=== PATIENT | female | born 1960 | race Caucasian/White ===

== ENCOUNTER 2017-08-05 11:59 | Emergency (ER) | payer MEDICAID, SELFPAY ==
[2017-08-05 13:35] VITALS: BP 132/84; PULSE 100; RESP 20; TEMP 37.2; O2SAT 96; BMI 34.9
[2017-08-05 13:45] LABS: UTC Influenza A Antigen Positive (Negative); UTC Influenza B Antigen Negative (Negative)
--- NOTE | 2017-08-05 14:30 | HMH.EDUTC ---
[facility] [place] Impression: Influenza A Disposition: Home, Self-Care Condition on Discharge: Good Instructions: DI for Influenza -- Adult Additional Instructions: * Too late to start tamiflu. Most effective when started within 48 hours of symptoms onset. * Lots of rest * Increase fluids, water, gatorade, powerade, pedialyte if /toddler/child * Monitor Temp. Tylenol every 4 hours as needed no more then 5 times a day or 4000mg in 24 hours and/or ibuprofen every 6 hours as needed no more then 3200mg in 24 hours (as long as your primary care doctor has told you that it is ok to take both) for fever/aches/pain. ER if fever no less than 101 despite tylenol and Ibuprofen * You (or your child) are contagious until no fever, aches, chills x 24 hours without medication for symptoms. * * Per hospital policy, Your throat swab was sent for culture. Those results are typically sent to your primary care. Be sure to follow up in 2-3 days if no improvement so they can review those results and treat if necessary. If you don't have primary care, I recommend you get one but in the mean time, you will have to return to a walk in clinic. * With your number of medications and allergies, can discuss symptom management with your primary care. I am NOT comfortable giving steroids for your flu symptoms at this time due to risk of complications Follow up IMMEDIATELY for new or worsening symptoms, improvement followed by suddenly feeling worse OR no noticeable improvement over the next 48-72 hours. 911 for difficulty breathing Referrals: Tyron Roth MD [Primary Care Provider] - (IMMEDIATELY for new or worsening symptoms, improvement followed by suddenly feeling worse OR no noticeable improvement over the next 48-72 hours. 911 for difficulty breathing ) Time of Disposition: 14:36 Medical Decision Making Vital Signs: 08/05/17 13:35 Temperature 98.9 F Temperature Source Temporal Artery Scan Pulse Rate [Left] 100 H Respiratory Rate 20 Blood Pressure [Right Arm] 132/84 Blood Pressure Mean [Right Arm] 100 Blood Pressure Source [Right Arm] Automatic Cuff Blood Pressure Position [Right Arm] Sitting 02 Sat by Pulse Oximetry 96 Oxygen Delivery Method Room Air - Lab Data Lab Results 08/05/17 13:44: Influenza Type A Ag Positive A, Influenza Type B Ag Negative, Strep Scn Rapid Clinic Neg[facility] - Roland Inquiry Pt receiving controlled substance: No [facility] [place] - General Stated complaint: possible flu or strep throat Time Seen by Provider: 08/05/17 14:30 Mode of Arrival: Ambulatory Source of Information: Patient Limitations: No Limitations Description of Symptoms (Recalled from Triage Doc. by RN): COUGH, FEVER 3 DAYS HEENT Symptoms (Recalled from RN notes): Yes Resp Symptoms (Recalled from RN notes): No Skin Symptoms (Recalled from RN notes): No MS Symptoms (Recalled from RN notes): No Functional Status (Recalled from RN notes): N - History of Present Illness Provider Complaint: c/o I think I have the flu or strep . Sore throat and cough x 3 days now. Spouse had similiar symptoms and goes to adult daycare where flu has been present. Pt limited to what she can take due to medications and allergies. Has tried dayquil but not helping. - Related Data Home Medications Medication Instructions Recorded Confirmed albuterol sulfate 2 mg/5 mL syrup 2 mg PO Q8H 08/05/17 albuterol sulfate HFA 90 2 puff INHALATION Q6H 08/05/17 mcg/actuation aerosol inhaler atorvastatin 10 mg tablet 10 mg PO QDAY 08/05/17 cholecalciferol (vitamin D3) 3,000 2,000 unit PO QDAY tab 08/05/17 unit tablet clobetasol 0.05 % topical cream 1 applic TOPICAL BID 08/05/17 08/05/17 cyclobenzaprine 10 mg tablet 10 mg PO TID 08/05/17 fluticasone 50 mcg/actuation nasal 50 mcg INTRANASAL Q12H PRN 08/05/17 spray,suspension gabapentin 300 mg capsule 300 mg PO TID 08/05/17 ketotifen 0.025 % (0.035 %) eye 1 drp OPHTHALMIC BID 08/05/17 drops l
--- NOTE | 2017-08-05 14:34 | ED_ITS ---
[facility] [place] Clinical Impression: Influenza A Disposition: Home, Self-Care Condition on Discharge: Good Instructions: DI for Influenza -- Adult Additional Instructions: * Too late to start tamiflu. Most effective when started within 48 hours of symptoms onset. * Lots of rest * Increase fluids, water, gatorade, powerade, pedialyte if infant/toddler/child * Monitor Temp. Tylenol every 4 hours as needed no more then 5 times a day or 4000mg in 24 hours and/or ibuprofen every 6 hours as needed no more then 3200mg in 24 hours (as long as your primary care doctor has told you that it is ok to take both) for fever/aches/pain. ER if fever no less than 101 despite tylenol and Ibuprofen * You (or your child) are contagious until no fever, aches, chills x 24 hours without medication for symptoms. * * Per hospital policy, Your throat swab was sent for culture. Those results are typically sent to your primary care. Be sure to follow up in 2-3 days if no improvement so they can review those results and treat if necessary. If you don' t have primary care, I recommend you get one but in the mean time, you will have to return to a walk in clinic. * With your number of medications and allergies, can discuss symptom management with your primary care. I am NOT comfortable giving steroids for your flu symptoms at this time due to risk of complications Follow up IMMEDIATELY for new or worsening symptoms, improvement followed by suddenly feeling worse OR no noticeable improvement over the next 48-72 hours. 911 for difficulty breathing Referrals: Tyron Roth MD [Primary Care Provider] - (IMMEDIATELY for new or worsening symptoms, improvement followed by suddenly feeling worse OR no noticeable improvement over the next 48-72 hours. 911 for difficulty breathing ) Time of Disposition: 14:36 Medical Decision Making Vital Signs: 08/05/17 13:35 Temperature 98.9 F Temperature Source Temporal Artery Scan Pulse Rate [Left] 100 H Respiratory Rate 20 Blood Pressure [Right Arm] 132/84 Blood Pressure Mean [Right Arm] 100 Blood Pressure Source [Right Arm] Automatic Cuff Blood Pressure Position [Right Arm] Sitting 02 Sat by Pulse Oximetry 96 Oxygen Delivery Method Room Air - Lab Data Lab Results 08/05/17 13:44: Influenza Type A Ag Positive A, Influenza Type B Ag Negative, Strep Scn Rapid Clinic [place] - Roland Inquiry Pt receiving controlled substance: No [facility] [place] HPI - General Stated complaint: possible flu or strep throat Time Seen by Provider: 08/05/17 14:30 Mode of Arrival: Ambulatory Source of Information: Patient Limitations: No Limitations Description of Symptoms (Recalled from Triage Doc. by RN): COUGH, FEVER 3 DAYS HEENT Symptoms (Recalled from RN notes): Yes Resp Symptoms (Recalled from RN notes): No Skin Symptoms (Recalled from RN notes): No MS Symptoms (Recalled from RN notes): No Functional Status (Recalled from RN notes): N - History of Present Illness Provider Complaint: c/o I think I have the flu or strep . Sore throat and cough x 3 days now. Spouse had similiar symptoms and goes to adult daycare where flu has been present. Pt limited to what she can take due to medications and allergies. Has tried dayquil but not helping. - Related Data Home Medications Medication Instructions Recorded Confirmed albuterol sulfate 2 mg/5 mL syrup 2 mg PO Q8H 08/05/17 albuterol sulfate HFA 90 2 puff INHALATION Q6H 08/05/17 mcg/actuation aero
== END 2017-08-05 14:50 | disposition home or self-care (01) ==
PROVIDERS: Emergency Provider Nurse Practitioner Family; Family Provider Physician Assistant; PCP Emergency Medicine
DX: J10.1 Influenza due to other identified influenza virus with other respiratory manifestations (principal); I10 Essential (primary) hypertension; E11.9 Type 2 diabetes mellitus without complications; J44.9 Chronic obstructive pulmonary disease, unspecified; Z88.0 Allergy status to penicillin; Z88.1 Allergy status to other antibiotic agents; Z88.6 Allergy status to analgesic agent; Z88.8 Allergy status to other drugs, medicaments and biological substances
CPT/HCPCS: 87276; 87430; 87804; 87880; 99202

== ENCOUNTER → 2017-08-23 07:28 | Outpatient (CLI) | payer MEDICAID, SELFPAY ==
--- NOTE | 2017-08-23 07:31 | CT_ITS ---
CT cervical spine wo con Ordering Physician: Promise Troncoso Patient Age: 57 years: Female HISTORY: ITS.REASON: NECK SHOULDER PAIN Right neck right shoulder pain TECHNIQUE: Helical CT scanning performed through the cervical spine with sagittal and coronal reconstructions on CT workstation. COMPARISON :None available FINDINGS No fracture nor subluxation at cervical spine. Vertebral bodies are intact . No fracture. Facets intact with with mild degenerative changes throughout the C-spine, most evident at lower C-spine bilateral.. Degenerative disc space narrowing at cervical spondylosis most evident C6/7 following the C5-C6. C6/7 there is mild diffuse posterior marginal osteophytes. The hypertrophic ridging mildly effaces anterior aspect of thecal sac. Mild foraminal encroachment to the right . If symptoms progress consider MRI as it is more sensitive to the esophagus components that may be present here CT best visualizes osseous elements at the cervical canal C5/6 spurring & uncovertebral joint hypertrophy to left yields a mild/moderate left foraminal encroachment. .. Prevertebral soft tissues appear normal. Scattered small nodes throughout the cervical spine. No significant additional findings. Dense calcified likely granulomatous feature at the medial left upper lobe Visualized paranasal sinuses clear as are the mastoid air cells.. IMPRESSION: 1. No fracture nor subluxation 2. Degenerative disc changes & cervical spondylosis C6/7 & C5/6: C6/7 degenerative disc space narrowing with mild diffuse posterior hypertrophic ridging and mild bilateral foraminal encroachment.... most evident to the right C5-C6. Spurring to the left/ Uncovertebral joint hypertrophy to the left yielding mild left foraminal encroachment.
== END ==
PROVIDERS: Family Provider Physician Assistant; PCP Emergency Medicine; Visit Provider Psychiatry & Neurology Neurology
DX: M54.2 Cervicalgia (principal); M25.511 Pain in right shoulder; M25.512 Pain in left shoulder
CPT/HCPCS: 72125

== ENCOUNTER 2017-10-25 13:00 | Emergency (ER) | payer MEDICAID, SELFPAY ==
[2017-10-25 13:02] VITALS: BP 167/100; PULSE 104; RESP 20; TEMP 36.8; O2SAT 97; BMI 34.2
--- NOTE | 2017-10-25 13:38 | HMH.EDHA ---
ED Disposition Clinical Impression: Migraine Qualifiers: Migraine type: other Status migrainosus presence: without status migrainosus Intractability: not intractable Qualified Code(s): G43.809 - Other migraine, not intractable, without status migrainosus Disposition: Home, Self-Care Condition on Discharge: Good Instructions: DI for Migraine Referrals: Bhumika White PA [Primary Care Provider] - Time of Disposition: 13:38 - Critical Care Critical Care Time: No Attestation: On 10/25/17, the high probability of a clinically significant, sudden or life threatening deterioration of the following system(s) required my full and direct attention, intervention and personal management. The time I documented below is in addition to time spent performing reported procedures but includes the following listed in this critical care notation. Medical Decision Making - Medical Records Medical records reviewed: Yes: I reviewed the patient's medical records. - Roland Inquiry Pt receiving controlled substance: No Vital Signs: 10/25/17 13:02 10/25/17 14:15 Temperature 98.2 F 98.6 F Temperature Source Oral Pulse Rate 102 H Pulse Rate [Right Radial] 104 H Respiratory Rate 20 20 Blood Pressure 118/71 Blood Pressure [Right Arm] 167/100 Blood Pressure Mean [Right Arm] 122 Blood Pressure Source [Right Arm] Automatic Cuff Blood Pressure Position [Right Arm] Supine 02 Sat by Pulse Oximetry 97 Oxygen Delivery Method Room Air Room Air Orders (Tests/Meds): ED MEDICATIONS Discontinued Medications Generic Name Dose Route Start Last Admin Trade Name Freq PRN Reason Stop Dose Admin Diphenhydramine HCl 50 mg 10/25/17 13:36 10/25/17 14:10 Benadryl 50mg/1ml Vial IM 10/25/17 13:37 50 mg ONCE ONE Administration Ketorolac Tromethamine 30 mg 10/25/17 13:36 10/25/17 14:09 Toradol 30mg/Ml Vial IM 10/25/17 13:37 30 mg ONCE ONE Administration - Reevaluation(s) Time: 13:35 Reevaluation #1: Patient medically stable, improving, advised to follow-up with pain management. Headache HPI - General Chief Complaint: Headache Stated Complaint: head pain and shoulder pain Time Seen by Provider: 10/25/17 13:15 Mode of Arrival: Ambulatory Limitations: No Limitations Description of Symptoms (Recalled from ER Triage Doc. by RN): migraine started this am , pt has pain on the left side of head . pt also is c/o neck pain which is chronic pt see's pain mangement and gets botox injections for h/a and neck pain - History of Present Illness MD Complaint: migraine Onset (ago): day(s) (1) Onset description: gradual, awoke with symptoms Location: left, temporal Severity: moderate Severity scale (1-10): 8 Quality: throbbing, constant Relieving factors: nothing Exacerbating factors: light, noise, rest Context: occurred at rest Associated symptoms: photophobia, sensitivity to sound Treatments prior to arrival: none - Related Data Home Medications Medication Instructions Recorded Confirmed albuterol sulfate 2 mg/5 mL syrup 2 mg PO Q8H 08/05/17 albuterol sulfate HFA 90 2 puff INHALATION Q6H 08/05/17 mcg/actuation aerosol inhaler atorvastatin 10 mg tablet 10 mg PO QDAY 08/05/17 cholecalciferol (vitamin D3) 3,000 2,000 unit PO QDAY tab 08/05/17 unit tablet clobetasol 0.05 % topical cream 1 applic TOPICAL BID 08/05/17 08/05/17 cyclobenzaprine 10 mg tablet 10 mg PO TID 08/05/17 fluticasone 50 mcg/actuation nasal 50 mcg INTRANASAL Q12H PRN 08/05/17 spray,suspension gabapentin 300 mg capsule 300 mg PO TID 08/05/17 ketotifen 0.025 % (0.035 %) eye 1 drp OPHTHALMIC BID 08/05/17 drops lisinopril 5 mg tablet 5 mg PO QDAY 08/05/17 pantoprazole 40 mg tablet,delayed 40 mg PO QDAY 08/05/[address] 40 mg granules 40 mg PO QDAY 08/05/17 08/05/17 delayed-release for susp in packet Allergies Allergy/AdvReac Type Severity Reaction Status Date / Time SERGIO Inhibitors
[2017-10-25 14:15] VITALS: BP 118/71; PULSE 102; RESP 20; TEMP 37; O2SAT 96
== END 2017-10-25 14:15 | disposition home or self-care (01) ==
PROVIDERS: Emergency Provider Emergency Medicine; Family Provider Physician Assistant; PCP Physician Assistant
DX: G43.909 Migraine, unspecified, not intractable, without status migrainosus (principal); J45.909 Unspecified asthma, uncomplicated; E11.9 Type 2 diabetes mellitus without complications; E78.5 Hyperlipidemia, unspecified; I10 Essential (primary) hypertension; Z88.0 Allergy status to penicillin; Z88.1 Allergy status to other antibiotic agents; Z88.6 Allergy status to analgesic agent; Z88.8 Allergy status to other drugs, medicaments and biological substances
CPT/HCPCS: 96372; 99281

== ENCOUNTER → 2017-10-29 09:18 | Outpatient (CLI) | payer MEDICAID, SELFPAY ==
--- NOTE | 2017-10-29 09:20 | MM_ITS ---
MM Dig screening mamm BI w/CAD CAD Screening COMPARISON: Digital mammograms 10/27/2016 and 10/22/2015 INDICATION: There is no personal or family history of breast cancer TECHNIQUE: Standard CC and MLO images were obtained. R2 CAD reviewed. FINDINGS: The breasts are closed primarily of fat with mild to moderate fiber glandular densities in the subareolar regions bilaterally. The findings are stable and unchanged from previous exams. There is no suspicious lesion in either breast and there are no suspicious microcalcifications. There are few benign-appearing calcifications left breast. IMPRESSION: Stable exam no suspicious lesion seen BI-RADS Category: 2 Benign Finding(s) RECOMMENDED FOLLOW-UP: 1YR - 1 YEAR FOLLOW-UP (A letter has been sent to the patient regarding results of the study.)
== END ==
PROVIDERS: Family Provider Physician Assistant; PCP Physician Assistant; Visit Provider Physician Assistant
DX: Z12.31 Encounter for screening mammogram for malignant neoplasm of breast (principal)
CPT/HCPCS: 77067

== ENCOUNTER → 2017-12-07 10:58 | Outpatient (REF) | payer MEDICAID, SELFPAY ==
[2017-12-07 14:21] LABS: Basophils % 0.4 % (0.1-2.0); Eosinophils # 0.1 K/mm3 (0.0-0.4); Hematocrit 46.3 % (37.0-47.0); Hemoglobin 15.2 g/dL (12.2-16.2); Lymphocytes # 1.8 K/mm3 (0.7-4.5); Lymphocytes % 34.5 K/mm3 (10-50); Mean Corpuscular HGB Conc 32.9 g/dL (31.8-35.4); Mean Corpuscular Hemoglobin 30.4 pg (27.0-31.2); Mean Corpuscular Volume 92.3 fl (81-99); Mean Platelet Volume 7.6 fl (7.4-10.4); Monocytes # 0.4 K/mm3 (0.1-1.0); Monocytes % 7.6 % (1.7-9.3); Neutrophils # 2.8 K/mm3 (1.8-7.8); Neutrophils % 55.5 % (37.0-80.0); Platelet Count 229 K/mm3 (142-424); Red Blood Count 5.01 M/mm3 (4.20-5.40); Red Cell Distribution Width 12.5 % (11.5-17.5); White Blood Count 5.1 K/mm3 (4.8-10.8)
[2017-12-07 14:38] LABS: Alanine Aminotransferase 44 U/L (12-78); Albumin Level 3.5 gm/dL (3.4-5.0); Alkaline Phosphatase 90 U/L (46-116); Anion Gap 13.6 mEq/L (5-15); Aspartate Amino Transferase 28 U/L (15-37); Bilirubin,Total 0.4 mg/dL (0.2-1.0); Blood Urea Nitrogen 17 mg/dL (7-18); Calcium 9.8 mg/dL (8.5-10.1); Carbon Dioxide 28 mmol/L (21.0-32.0); Chloride 106 mmol/L (98-107); Chol/HDL Ratio 3.4 (1-3.5); Cholesterol 162 mg/dL (140-200); Creatinine,Serum 1.12 mg/dL (0.55-1.02); Estimated Glomerular Filt Rate 50 ml/min (>60); GFR (African American) 61 ML/MIN (>60); Globulin 3.4 gm/dl (1.3-3.2); Glucose 84 mg/dL (74-106); HDL Cholesterol 48 mg/dL (29-89); LDL Cholesterol 77 mg/dL (0-130); Potassium 4.6 mmoL/L (3.5-5.1); Sodium 143 mmol/L (136-145); T4 (Thyroxine) 8.7 ug/dl (4.7-13.3); Thyroid Stimulating Hormone 2.17 uIU/ml (0.358-3.740); Total Protein,Serum 6.9 gm/dL (6.4-8.2); Triglycerides 186 mg/dL (30-200); VLDL Cholesterol 37 mg/dL (0-40)
[2017-12-09 06:20] LABS: Vitamin D 25 Hydroxy 61.9 ng/mL (30.0-100.0)
== END ==
LOC: LAB 10:58
PROVIDERS: Visit Provider Physician Assistant
DX: M25.531 Pain in right wrist (principal); I10 Essential (primary) hypertension; E55.9 Vitamin D deficiency, unspecified; R00.0 Tachycardia, unspecified; G62.9 Polyneuropathy, unspecified
CPT/HCPCS: 80053; 80061; 82652; 84436; 84443; 85025

== ENCOUNTER → 2017-12-28 13:29 | Outpatient (CLI) | payer MEDICAID, SELFPAY | PROVIDERS: Family Provider Physician Assistant; PCP Physician Assistant; Visit Provider Internal Medicine | DX: R00.2 Palpitations (principal); I10 Essential (primary) hypertension | CPT/HCPCS: 93306 ==

== ENCOUNTER → 2018-02-10 11:20 | Outpatient (REF) | payer MEDICAID, SELFPAY ==
[2018-02-10 13:42] LABS: Basophils % 0.3 % (0.1-2.0); Eosinophils # 0.2 K/mm3 (0.0-0.4); Eosinophils % 2.8 % (0.1-12.0); Hematocrit 47.4 % (37.0-47.0); Hemoglobin 14.7 g/dL (12.2-16.2); Lymphocytes # 1.8 K/mm3 (0.7-4.5); Lymphocytes % 29.3 K/mm3 (10-50); Mean Corpuscular HGB Conc 31.1 g/dL (31.8-35.4); Mean Corpuscular Hemoglobin 28.9 pg (27.0-31.2); Mean Corpuscular Volume 93.1 fl (81-99); Mean Platelet Volume 8.3 fl (7.4-10.4); Monocytes # 0.2 K/mm3 (0.1-1.0); Monocytes % 4.1 % (1.7-9.3); Neutrophils # 3.8 K/mm3 (1.8-7.8); Neutrophils % 63.4 % (37.0-80.0); Platelet Count 247 K/mm3 (142-424); Red Blood Count 5.09 M/mm3 (4.20-5.40)
[2018-02-10 14:02] LABS: Hemoglobin A1C 5.7 % (0.0-7.0)
[2018-02-10 14:12] LABS: Alanine Aminotransferase 43 U/L (12-78); Albumin Level 3.4 gm/dL (3.4-5.0); Alkaline Phosphatase 96 U/L (46-116); Anion Gap 13.4 mEq/L (5-15); Aspartate Amino Transferase 20 U/L (15-37); Bilirubin,Total 0.5 mg/dL (0.2-1.0); Blood Urea Nitrogen 17 mg/dL (7-18); Calcium 8.8 mg/dL (8.5-10.1); Carbon Dioxide 26 mmol/L (21.0-32.0); Chloride 107 mmol/L (98-107); Creatinine,Serum 1.04 mg/dL (0.55-1.02); Estimated Glomerular Filt Rate 55 ml/min (>60); GFR (African American) 66 ML/MIN (>60); Globulin 3.3 gm/dl (1.3-3.2); Glucose 144 mg/dL (74-106); Potassium 4.4 mmoL/L (3.5-5.1); Sodium 142 mmol/L (136-145); T4 (Thyroxine) 8.1 ug/dl (4.7-13.3); Thyroid Stimulating Hormone 1.63 uIU/ml (0.358-3.740); Total Protein,Serum 6.7 gm/dL (6.4-8.2)
[2018-02-10 15:57] LABS: Erythrocyte Sedimentation Rate 10 mm/hr (0-30)
[2018-02-11 14:29] LABS: Anti-Jo-1 <0.2 AI (0.0-0.9); Anti-Smith Antibody <0.2 AI (0.0-0.9); Antichromatin Antibodies <0.2 AI (0.0-0.9); Antiscleroderma-70 Antibodies <0.2 AI (0.0-0.9); RNP Antibodies <0.2 AI (0.0-0.9); Sjogren's Anti-SS-A <0.2 AI (0.0-0.9); Sjogren's Anti-SS-B <0.2 AI (0.0-0.9)
[2018-02-11 18:00] LABS: Anti-Centromere B Antibodies <0.2 AI (0.0-0.9); Anti-DNA (DS) Ab Qn <1 IU/mL (0-9); Folate 10.9 ng/mL (>3.0); Vitamin B12 505 pg/mL (232-1245); Vitamin D 25 Hydroxy 63.2 ng/mL (30.0-100.0)
== END ==
LOC: LAB 11:20
PROVIDERS: Visit Provider Physician Assistant
DX: E78.5 Hyperlipidemia, unspecified (principal); M54.12 Radiculopathy, cervical region
CPT/HCPCS: 80053; 82607; 82652; 82746; 83036; 84436; 84443; 85025; 85651; 86225; 86235

== ENCOUNTER → 2018-02-18 13:53 | Outpatient (CLI) | payer MEDICAID, SELFPAY ==
[2018-02-18 15:18] VITALS: PULSE 84; PULSE 86
== END ==
PROVIDERS: Family Provider Physician Assistant; PCP Physician Assistant; Visit Provider Physician Assistant
DX: R06.00 Dyspnea, unspecified (principal)
CPT/HCPCS: 94060; 94640

== ENCOUNTER 2018-03-04 07:55 | Outpatient (RCR) | payer MEDICAID, SELFPAY | END 2018-03-04 07:56 | disposition home or self-care (01) | LOC: PT 07:55 | PROVIDERS: Family Provider Physician Assistant; PCP Physician Assistant; Visit Provider Emergency Medicine | DX: R29.6 Repeated falls (principal) ==

== ENCOUNTER → 2018-09-01 16:26 | Outpatient (CLI) | payer MEDICAID, SELFPAY ==
[2018-09-01 16:44] LABS: Basophils % 0.4 % (0.1-2.0); Eosinophils # 0.1 K/mm3 (0.0-0.4); Eosinophils % 1.7 % (0.1-12.0); Hematocrit 47.7 % (37.0-47.0); Hemoglobin 14.7 g/dL (12.2-16.2); Lymphocytes # 1.4 K/mm3 (0.7-4.5); Lymphocytes % 24.3 % (10-50); Mean Corpuscular HGB Conc 30.8 g/dL (31.8-35.4); Mean Corpuscular Hemoglobin 29.9 pg (27.0-31.2); Mean Platelet Volume 9.1 fl (7.4-10.4); Monocytes # 0.4 K/mm3 (0.1-1.0); Monocytes % 7.4 % (1.7-9.3); Neutrophils # 3.9 K/mm3 (1.8-7.8); Neutrophils % 66.2 % (37.0-80.0); Platelet Count 213 K/mm3 (142-424); Red Blood Count 4.92 M/mm3 (4.20-5.40); Red Cell Distribution Width 12.5 % (11.5-17.5); White Blood Count 5.9 K/mm3 (4.8-10.8)
[2018-09-01 17:08] LABS: Alanine Aminotransferase 39 U/L (12-78); Albumin Level 3.4 gm/dL (3.4-5.0); Alkaline Phosphatase 103 U/L (46-116); Anion Gap 13.3 mEq/L (5-15); Aspartate Amino Transferase 19 U/L (15-37); Bilirubin,Total 0.5 mg/dL (0.2-1.0); Blood Urea Nitrogen 17 mg/dL (7-18); Calcium 9.2 mg/dL (8.5-10.1); Carbon Dioxide 29 mmol/L (21.0-32.0); Chloride 104 mmol/L (98-107); Chol/HDL Ratio 3.3 (1-3.5); Cholesterol 172 mg/dL (140-200); Creatinine,Serum 0.97 mg/dL (0.55-1.02); Estimated Glomerular Filt Rate 59 ml/min (>60); GFR (African American) 71 ML/MIN (>60); Globulin 3.4 gm/dl (1.3-3.2); Glucose 84 mg/dL (74-106); HDL Cholesterol 52 mg/dL (29-89); LDL Cholesterol 94 mg/dL (0-130); Potassium 4.3 mmoL/L (3.5-5.1); Sodium 142 mmol/L (136-145); T4 (Thyroxine) 9.4 ug/dl (4.7-13.3); Thyroid Stimulating Hormone 2.02 uIU/ml (0.358-3.740); Total Protein,Serum 6.8 gm/dL (6.4-8.2); Triglycerides 132 mg/dL (30-200); VLDL Cholesterol 26 mg/dL (0-40)
[2018-09-01 17:46] LABS: Hemoglobin A1C 5.6 % (0.0-7.0)
[2018-09-03 12:58] LABS: Vitamin D 25 Hydroxy 63.7 ng/mL (30.0-100.0)
== END ==
PROVIDERS: Visit Provider Physician Assistant
DX: E78.2 Mixed hyperlipidemia (principal); I10 Essential (primary) hypertension; Z86.39 Personal history of other endocrine, nutritional and metabolic disease
CPT/HCPCS: 80053; 80061; 82652; 83036; 84436; 84443; 85025

== ENCOUNTER → 2018-11-24 09:55 | Outpatient (CLI) | payer MEDICAID, SELFPAY ==
--- NOTE | 2018-11-24 09:57 | MM_ITS ---
MM Dig screening mamm BI w/CAD CAD Screening COMPARISON: Digital mammograms with CAD 10/29/2017 and 10/27/2016 INDICATION: There is no personal or family history of breast cancer TECHNIQUE: Standard CC and MLO images were obtained. R2 CAD reviewed. FINDINGS: The breasts are composed primarily of fat with minimal fibroglandular densities in the subareolar regions bilaterally. There is no new or suspicious lesion in either breast and no suspicious microcalcifications. IMPRESSION: Fatty type breast parenchyma with no suspicious lesion seen BI-RADS Category: 1 Negative RECOMMENDED FOLLOW-UP: 1YR - 1 YEAR FOLLOW-UP (A letter has been sent to the patient regarding results of the study.)
== END ==
PROVIDERS: PCP Physician Assistant; Visit Provider Physician Assistant
DX: Z12.31 Encounter for screening mammogram for malignant neoplasm of breast (principal)
CPT/HCPCS: 77067

== ENCOUNTER → 2018-11-29 10:41 | Outpatient (POV) | payer MEDICAID, SELFPAY | PROVIDERS: Visit Provider Internal Medicine | DX: Z00.00 Encounter for general adult medical examination without abnormal findings (principal) ==

== ENCOUNTER → 2018-12-16 12:24 | Outpatient (CLI) | payer MEDICAID, SELFPAY ==
--- NOTE | 2018-12-16 12:25 | MR_ITS ---
MR lumbar spine wo con, MR 3-d myelogram/MRCP HISTORY: Upper, Mid and low back pain. Left leg numbness. ITS.REASON: pain radiating down legs ORDERING PHYSICIAN: SHANNAN Cleaning PATIENT AGE: 58 years Comparison: MRI 06/18/17 TECHNIQUE: Standard multiplanar multiecho sequences are performed without contrast. 3-D MIP and myelographic images are also rendered and reviewed FINDINGS: There is normal alignment. The spinal cord in that the L2 level. There is mild degenerative disc disease at T11-T12 and T12-L1. Mild disc desiccation is noted at L2-L3 with preservation of the disc height. L3-L4: Unremarkable. L4-L5 and L5-S1 shows minimal facet hypertrophic change. There is minimal left sided foraminal narrowing at L5-S1. No disc herniation or canal stenosis. IMPRESSION: 1. Moderate degenerative changes with mild facet and ligamentum flavum hypertrophy with mild left foraminal narrowing at L5-S1. 2. No disc herniation or canal stenosis and no significant change from 06/18/2017
== END ==
PROVIDERS: PCP Physician Assistant; Visit Provider Physician Assistant
DX: M54.5 Low back pain (principal)
CPT/HCPCS: 72148; 76376

== ENCOUNTER → 2018-12-21 11:15 | Outpatient (CLI) | payer MEDICAID, SELFPAY ==
--- NOTE | 2018-12-21 11:21 | XR_ITS ---
XR soft tissue neck CLINICAL INDICATION: 4 body sensation ITS.REASON: Dysphagia, FB sensation ORDERING PHYSICIAN: SHANNAN Cleaning PATIENT AGE: 58 years Comparison: None FINDINGS: No prevertebral soft tissue swelling, air-fluid level, or subglottic stenosis. The epiglottis has an unremarkable appearance. There is a faint calcific density posterior to the larynx as seen on the lateral view measuring 2 mm. This is of questionable clinical significance. A small foreign body is not completely excluded.. This may only be related to laryngeal calcification. CT may confirm if symptoms persist. There is degenerative disc disease at C6-C7 with small anterior and posterior osteophytes IMPRESSION: 1. Small calcific density anterior to the C5-C6 level which may represent some calcification of the posterior larynx versus a foreign body. CT may be of further value if symptoms persist. 2. Otherwise negative
== END ==
PROVIDERS: PCP Physician Assistant; Visit Provider Physician Assistant
DX: R13.10 Dysphagia, unspecified (principal)
CPT/HCPCS: 70360

== ENCOUNTER → 2018-12-21 19:52 | Outpatient (CLI) | payer MEDICAID, SELFPAY | PROVIDERS: PCP Physician Assistant; Visit Provider Nurse Practitioner Family | DX: G47.33 Obstructive sleep apnea (adult) (pediatric) (principal); R40.0 Somnolence; R06.83 Snoring; J44.9 Chronic obstructive pulmonary disease, unspecified | CPT/HCPCS: 95810 ==

== ENCOUNTER → 2018-12-22 13:11 | Outpatient (CLI) | payer MEDICAID, SELFPAY ==
[2018-12-22 13:38] LABS: Basophils % 0.6 % (0.1-2.0); Eosinophils # 0.1 K/mm3 (0.0-0.4); Eosinophils % 2.8 % (0.1-12.0); Hematocrit 42.2 % (37.0-47.0); Hemoglobin 14.2 g/dL (12.2-16.2); Lymphocytes # 1.3 K/mm3 (0.7-4.5); Lymphocytes % 29.5 % (10-50); Mean Corpuscular HGB Conc 33.5 g/dL (31.8-35.4); Mean Corpuscular Hemoglobin 30.4 pg (27.0-31.2); Mean Corpuscular Volume 90.5 fl (81-99); Mean Platelet Volume 6.8 fl (7.4-10.4); Monocytes # 0.3 K/mm3 (0.1-1.0); Monocytes % 6.3 % (1.7-9.3); Neutrophils # 2.7 K/mm3 (1.8-7.8); Neutrophils % 60.9 % (37.0-80.0); Platelet Count 221 K/mm3 (142-424); Red Blood Count 4.67 M/mm3 (4.20-5.40); Red Cell Distribution Width 12.9 % (11.5-17.5); White Blood Count 4.5 K/mm3 (4.8-10.8)
[2018-12-22 16:59] LABS: Alanine Aminotransferase 52 U/L (12-78); Albumin Level 3.3 gm/dL (3.4-5.0); Albumin/Globulin Ratio 1.1 (1.1-1.8); Alkaline Phosphatase 87 U/L (46-116); Anion Gap 12.1 mEq/L (5-15); Aspartate Amino Transferase 29 U/L (15-37); Bilirubin,Total 0.6 mg/dL (0.2-1.0); Blood Urea Nitrogen 9 mg/dL (7-18); Calcium 9.4 mg/dL (8.5-10.1); Carbon Dioxide 30 mmol/L (21.0-32.0); Chloride 104 mmol/L (98-107); Creatinine,Serum 0.98 mg/dL (0.55-1.02); Estimated Glomerular Filt Rate 58 ml/min (>60); GFR (African American) 71 ML/MIN (>60); Globulin 3.1 gm/dl (1.3-3.2); Glucose 94 mg/dL (74-106); Potassium 4.1 mmoL/L (3.5-5.1); Sodium 142 mmol/L (136-145); Total Protein,Serum 6.4 gm/dL (6.4-8.2)
== END ==
PROVIDERS: Visit Provider Otolaryngology
DX: R00.2 Palpitations (principal)
CPT/HCPCS: 36415; 80053; 85025; 93005

== ENCOUNTER → 2018-12-27 09:19 | Outpatient (CLI) | payer MEDICAID, SELFPAY ==
--- NOTE | 2018-12-27 09:22 | FL_ITS ---
EXAM: Barium swallow/esophagram. INDICATION: ITS.REASON: dysphagia ORDERING PHYSICIAN: Bull Monteiro MD PATIENT AGE: 58 years COMPARISON: None TECHNIQUE: In the upright position the patient was observed to swallow barium in both the AP and lateral view. The cervical esophagus was examined under fluoroscopy with images obtained. The patient was then placed prone in the right anterior oblique position and was observed to swallow barium with Valsalva technique . FLUOROSCOPY TIME: 59 seconds FINDINGS: There was no evidence of aspiration. There was normal peristalsis. No filling defects or mucosal abnormalities. No masses or strictures. The esophagus is midline. No external indentation upon the esophagus. No evidence of hiatal hernia IMPRESSION: Negative barium swallow.
== END ==
PROVIDERS: PCP Physician Assistant; Visit Provider Otolaryngology
DX: R13.10 Dysphagia, unspecified (principal); J38.7 Other diseases of larynx
CPT/HCPCS: 74220

== ENCOUNTER 2018-12-29 07:36 | Day surgery (SDC) | payer MEDICAID, SELFPAY ==
[2018-12-27 14:05] VITALS: BMI 33.6
[2018-12-29] VITALS (9 sets, daily range): BP systolic 95–124; BP diastolic 56–81; PULSE 75–97; RESP 18–20; TEMP 36.1–36.8; O2SAT 90–96
[2018-12-29 08:09] LABS: POC Glucose,Bedside 89 (70-110)
--- NOTE | 2018-12-29 08:25 | P.PN_ITS ---
[facility] Anesthesia Checklist - Patient Identification Patient Identification: Arm Band, Verbal (Name & ) - Structural Data Admitted From: Home Planned Operative Procedure/s: laryngoscopy Consent for Planned Operative Procedure(s) Verified: Yes Verified Documents: History and Physical - NPO Status Verified Time NPO: 00:00 - Additional verifications Patient : No Anesthesia Reactions: No Hx Blood Transfusions: No Blood Transfusion Reaction: No Cephalosporin Allergy: No Previous Colonoscopy: Yes - Cardiovascular Assessment Heart Sounds: S1 & S2 Pulse Strength: Baseline Pulse Rhythm: Regular Peripheral Edema: No - Airway Assessment C-Spine Mobility Assessed: Yes TMJ Mobility Assessed: Yes Dentition: Good Dentition - Neurological Assessment Level of Consciousness: Awake, Alert, Appropriate Hx Seizures: No Numbness or tingling in extremities: No - Anesthesia Plan Anesthesia Risk discussed: Yes Anesthesia Plan: Verified ASA Class: III Anesthesia Type: [facility] History I have reviewed the patient's past medical history: Yes Medical History: Reports:: Asthma, Chronic Obstructive Pulmonary Disease (COPD), Diabetes Mellitus Type 2, Hyperlipidemia, Hypertension, Seizures, Ulcer Denies:: Cancer, Diabetes Mellitus Type 1, Internal Pacemaker, MRSA *Have you ever received a pneumonia vaccine?: Yes *Have you received a flu vaccine this season?: Yes Other Medical History: Reports: Arthritis. Denies: Blood Transfusion Reaction Other Surgeries: Yes: Colon Resection, , Hysterectomy-Total. No: Pacemaker Amputation: No Fractures: No - *Social History Educational Level: Completed Grade School Smoking Status: Former smoker Alcohol Intake: never Alcohol Intake Frequency:: other *Occupational Status:: disabled Housing: house Household Members: family *Travel in the last 8 weeks: None - Psychiatric History Expresses thoughts of harming self/others: None Suicide Plan Description: No Plan Family Hx:: No significant family history
--- NOTE | 2018-12-29 09:52 | P.PN_ITS ---
[facility] Anesthesia Record Part I Intake, IV Amount: 550 Estimated blood loss (mL): 0 Urine output (mL): 30 Blood Products used (#): none Blood Pressure: 95/56 SaO2: 90 Pulse Rate: 89 Respiratory Rate: 20 Temperature: 97.0 F Patient is:: Drowsy, Mask O2, Stable Stable to PACU at:: 09:46
--- NOTE | 2018-12-29 09:53 | P.PN_ITS ---
[facility] Anesthesia Record Part II Discharge Time: 10:16 Destination: Surgical Day Care (OP Surgery) PACU nurse assessment reviewed?: Yes Patient Condition:: Good Anesthesia Complications:: None Swallowing reflex intact?: Yes Cyanosis?: No
--- NOTE | 2018-12-29 17:05 | HMH.OPNOTE ---
Date of procedure: 12/29/18 Pre-op Diagnosis:: 1. Polyp larynx 2. Dysphagia Post-op Diagnosis:: same Procedure performed:: 1. Microlaryngoscopy 2. esophagoscopy Surgeon:: Bull Monteiro MD [employer]:: Brandon Garcia Anesthesia: GETSyd Estimated blood loss (mL): 1 Operative findings:: same Operative note:: With the patient under general anesthesia the SlimLine laryngoscope was used to examine the larynx and hypopharynx. There were was a polypoid lesion involving the right arytenoid of the larynx and it was removed with the endoscopic approach and cupped forceps. The cricopharyngeus of the cervical esophagus was then examined and there was a moderate amount of tightness of the cricopharyngeus muscle that was dilated. The patient tolerated the procedure well and was sent to recovery in good general condition. Condition: stable Disposition: PACU Complications:: none
--- NOTE | 2018-12-29 17:08 | P.OP_ITS ---
Date of procedure: 12/29/18 Pre-op Diagnosis:: 1. Polyp larynx 2. Dysphagia Post-op Diagnosis:: same Procedure performed:: 1. Microlaryngoscopy 2. esophagoscopy Surgeon:: Bull Monteiro MD CHURN TENDER:: Brandon Garcia Anesthesia: GETSyd Estimated blood loss (mL): 1 Operative findings:: same Operative note:: With the patient under general anesthesia the SlimLine laryngoscope was used to examine the larynx and hypopharynx. There were was a polypoid lesion involving the right arytenoid of the larynx and it was removed with the endoscopic approach and cupped forceps. The cricopharyngeus of the cervical esophagus was then examined and there was a moderate amount of tightness of the cricopharyngeus muscle that was dilated. The patient tolerated the procedure well and was sent to recovery in good general condition. Condition: stable Disposition: PACU Complications:: none
== END 2018-12-29 10:48 | disposition home or self-care (01) ==
LOC: OR 07:36
PROVIDERS: PCP Physician Assistant; Visit Provider Otolaryngology
PROC: 0CJS8ZZ Inspection of Larynx, Via Natural or Artificial Opening Endoscopic (ICD-10-PCS; CPT 31578; principal; 2018-12-29 08:45)
DX: J38.1 Polyp of vocal cord and larynx (principal)
CPT/HCPCS: 31578; 43220; 82962; 96374; 96375; J0330; J2405

== ENCOUNTER → 2019-01-16 11:39 | Outpatient (CLI) | payer MEDICAID, SELFPAY ==
[2019-01-16 13:30] VITALS: PULSE 87; PULSE 90
--- NOTE | 2019-01-16 14:12 | CT_ITS ---
CT lung screening EXAM: CT LUNG LOW DOSE WO CONTRAST HISTORY: 34 pack-year smoking history, asymptomatic for lung cancer ITS.REASON: H/O NICOTINE DEPENDENCE ORDERING PHYSICIAN: Oren Corrales MD PATIENT AGE: 58 years COMPARISON: None TECHNIQUE: The exam was performed on a GE Light Speed [address] scanner using 2.90 mGy CTDI. A low dose helical CT CHEST was performed on a multi-detector scanner. All CT scans at the facility use one or more dose reduction, viz: automated exposure control, ma/kV adjustment per patient size (including targeted exams where dose is matched to indication, i.e. head), or iterative reconstruction technique. The LDCT was performed in a facility that meets the criteria for the screening program. Data regarding this exam was submitted to ACR which is an approved registry. The order for this exam indicates that it came as a result of a lung cancer screening counseling shard decision-making visit that included all the elements required of such a visit including smoking cessation. The radiologist interpreting this exam meets the CMS criteria for the LDCT lung cancer screening program. The exam is reported using the Lung-RADS classification scale and reported to the ACR registry. NOTE: This study was performed for the specific purposes of lung cancer screening and is not an alternative to diagnostic chest CT. RADIATION DOSE: CTDI vol(CT dose Index-volume) = 2.90mG DLP (Dose Length Product) = 101.34 mGcm FINDINGS: 4 mm noncalcified nodule right upper lobe image #29. Calcified granuloma left upper lobe. Atelectatic or fibrotic changes in the lung bases. IMPRESSION: 1. Lung RADS Category: 2, benign 2. Other findings: Atelectatic or fibrotic changes in the lung bases RECOMMENDATIONS: 12 month LDCT follow-up
== END ==
PROVIDERS: PCP Physician Assistant; Visit Provider Internal Medicine
DX: Z12.2 Encounter for screening for malignant neoplasm of respiratory organs (principal); Z87.891 Personal history of nicotine dependence
CPT/HCPCS: 94060; 94618; 94640; 94727; 94729

== ENCOUNTER → 2019-01-26 06:27 | Outpatient (CLI) | payer MEDICAID, SELFPAY ==
--- NOTE | 2019-01-26 06:29 | CA_ITS ---
PROCEDURE: 2-D M-mode and color Doppler study INDICATIONS FOR THE TEST: Chest painX COPDX Heart Murmur Tobacco SmokingEX Palpitations Fatigue Syncope Edema Hypertension Diabetes Mellitus Rheumatic Fever SOBXDOEXObesityXHyperlipidemia Family History HD Additional History ABN EKG PATIENT INFORMATION HEIGHT: 63 WEIGHT:184 GENDER: Female B/P:127/74 2-D/M-MODE INTERPRETATION: 2-D MEASUREMENTS OBSERVED VALUES IN CMS Right Ventricular Dimension (RVDd) 3.0 Interventricular Septum (Thickness)(IVsd) 1.1 Left Ventricular Internal Dimensions(LVIDd) 4.8 Left Ventricular Posterior Wall (Thickness)(LVPWd) 1.1 Aortic Root 3.8 Aortic Cusp Separation 2.0 Left Atrial Dimensions (LAD) 3.9 2D 1. Left atrium is mildly enlarged, left ventricle is normal size, left ventricle wall thickness is upper limit of normal, there is preserved left ventricular systolic function, visually estimated ejection fraction of 55% with no regional wall motion abnormality. 2. The right atrium and right ventricle are mildly enlarged with normal contractility. 3. The aortic valve is minimally thickened and fibrosed. 4. The mitral and tricuspid valve are grossly normal. 5. The pulmonic valve is poorly visualized. 6. No significant pericardial effusion noted. DOPPLER INTERROGATION: Doppler interrogation of the aortic, mitral and tricuspid valvular presence of mild mitral and tricuspid regurgitation, tricuspid regurgitation jet velocity is inadequate for calculation of the right ventricular systolic pressure, diastolic parameters are inconclusive. CONCLUSION: 1. Mildly enlarged left atrium, normal left ventricular size, visually estimated ejection fraction 55% with no regional wall motion abnormality, diastolic parameters are inconclusive. 2. Mildly enlarged right ventricle with normal contractility. 3. Mild mitral and tricuspid regurgitation 4. No significant pericardial effusion noted.
--- NOTE | 2019-01-26 06:31 | NM_ITS ---
CARDIOLITE SPECT MYOCARDIAL PERFUSION LEXISCAN, REST AND STRESS: History: Hypertension, diabetes, hyperlipidemia, shortness of breath and fatigue Procedure: Patient received a 0.4 intravenous Lexiscan, resting heart rate was 68 bpm resting blood pressure 151/91, with Lexiscan maximum heart rate achieved was 101 bpm which is less than 85% of the maximum] heart rate and a blood pressure was 140/74. With Lexiscan patient complained of nausea requiring intravenous Aminophyllin to reverse symptoms. Electrocardiogram: Resting electrocardiogram showed sinus rhythm, with Lexiscan there is less than 1.[address] segment depression noted from the baseline EKG. The EKG portion of the Lexiscan Myoview is nondiagnostic. Cardiac stress and resting SPECT images: Cardiac stress and resting SPECT images were obtained using technetium 99 Myoview 28.9 mCi stress and 10.2 mCi at rest. Gated SPECT further analysis of segmental wall motion and calculation of the ejection fraction also done. Cardiac stress and resting SPECT images show decreased tracer activity in the anterior wall in the apex which improves on the resting images raising the concern is for presence of reversible ischemia, however possibility of soft tissue attenuation from the breast cannot be excluded, computer derived ejection fraction is over 65% with no regional wall motion abnormality, right ventricle is normal size and contractility. Conclusion: 1. The EKG portion of the Lexiscan Myoview is nondiagnostic. 2. Scintigraphic evidence of mild reversible ischemia involving the anterior and apical wall, however this study is technically limited due to patient's body habitus, possibility of soft tissue attenuation from the breast cannot be excluded. Computer derived ejection fraction is over 65% with no regional wall motion abnormality, right ventricle is normal size and contractility. 3. Equivocal myocardial perfusion imaging.
--- NOTE | 2019-01-26 09:32 | HMH.ITSHM ---
Current Home Medications as stated by this patient Gardenia Morales or investment representative. [] albuterol asa oxybutynin patanol methocarbamel diazepam bisoprolol pantoprazole
== END ==
PROVIDERS: PCP Emergency Medicine; Visit Provider Nurse Practitioner Family
DX: R06.00 Dyspnea, unspecified (principal); I10 Essential (primary) hypertension
CPT/HCPCS: 78452; 93017; 93306; A9502; J2785

== ENCOUNTER → 2019-02-01 11:41 | Outpatient (CLI) | payer MEDICAID, SELFPAY ==
--- NOTE | 2019-02-01 11:44 | XR_ITS ---
XR elbow RT min 3V HISTORY: ITS.REASON: right elbow pain s/p fall ORDERING PHYSICIAN: SHANNAN Cleaning PATIENT AGE: 58 years COMPARISON: None FINDINGS: BONY STRUCTURES: No fracture or dislocation. No lytic or blastic change. Normal mineralization. SOFT TISSUES: Unremarkable. No radio opaque foreign bodies. No displaced fat pad. JOINT SPACE: Well-preserved. No significant arthritic changes evident. IMPRESSION: Negative elbow.
== END ==
PROVIDERS: PCP Physician Assistant; Visit Provider Physician Assistant
DX: M25.521 Pain in right elbow (principal)
CPT/HCPCS: 73080

== ENCOUNTER → 2019-02-08 09:34 | Outpatient (CLI) | payer MEDICAID, SELFPAY ==
[2019-02-08 10:11] LABS: Basophils % 0.4 % (0.1-2.0); Eosinophils # 0.3 K/mm3 (0.0-0.4); Eosinophils % 5.1 % (0.1-12.0); Hematocrit 49.5 % (37.0-47.0); Hemoglobin 15.1 g/dL (12.2-16.2); Lymphocytes # 1.4 K/mm3 (0.7-4.5); Lymphocytes % 21.3 % (10-50); Mean Corpuscular HGB Conc 30.5 g/dL (31.8-35.4); Mean Corpuscular Volume 98.3 fl (81-99); Mean Platelet Volume 7.4 fl (7.4-10.4); Monocytes # 0.3 K/mm3 (0.1-1.0); Neutrophils # 4.6 K/mm3 (1.8-7.8); Neutrophils % 68.3 % (37.0-80.0); Platelet Count 253 K/mm3 (142-424); Red Blood Count 5.03 M/mm3 (4.20-5.40); Red Cell Distribution Width 12.8 % (11.5-17.5); White Blood Count 6.7 K/mm3 (4.8-10.8)
[2019-02-08 11:14] LABS: Anion Gap 14.2 mEq/L (5-15); Blood Urea Nitrogen 13 mg/dL (7-18); Calcium 9.5 mg/dL (8.5-10.1); Carbon Dioxide 27 mmol/L (21.0-32.0); Chloride 103 mmol/L (98-107); Creatinine,Serum 1.26 mg/dL (0.55-1.02); Estimated Glomerular Filt Rate 44 ml/min (>60); GFR (African American) 53 ML/MIN (>60); Glucose 113 mg/dL (74-106); Potassium 4.2 mmoL/L (3.5-5.1); Sodium 140 mmol/L (136-145)
== END ==
PROVIDERS: Visit Provider Physician Assistant
DX: E78.2 Mixed hyperlipidemia (principal); I10 Essential (primary) hypertension; R00.2 Palpitations; R06.02 Shortness of breath
CPT/HCPCS: 36415; 80048; 85025

== ENCOUNTER → 2019-02-27 08:38 | Outpatient (POV) | payer MEDICAID, SELFPAY | PROVIDERS: Visit Provider Specialist | DX: R29.898 Other symptoms and signs involving the musculoskeletal system (principal) | CPT/HCPCS: 95886; 95908 ==

== ENCOUNTER → 2019-02-28 12:23 | Outpatient (POV) | payer MEDICAID, SELFPAY | PROVIDERS: Visit Provider Internal Medicine | DX: Z00.00 Encounter for general adult medical examination without abnormal findings (principal) ==

== ENCOUNTER → 2019-03-14 13:19 | Outpatient (CLI) | payer MEDICAID, SELFPAY ==
[2019-03-14 14:27] LABS: Hemoglobin A1C 5.5 % (0.0-7.0)
== END ==
PROVIDERS: Visit Provider Physician Assistant
DX: E11.9 Type 2 diabetes mellitus without complications (principal)
CPT/HCPCS: 83036

== ENCOUNTER → 2019-03-23 09:03 | Outpatient (CLI) | payer MEDICAID, SELFPAY ==
--- NOTE | 2019-03-23 09:08 | XR_ITS ---
PROCEDURE: XR ACUTE ABDOMEN SERIES CLINICAL INDICATION: Obstipation Abdominal pain, constipation, shortness of air COMPARISON: LUNGSCREEN CT lung screening from 01/16/2019 FINDINGS: Frontal view of the chest shows no acute finding. There is increased density in both lower lobes but is felt to be due to soft tissue attenuation. No definite lobar consolidation or collapse evident. Upright and supine views of the abdomen demonstrates surgical clips in the left upper quadrant and pelvic region. There is a mild amount of retained colonic feces. Sutures are present in the pelvis. No intestinal obstruction or free air. IMPRESSION: No acute finding. Mild amount of retained colonic feces. Dictated by: Juan Rosenberg MD 03/23/2019 10:37 Signed by: <Electronically signed by Juan Rosenberg MD in [place]> 03/23/2019 10:37
== END ==
PROVIDERS: PCP Physician Assistant; Visit Provider Physician Assistant
DX: K59.00 Constipation, unspecified (principal)
CPT/HCPCS: 74021

== ENCOUNTER 2019-05-15 15:00 | Outpatient (RCR) | payer MEDICAID, SELFPAY | END 2019-05-15 15:05 | disposition home or self-care (01) | LOC: PT 15:00 | PROVIDERS: Visit Provider Physical Medicine & Rehabilitation | DX: M54.5 Low back pain (principal); M79.2 Neuralgia and neuritis, unspecified | CPT/HCPCS: 97010; 97014; 97110; 97163; G0283 ==

== ENCOUNTER → 2019-06-13 14:14 | Outpatient (CLI) | payer MEDICAID, SELFPAY ==
--- NOTE | 2019-06-13 14:20 | XR_ITS ---
PROCEDURE: XR FOOT WT BEARING LT 3V CLINICAL INDICATION: foor pain Foot pain COMPARISON: FTL3 FOOT-LT-3 VIEWS from 01/21/2016 FTR3 FOOT-RT-3 VIEWS from 01/21/2016 XR ANKLE WT BEARING LT MIN 3V from 06/13/2019 FINDINGS: No fracture or dislocation. No lytic or blastic change. There is normal mineralization. The joint spaces are well-preserved. No significant degenerative/arthritic changes. No erosive changes evident. Other findings:None. IMPRESSION: Negative left ankle and negative left foot Dictated by: Juan Rosenberg MD 06/13/2019 14:56 Electronically signed by Juan Rosenberg MD in [place] 06/13/2019 14:56
--- NOTE | 2019-06-13 14:20 | XR_ITS ---
PROCEDURE: XR ANKLE WT BEARING RT MIN 3V CLINICAL INDICATION: foor pain Right foot pain and ankle pain COMPARISON: XR FOOT WT BEARING RT 3V from 06/13/2019 FINDINGS: No fracture, dislocation, lytic change, or blastic change evident. No significant degenerative change. There is a bipartite os cuboideum IMPRESSION: Negative right ankle and foot Dictated by: Juan Rosenberg MD 06/13/2019 15:00 Electronically signed by Juan oRsenberg MD in [place] 06/13/2019 15:00
--- NOTE | 2019-06-13 14:20 | XR_ITS ---
PROCEDURE: XR ANKLE WT BEARING RT MIN 3V CLINICAL INDICATION: foor pain Right foot pain and ankle pain COMPARISON: XR FOOT WT BEARING RT 3V from 06/13/2019 FINDINGS: No fracture, dislocation, lytic change, or blastic change evident. No significant degenerative change. There is a bipartite os cuboideum IMPRESSION: Negative right ankle and foot Dictated by: Juan Rosenberg MD 06/13/2019 15:00 Electronically signed by Juan Rosenberg MD in [place] 06/13/2019 15:00
== END ==
PROVIDERS: PCP Physician Assistant; Visit Provider Podiatrist
DX: M79.672 Pain in left foot (principal); M79.671 Pain in right foot; M25.572 Pain in left ankle and joints of left foot; M25.571 Pain in right ankle and joints of right foot
CPT/HCPCS: 73610; 73630

== ENCOUNTER → 2019-06-22 13:25 | Outpatient (CLI) | payer MEDICAID, SELFPAY ==
[2019-06-22 14:02] LABS: Basophils % 0.4 % (0.1-2.0); Eosinophils # 0.1 K/mm3 (0.0-0.4); Eosinophils % 1.7 % (0.1-12.0); Hemoglobin 14.4 g/dL (12.2-16.2); Lymphocytes # 1.4 K/mm3 (0.7-4.5); Lymphocytes % 25.5 % (10-50); Mean Corpuscular HGB Conc 31.4 g/dL (31.8-35.4); Mean Corpuscular Hemoglobin 30.2 pg (27.0-31.2); Mean Platelet Volume 8.3 fl (7.4-10.4); Monocytes # 0.3 K/mm3 (0.1-1.0); Monocytes % 5.9 % (1.7-9.3); Neutrophils # 3.8 K/mm3 (1.8-7.8); Neutrophils % 66.5 % (37.0-80.0); Platelet Count 226 K/mm3 (142-424); Red Blood Count 4.79 M/mm3 (4.20-5.40); Red Cell Distribution Width 13.7 % (11.5-17.5); White Blood Count 5.6 K/mm3 (4.8-10.8)
[2019-06-22 14:36] LABS: Alanine Aminotransferase 19 U/L (12-78); Albumin Level 3.6 gm/dL (3.4-5.0); Albumin/Globulin Ratio 1.2 (1.1-1.8); Alkaline Phosphatase 90 U/L (46-116); Anion Gap 11.1 mEq/L (5-15); Aspartate Amino Transferase 15 U/L (15-37); Bilirubin,Total 0.5 mg/dL (0.2-1.0); Blood Urea Nitrogen 18 mg/dL (7-18); Calcium 8.9 mg/dL (8.5-10.1); Carbon Dioxide 28 mmol/L (21.0-32.0); Chloride 104 mmol/L (98-107); Chol/HDL Ratio 3.1 (1-3.5); Cholesterol 159 mg/dL (140-200); Creatinine,Serum 0.97 mg/dL (0.55-1.02); Estimated Glomerular Filt Rate 59 ml/min (>60); GFR (African American) 71 ML/MIN (>60); Globulin 3.1 gm/dl (1.3-3.2); Glucose 81 mg/dL (74-106); HDL Cholesterol 52 mg/dL (29-89); LDL Cholesterol 79 mg/dL (0-130); Potassium 4.1 mmoL/L (3.5-5.1); Sodium 139 mmol/L (136-145); T4 (Thyroxine) 9.4 ug/dl (4.7-13.3); Thyroid Stimulating Hormone 2.03 uIU/ml (0.358-3.740); Total Protein,Serum 6.7 gm/dL (6.4-8.2); Triglycerides 139 mg/dL (30-200); VLDL Cholesterol 28 mg/dL (0-40)
[2019-06-23 09:18] LABS: Vitamin D 25 Hydroxy 60.1 ng/mL (30.0-100.0)
[2019-06-23 19:02] LABS: Hemoglobin A1C 5.3 % (0.0-7.0)
== END ==
PROVIDERS: Visit Provider Physician Assistant
DX: E11.9 Type 2 diabetes mellitus without complications (principal); E55.9 Vitamin D deficiency, unspecified
CPT/HCPCS: 80053; 80061; 82652; 83036; 84436; 84443; 85025

== ENCOUNTER → 2019-06-23 10:32 | Outpatient (CLI) | payer MEDICAID, SELFPAY ==
--- NOTE | 2019-06-23 10:37 | US_ITS ---
APPROVED REPORT Exam Type: Lower Extremity Segmental Pressures Lockstitch Topstitcher: Giana Oglesby RVT Indications Claudication: Numbness/Tingling History of Smoking Risk Factors Hypertension Hyperlipidemia History of Smoking Pressures/Indices Right Indices Left Indices Brachial 131.00 mmHg Brachial 134.00 mmHg Low Thigh 134.00 mmHg 1.00 Low Thigh 130.00 mmHg 0.97 Calf 137.00 mmHg 1.02 Calf 136.00 mmHg 1.01 Ankle(PT) 138.00 mmHg 1.03 Ankle(PT) 145.00 mmHg 1.08 Ankle(DP) 135.00 mmHg 1.01 Ankle(DP) 139.00 mmHg 1.04 Digit 108.00 mmHg 0.81 Digit 107.00 mmHg 0.80 Findings RT LISA:1.03 LT LISA:1.08 RT TBI:0.81 LT LISA:0.80 NORMAL PULES BILATERALLY. NORMAL WAVEFORMS BILLATERALLY. Conclusion No evidence significant arterial disease throughout the right and left lower extremities as evidenced by normal resting PVR waveforms and normal resting indices. Electronically signed by : Juan Rosenberg MD 06/23/2019 17:31:25
== END ==
PROVIDERS: PCP Physician Assistant; Visit Provider Podiatrist
DX: R68.89 Other general symptoms and signs (principal)
CPT/HCPCS: 93923

== ENCOUNTER → 2019-08-14 12:27 | Outpatient (CLI) | payer MEDICAID, SELFPAY ==
--- NOTE | 2019-08-14 12:28 | CA_ITS ---
APPROVED REPORT Bilateral Lower Extremity Venous Study for DVT. Clinical Training Specialist: HERMINIA Indications Lower Extremity Pain: Right pain swelling RLE Risk Factors History of Smoking Patient states she woke up with a knot behind her knee. She denies trauma. Medications Aspirin 81 mg ASA daily. Vein Imaging CFV (R): compressive, spontaneous, phasic, augmentation FEM (R): compressive, spontaneous, phasic, augmentation POP (R): compressive, spontaneous, phasic, augmentation PTV (R): Compressible GSV (R): compressive, spontaneous, phasic, augmentation Peroneals (R):Compressible GAS (R): Compressible Findings No evidence of DVT or superficial thrombophlebitis in the veins scanned of the right lower extremity. Conclusion No evidence of DVT or superficial thrombophlebitis in the veins scanned of the right lower extremity. Electronically signed by : Juan Rosenberg MD 08/14/2019 16:41:32
== END ==
PROVIDERS: PCP Emergency Medicine; Visit Provider Physician Assistant
DX: M79.604 Pain in right leg (principal); M79.89 Other specified soft tissue disorders
CPT/HCPCS: 93971

== ENCOUNTER 2019-09-26 09:00 | Outpatient (RCR) | payer MEDICAID, SELFPAY | END 2019-09-26 10:00 | disposition home or self-care (01) | LOC: PT 09:00 | PROVIDERS: PCP Emergency Medicine; Visit Provider Orthopaedic Surgery | DX: M47.812 Spondylosis without myelopathy or radiculopathy, cervical region (principal) | CPT/HCPCS: 97010; 97012; 97014; 97035; 97110; 97163; G0283 ==

== ENCOUNTER 2019-11-14 11:27 | Emergency (ER) | payer MEDICAID, SELFPAY ==
--- NOTE | 2019-11-14 | ECG_ITS ---
APPROVED REPORT Exam: Resting ECG HR:72 bpm ECG Measurements Heart Rate 72 AXES TN 178 P 21 QRSd 88 QRS 60 QT 382 T 63 QTc 418 <Conclusion> Normal sinus rhythm Low voltage QRS Borderline ECG Electronically signed by : Brandon Rg, 11/15/2019 06:31:32
[2019-11-14 11:30] VITALS: BP 118/81; PULSE 66; RESP 16; TEMP 36.3; O2SAT 98
--- NOTE | 2019-11-14 11:32 | HMH.EDGENADL ---
ED Disposition Clinical Impression: Vertigo Disposition: Home, Self-Care Condition on Discharge: Good Instructions: DI for Vertigo Additional Instructions: Antivert and Phenergan as prescribed. Follow-up with primary care provider if not improving in 2 to 3 days. Labs performing a culture on your urine, follow-up the results of this with your primary care provider in 2 to 3 days. Return to the emergency room if severe dizziness/unable to walk or vomiting. Prescriptions: Promethazine HCl [Phenergan 25mg tab] 25 mg PO Q6HP PRN #15 tab PRN Reason: Nausea And Vomiting Transmission Status: Sent to [facility] Meclizine HCl [Antivert 25mg tablet] 25 mg PO TIDP PRN #15 tab PRN Reason: Vertigo Transmission Status: [facility] to [facility] Referrals: Provider,Referral, [Primary Care Provider] - - Critical Care Critical Care Time: No Attestation: On , the high probability of a clinically significant, sudden or life threatening deterioration of the following system(s) required my full and direct attention, intervention and personal management. The time I documented below is in addition to time spent performing reported procedures but includes the following listed in this critical care notation. Medical Decision Making - Roland Inquiry Pt receiving controlled substance: No Vital Signs: 11/14/19 11:30 Temperature 97.4 F L Temperature Source Oral Pulse Rate [Right Brachial] 66 Respiratory Rate 16 Blood Pressure [Right Arm] 118/81 Blood Pressure Mean [Right Arm] 93 Blood Pressure Source [Right Arm] Automatic Cuff Blood Pressure Position [Right Arm] Supine 02 Sat by Pulse Oximetry 98 Oxygen Delivery Method Room Air - Lab Data Lab Results 11/14/19 11:30: WBC 5.2, RBC 4.50, Hgb 13.5, Hct 41.9, MCV 93.1, MCH 30.0, MCHC 32.2, RDW 13.4, Plt Count 224, MPV 7.3 L, Neut % (Auto) 68.5, Lymph % (Auto) 23.9, [place] % (Auto) 5.1, Eos % (Auto) 2.2, Baso % (Auto) 0.4, Neut # (Auto) 3.6, Lymph # (Auto) 1.2, [place] # (Auto) 0.3, Eos # (Auto) 0.1, Baso # (Auto) 0.0 11/14/19 11:30: Sodium 140, Potassium 4.0, Chloride 103, Carbon Dioxide 31 H, Anion Gap 10.0, BUN 16, Creatinine 1.00, Estimated Creat Clear 6, Estimated GFR 57 L, Est GFR ( Amer) 69, Glucose 116 H, Calcium 9.4, Total Bilirubin 0.4, AST 22, ALT 20, Alkaline Phosphatase 73, Troponin I < 0.01, Total Protein 6.7, Albumin 4.0, Globulin 2.7, Albumin/Globulin Ratio 1.5 11/14/19 11:30: NT-Pro-B Natriuret Pep 258 H 11/14/19 11:50: Urine Color Yellow, Urine Appearance Clear, Urine pH 7.0, Ur Specific [place] 1.020, Urine Protein Negative, Urine Glucose (UA) Negative, Urine Ketones Negative, Urine Blood Negative, Urine Nitrate Negative, Urine Bilirubin Negative, Urine Urobilinogen 0.2, Ur Leukocyte Esterase 1+ A, Urine RBC Occasional, Urine WBC 3-5, Ur Squamous Epith Cells 3-5, Urine Bacteria 1+ Result diagrams: 11/14/19 11:30 11/14/19 11:30 Orders (Tests/Meds): ED MEDICATIONS Discontinued Medications Generic Name Dose Route Start Last Admin Trade Name Freq PRN Reason Stop Dose Admin Sodium Chloride 1,000 mls @ 999 mls/hr 11/14/19 11:45 11/14/19 11:53 Sod Chlor 0.9% 1000ml Bag IV 11/14/19 12:45 999 mls/hr .Q1H1M RIGO Administration Meclizine HCl 25 mg 11/14/19 12:04 11/14/19 12:38 Antivert 25mg Tablet PO 11/14/19 12:05 25 mg ONCE ONE Administration Ondansetron HCl 4 mg 11/14/19 11:39 11/14/19 11:53 Zofran 4mg/2ml Vial IV 11/14/19 11:40 4 mg ONCE ONE Administration Promethazine HCl 12.5 mg 11/14/19 12:04 11/14/19 12:38 Phenergan 25mg/Ml 1ml Vial IV 11/14/19 12:05 12.5 mg ONCE ONE Administration Sodium Chloride 25 ml 11/14/19 12:04 Sod Chlor 0.9% 25ml Bag IV 11/14/19 12:05 ONCE ONE ORDERS Category Date Time Status Troponin I Q3H Lab 11/14/19 15:00 Ordered Troponin I Q3H Lab 11/14/19 17:45 Ordered Urine Culture Stat Micro 11/14/19 11:50 Received - CT Data CT Scan: He
--- NOTE | 2019-11-14 11:38 | XR_ITS ---
PROCEDURE: XR CHEST 2V CLINICAL HISTORY: chest tightness COMPARISON: No exams were available for comparison FINDINGS: There is borderline cardiomegaly without failure. There is increased density in the left lung base which may in part be due to pericardial fat pad having a somewhat similar appearance compared to the previous exam. Suspect also patchy infiltrate in the lingula. No acute bony abnormalities. IMPRESSION: Borderline cardiomegaly with patchy infiltrate of the lingula Dictated by: Juan Rosenberg MD 11/14/2019 15:36 Electronically signed by Juan Rosenberg MD in [place] 11/14/2019 15:36
[2019-11-14 11:51] LABS: Basophils % 0.4 % (0.1-2.0); Eosinophils # 0.1 K/mm3 (0.0-0.4); Eosinophils % 2.2 % (0.1-12.0); Hematocrit 41.9 % (37.0-47.0); Hemoglobin 13.5 g/dL (12.2-16.2); Lymphocytes # 1.2 K/mm3 (0.7-4.5); Lymphocytes % 23.9 % (10-50); Mean Corpuscular HGB Conc 32.2 g/dL (31.8-35.4); Mean Corpuscular Volume 93.1 fl (81-99); Mean Platelet Volume 7.3 fl (7.4-10.4); Monocytes # 0.3 K/mm3 (0.1-1.0); Monocytes % 5.1 % (1.7-9.3); Neutrophils # 3.6 K/mm3 (1.8-7.8); Neutrophils % 68.5 % (37.0-80.0); Platelet Count 224 K/mm3 (142-424); Red Cell Distribution Width 13.4 % (11.5-17.5); White Blood Count 5.2 K/mm3 (4.8-10.8)
[2019-11-14 11:56] LABS: Chloride 103 mmol/L (98-107); Sodium 140 mmol/L (136-145)
[2019-11-14 11:58] LABS: Blood Urea Nitrogen 16 mg/dl (7-17); Creatinine Clearance Estimated 6 mL/min (50-200); Estimated Glomerular Filt Rate 57 ml/min (>60); GFR (African American) 69 ML/MIN (>60)
[2019-11-14 11:59] LABS: Alanine Aminotransferase 20 U/L (12-78); Albumin/Globulin Ratio 1.5 (1.1-1.8); Alkaline Phosphatase 73 U/L (38-126); Aspartate Amino Transferase 22 U/L (14-36); Bilirubin,Total 0.4 mg/dl (0.2-1.3); Calcium 9.4 mg/dl (8.4-10.2); Carbon Dioxide 31 mmol/L (22.0-30.0); Globulin 2.7 g/dL (1.3-3.2); Glucose 116 mg/dl (74-100); Total Protein,Serum 6.7 g/dl (6.3-8.2)
--- NOTE | 2019-11-14 12:04 | CT_ITS ---
PROCEDURE: CT HEAD/BRAIN WO CON CLINICAL INDICATION: vertigo COMPARISON: HEADWO CT head/brain wo con from 12/21/2017 TECHNIQUE: Axial images obtained. All CT scans at the facility use one or more dose reduction, viz: automated exposure control, ma/kV adjustment per patient size (including targeted exams where dose is matched to indication, i.e. head), or iterative reconstruction technique. FINDINGS: Vague low-density changes are present within the left cerebellar hemisphere. While some of this could be related to beam hardening artifact, underlying infarction is a consideration. No evidence of acute intracranial hemorrhage. No midline shift. No mastoid effusion or sinus air-fluid level. IMPRESSION: Nonspecific low-density changes in the left cerebellar hemisphere. Cannot exclude underlying cerebellar infarction. Consider MRI without and with enhancement for more thorough evaluation. Dr. Clemente was notified of this finding 11/14/2019 at 12:40 p.m. Dictated by: Juan Rosenberg MD 11/14/2019 12:50 Electronically signed by Juan Rosenberg MD in [place] 11/14/2019 12:50
[2019-11-14 12:08] LABS: NT Pro Brain Natriuretic Pep. 258 pg/mL (0-125)
[2019-11-14 12:14] LABS: Troponin I < 0.01 ng/ml (0.00-0.034)
[2019-11-14 12:23] LABS: Microscopic, Urine URINE MICROSCOPIC (MICROSCOPIC)
[2019-11-14 12:28] LABS: Appearance,Urine CLEAR (Clear); Bilirubin,Urine Negative (Negative); Blood, Urine Negative (Negative); Color,Urine YELLOW (Yellow); Glucose,Urine (UA) Negative (Negative); Ketones,Urine Negative (Negative); Leukocyte Esterase,Urine 1+ (Negative); Nitrate,Urine Negative (Negative); Protein,Urine Negative (Negative); Urobilinogen,Urine 0.2 EU/dl (0.2)
--- NOTE | 2019-11-14 12:49 | MR_ITS ---
PROCEDURE: MR HEAD/BRAIN WO CON CLINICAL INDICATION: vertigo, possible cerebellar infarct on CT COMPARISON: No exams were available for comparison TECHNIQUE: Routine multiplanar multi echo sequences are performed without gadolinium enhancement. FINDINGS: No midline shift, mass effect, intracranial hemorrhage, or hydrocephalus is evident. No evidence of acute infarction. Specifically, there is no evidence cerebellar infarction. The low-density changes noted on the CT scan likely related to beam hardening artifact the petrous bone. There are few scattered nonspecific periventricular and subcortical T2 white matter hyperintensities which may be due to ischemic gliotic changes from microvascular disease. The cerebellopontine angles, cerebellum, and brainstem are unremarkable. No mastoid effusion or sinus air-fluid level. Craniocervical junction has an unremarkable appearance. The pituitary, optic chiasm, and corpus callosum are unremarkable. IMPRESSION: No acute intracranial findings. No evidence of cerebellar infarction Dictated by: Juan Rosenberg MD 11/14/2019 16:30 Electronically signed by Juan Rosenberg MD in [place] 11/14/2019 16:30
[2019-11-14 13:30] LABS: Bacteria,Urine 1+ /lpf; RBC,Urine Occasional #/hpf (0-3)
--- NOTE | 2019-11-14 14:08 | PC.NURSE ---
Notified MRI that pt has order fr MRI of the brain, stated they would not be available until 1600, MD notified and notified radiologist
[2019-11-14 17:05] VITALS: BP 124/86; PULSE 76; RESP 18; TEMP 36.6; O2SAT 98
[2019-11-14 17:38] LABS: Troponin I < 0.01 ng/ml (0.00-0.034)
== END 2019-11-14 17:05 | disposition home or self-care (01) ==
PROVIDERS: Emergency Provider Emergency Medicine
DX: R42 Dizziness and giddiness (principal); J44.9 Chronic obstructive pulmonary disease, unspecified; K21.9 Gastro-esophageal reflux disease without esophagitis; E78.5 Hyperlipidemia, unspecified; I10 Essential (primary) hypertension; Z87.891 Personal history of nicotine dependence; Z90.79 Acquired absence of other genital organ(s); Z79.899 Other long term (current) drug therapy; Z88.0 Allergy status to penicillin; Z88.8 Allergy status to other drugs, medicaments and biological substances
CPT/HCPCS: 36415; 70450; 70551; 71046; 80053; 81001; 83880; 84484; 85025; 87086; 93005; 96365; 96375; 99283; J2405

== ENCOUNTER → 2020-01-09 13:09 | Outpatient (CLI) | payer MEDICAID, SELFPAY ==
[2020-01-09 15:39] LABS: Chloride 103 mmol/L (98-107); Potassium 4.6 mmoL/L (3.5-5.1); Sodium 136 mmol/L (136-145)
[2020-01-09 15:41] LABS: Alanine Aminotransferase 18 U/L (12-78); Alkaline Phosphatase 91 U/L (38-126); Aspartate Amino Transferase 20 U/L (14-36); Bilirubin,Total 0.6 mg/dl (0.2-1.3); Blood Urea Nitrogen 23 mg/dl (7-17); Estimated Glomerular Filt Rate 57 ml/min (>60); GFR (African American) 69 ML/MIN (>60)
[2020-01-09 15:42] LABS: Albumin Level 3.9 g/dl (3.5-5.0); Albumin/Globulin Ratio 1.4 (1.1-1.8); Anion Gap 6.6 mEq/L (5-15); Basophils % 0.4 % (0.1-2.0); Calcium 9.1 mg/dl (8.4-10.2); Carbon Dioxide 31 mmol/L (22.0-30.0); Chol/HDL Ratio 2.1 (1-3.5); Cholesterol 145 mg/dl (140-200); Eosinophils # 0.1 K/mm3 (0.0-0.4); Eosinophils % 2.2 % (0.1-12.0); Globulin 2.8 g/dL (1.3-3.2); Glucose 92 mg/dl (74-100); HDL Cholesterol 70 mg/dl (40-60); Hematocrit 43.5 % (37.0-47.0); Hemoglobin 14.4 g/dL (12.2-16.2); Lymphocytes # 1.8 K/mm3 (0.7-4.5); Lymphocytes % 29.8 % (10-50); Mean Corpuscular Hemoglobin 30.2 pg (27.0-31.2); Mean Corpuscular Volume 91.4 fl (81-99); Mean Platelet Volume 9.1 fl (7.4-10.4); Monocytes # 0.4 K/mm3 (0.1-1.0); Monocytes % 5.8 % (1.7-9.3); Neutrophils # 3.7 K/mm3 (1.8-7.8); Neutrophils % 61.8 % (37.0-80.0); Platelet Count 223 K/mm3 (142-424); Red Blood Count 4.77 M/mm3 (4.20-5.40); Red Cell Distribution Width 12.7 % (11.5-17.5); Total Protein,Serum 6.7 g/dl (6.3-8.2); Triglycerides 80 mg/dl (30-150); VLDL Cholesterol 16 mg/dL (0-40); White Blood Count 5.9 K/mm3 (4.8-10.8)
[2020-01-09 15:53] LABS: Direct LDL Cholesterol 75.49 mg/dL (100-129)
[2020-01-09 16:00] LABS: T4 (Thyroxine) 9.6 ug/dl (5.53-11.0)
[2020-01-09 16:13] LABS: Thyroid Stimulating Hormone 0.08 uIU/mL (0.465-4.68)
== END ==
PROVIDERS: Visit Provider Physician Assistant
DX: Z01.89 Encounter for other specified special examinations (principal); E55.9 Vitamin D deficiency, unspecified; E78.5 Hyperlipidemia, unspecified
CPT/HCPCS: 80053; 80061; 82652; 84436; 84443; 85025

== ENCOUNTER → 2020-01-23 08:34 | Outpatient (CLI) | payer MEDICAID, SELFPAY ==
[2020-01-23 10:58] LABS: Anion Gap 8.2 mEq/L (5-15); Blood Urea Nitrogen 23 mg/dl (7-17); Calcium 9.2 mg/dl (8.4-10.2); Carbon Dioxide 27 mmol/L (22.0-30.0); Chloride 105 mmol/L (98-107); Estimated Glomerular Filt Rate 64 ml/min (>60); GFR (African American) 78 ML/MIN (>60); Glucose 96 mg/dl (74-100); Potassium 4.2 mmoL/L (3.5-5.1); Sodium 136 mmol/L (136-145)
[2020-01-23 11:30] LABS: Thyroid Stimulating Hormone 0.12 uIU/mL (0.465-4.68)
== END ==
PROVIDERS: Visit Provider Physician Assistant
DX: Z01.89 Encounter for other specified special examinations (principal); R79.89 Other specified abnormal findings of blood chemistry
CPT/HCPCS: 36415; 80048; 84443

== ENCOUNTER 2020-02-02 10:00 | Outpatient (RCR) | payer MEDICAID, SELFPAY ==
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
== END 2020-02-02 10:05 | disposition home or self-care (01) ==
LOC: PT 10:00
PROVIDERS: PCP Emergency Medicine; Visit Provider Specialist
DX: M47.27 Other spondylosis with radiculopathy, lumbosacral region (principal)
CPT/HCPCS: 97010; 97012; 97014; 97035; 97110; 97163; G0283

== ENCOUNTER → 2020-02-06 09:46 | Outpatient (CLI) | payer MEDICAID, SELFPAY ==
[2020-02-06 11:29] LABS: Thyroid Stimulating Hormone 1.53 uIU/mL (0.465-4.68)
== END ==
PROVIDERS: Visit Provider Physician Assistant
DX: R79.89 Other specified abnormal findings of blood chemistry (principal)
CPT/HCPCS: 36415; 84443

== ENCOUNTER 2020-03-27 14:00 | Outpatient (RCR) | payer MEDICAID, SELFPAY | END 2020-03-27 14:05 | disposition home or self-care (01) | LOC: PT 14:00 | PROVIDERS: PCP Physician Assistant; Visit Provider Physical Medicine & Rehabilitation | DX: M50.30 Other cervical disc degeneration, unspecified cervical region (principal) | CPT/HCPCS: 97110; 97113; 97163 ==

== ENCOUNTER 2020-07-08 11:30 | Emergency (ER) | payer MEDICAID, SELFPAY ==
[2020-07-08 11:30] VITALS: BP 135/79; PULSE 78; RESP 18; TEMP 36.8; O2SAT 94; BMI 32.4
--- NOTE | 2020-07-08 11:53 | XR_ITS ---
PROCEDURE: XR CHEST 2V CLINICAL HISTORY: cough Cough dry cough and shortness of air COMPARISON: CR [id number] XR chest portable from 03/21/2018 CR XR CHEST 2V from 11/14/2019 FINDINGS: The cardiomediastinal silhouette and pulmonary vascularity are within normal limits. Increased density is present in the left lower lobe probably related to pericardial fat pad having a similar appearance on 2 previous studies. The remaining lungs are clear. No acute bony abnormalities. IMPRESSION: No acute findings. Dictated by: Juan Rosenberg MD 07/08/2020 14:17 Juan Rosenberg MD in [place] 07/08/2020 14:17
[2020-07-08 12:27] LABS: Basophils % 0.6 % (0.1-2.0); Eosinophils # 0.1 K/mm3 (0.0-0.4); Eosinophils % 2.6 % (0.1-12.0); Hemoglobin 14.9 g/dL (12.2-16.2); Lymphocytes # 1.5 K/mm3 (0.7-4.5); Lymphocytes % 28.5 % (10-50); Mean Corpuscular HGB Conc 32.4 g/dL (31.8-35.4); Mean Corpuscular Hemoglobin 29.9 pg (27.0-31.2); Mean Corpuscular Volume 92.5 fl (81-99); Monocytes # 0.3 K/mm3 (0.1-1.0); Monocytes % 5.1 % (1.7-9.3); Neutrophils # 3.4 K/mm3 (1.8-7.8); Neutrophils % 63.1 % (37.0-80.0); Platelet Count 218 K/mm3 (142-424); Red Blood Count 4.97 M/mm3 (4.20-5.40); Red Cell Distribution Width 13.4 % (11.5-17.5); White Blood Count 5.4 K/mm3 (4.8-10.8)
[2020-07-08 12:30] LABS: Chloride 103 mmol/L (98-107); Potassium 4.2 mmoL/L (3.5-5.1); Sodium 137 mmol/L (136-145)
[2020-07-08 12:33] LABS: Alanine Aminotransferase 24 U/L (12-78); Albumin/Globulin Ratio 1.4 (1.1-1.8); Alkaline Phosphatase 98 U/L (38-126); Anion Gap 9.2 mEq/L (5-15); Aspartate Amino Transferase 27 U/L (14-36); Bilirubin,Total 0.5 mg/dl (0.2-1.3); Blood Urea Nitrogen 19 mg/dl (7-17); Calcium 9.5 mg/dl (8.4-10.2); Carbon Dioxide 29 mmol/L (22.0-30.0); Creatinine Clearance Estimated 66 mL/min (50-200); Estimated Glomerular Filt Rate 46 ml/min (>60); GFR (African American) 56 ML/MIN (>60); Globulin 2.9 g/dL (1.3-3.2); Glucose 102 mg/dl (74-100); Total Protein,Serum 6.9 g/dl (6.3-8.2)
--- NOTE | 2020-07-08 13:31 | HMH.EDGENADL ---
ED Disposition Clinical Impression: Upper respiratory infection Qualifiers: URI type: unspecified viral URI Qualified Code(s): J06.9 - Acute upper respiratory infection, unspecified Acute bronchitis Qualifiers: Bronchitis organism: other organism Qualified Code(s): J20.8 - Acute bronchitis due to other specified organisms Disposition: Home, Self-Care Condition on Discharge: Good Instructions: DI for Acute Bronchitis Prescriptions: Azithromycin [Z-Moe 250mg Tab*] 250 mg PO UD DOSE PK #6 tab Transmission Status: Pending to [facility] Referrals: Bhumika White PA [Primary Care Provider] - - Critical Care Critical Care Time: No Attestation: On 07/08/20, the high probability of a clinically significant, sudden or life threatening deterioration of the following system(s) required my full and direct attention, intervention and personal management. The time I documented below is in addition to time spent performing reported procedures but includes the following listed in this critical care notation. Medical Decision Making - Medical Records Medical records reviewed: Yes: I reviewed the patient's medical records. - Roland Inquiry Pt receiving controlled substance: No Vital Signs: 07/08/20 11:30 Temperature 98.3 F Temperature Source Oral Pulse Rate [Left Radial] 78 Respiratory Rate 18 Blood Pressure [Right Arm] 135/79 Blood Pressure Mean [Right Arm] 97 Blood Pressure Source [Right Arm] Automatic Cuff Blood Pressure Position [Right Arm] Sitting 02 Sat by Pulse Oximetry 94 L Oxygen Delivery Method Room Air - Lab Data Lab Results 07/08/20 12:10: WBC 5.4, RBC 4.97, Hgb 14.9, Hct 46.0, MCV 92.5, MCH 29.9, MCHC 32.4, RDW 13.4, Plt Count 218, MPV 7.0 L, Neut % (Auto) 63.1, Lymph % (Auto) 28.5, [place] % (Auto) 5.1, Eos % (Auto) 2.6, Baso % (Auto) 0.6, Neut # (Auto) 3.4, Lymph # (Auto) 1.5, [place] # (Auto) 0.3, Eos # (Auto) 0.1, Baso # (Auto) 0.0 07/08/20 12:10: Sodium 137, Potassium 4.2, Chloride 103, Carbon Dioxide 29, Anion Gap 9.2, BUN 19 H, Creatinine 1.20 H, Estimated Creat Clear 66, Estimated GFR 46 L, Est GFR ( Amer) 56 L, Glucose 102 H, Calcium 9.5, Total Bilirubin 0.5, AST 27, ALT 24, Alkaline Phosphatase 98, Total Protein 6.9, Albumin 4.0, Globulin 2.9, Albumin/Globulin Ratio 1.4 Result diagrams: 07/08/20 12:10 07/08/20 12:10 Orders (Tests/Meds): ED MEDICATIONS Discontinued Medications Generic Name Dose Route Start Last Admin Trade Name Freq PRN Reason Stop Dose Admin Acetaminophen 1,000 mg 07/08/20 13:35 07/08/20 13:41 Acetaminophen 500mg Tab PO 07/08/20 13:36 1,000 mg ONCE ONE Administration Sodium Chloride 1,000 mls @ 999 mls/hr 07/08/20 13:15 07/08/20 13:41 Sod Chlor 0.9% 1000ml Bag IV 07/08/20 14:15 Not Given .Q1H1M RIGO Lidocaine HCl 15 ml 07/08/20 13:13 07/08/20 13:33 Lidocaine 2% Viscous Belkys 15ml Udc PO 07/08/20 13:14 15 ml ONCE ONE Administration ORDERS Category Date Time Status XR chest 2V Stat Exams 07/08/20 11:53 Taken Covid-19 Nasal PCR ([facility]) Routine Lab 07/08/20 13:13 Ordered - Radiology Data #1 Image(s): Chest Image Reviewed: Yes I reviewed the patient's radiology results, Yes I reviewed the patient's radiology image Preliminary Findings: Normal/NAD - Reevaluation(s) Time: 14:13 Reevaluation #1: On reevaluation, patient is feeling better. There is no significant desaturations. We did exert the patient for any signs of respiratory distress, and she was doing just fine. We will obtain coronavirus swabs. Patient is isolate until they are symptom-free for 24 hours. Given strict return precautions. Verbalized understanding. Medical Decision Narrative: 59-year-old female presented to the emergency department with URI type symptoms. Patient afebrile. No respiratory distress. Work-up initiated. General Adult HPI - General Chief complaint: Upper Respiratory Infection Stated complaint: Oxge
[2020-07-08 14:23] VITALS: BP 105/87; PULSE 87; RESP 17; TEMP 36.8; O2SAT 98
[2020-07-10 13:59] LABS: Covid-19 Nasal PCR Sendout Lex NOT DETECTED
== END 2020-07-08 14:24 | disposition home or self-care (01) ==
PROVIDERS: Emergency Provider Emergency Medicine; PCP Physician Assistant
DX: Z20.828 Contact with and (suspected) exposure to other viral communicable diseases (principal); J20.8 Acute bronchitis due to other specified organisms; E11.9 Type 2 diabetes mellitus without complications; K21.9 Gastro-esophageal reflux disease without esophagitis; I10 Essential (primary) hypertension; G43.709 Chronic migraine without aura, not intractable, without status migrainosus; F41.8 Other specified anxiety disorders; Z88.0 Allergy status to penicillin; Z88.5 Allergy status to narcotic agent; Z88.8 Allergy status to other drugs, medicaments and biological substances; Z79.899 Other long term (current) drug therapy
CPT/HCPCS: 71046; 80053; 85025; 99283; U0004

== ENCOUNTER → 2020-08-08 15:39 | Outpatient (CLI) | payer MEDICAID, SELFPAY ==
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
== END ==
PROVIDERS: PCP Physician Assistant; Visit Provider Physician Assistant
DX: M54.5 Low back pain (principal); R20.0 Anesthesia of skin; R20.2 Paresthesia of skin
CPT/HCPCS: 72148; 76376

== ENCOUNTER → 2020-08-14 12:32 | Outpatient (CLI) | payer MEDICAID, SELFPAY ==
[2020-08-14 13:40] VITALS: PULSE 66; PULSE 70
== END ==
PROVIDERS: PCP Physician Assistant; Visit Provider Physician Assistant
DX: R09.02 Hypoxemia (principal)
CPT/HCPCS: 94060; 94640; 94727; 94729

== ENCOUNTER → 2020-10-22 11:01 | Outpatient (CLI) | payer MEDICAID, SELFPAY ==
--- NOTE | 2020-10-22 11:05 | XR_ITS ---
PROCEDURE: XR FOOT WT BEARING LT 3V CLINICAL INDICATION: pain Pain in the foot COMPARISON: CR FTR3 FOOT-RT-3 VIEWS from 01/21/2016 CR FTL3 FOOT-LT-3 VIEWS from 01/21/2016 CR XR FOOT WT BEARING RT 3V from 06/13/2019 CR XR FOOT WT BEARING LT 3V from 06/13/2019 FINDINGS: No fracture or dislocation. No lytic or blastic change. There is normal mineralization. The joint spaces are well-preserved. No significant degenerative/arthritic changes. No erosive changes evident. Other findings:None. IMPRESSION: No acute findings. Dictated by: Juan Rosenberg MD 10/22/2020 18:54 Juan Rosenberg MD in [place] 10/22/2020 18:54
== END ==
PROVIDERS: PCP Physician Assistant; Visit Provider Nurse Practitioner
DX: M79.672 Pain in left foot (principal)
CPT/HCPCS: 73630

== ENCOUNTER → 2020-11-06 14:09 | Outpatient (CLI) | payer MEDICAID, SELFPAY ==
[2020-11-06 14:47] LABS: Blood Urea Nitrogen 18 mg/dl (7-17); Estimated Glomerular Filt Rate 73 ml/min (>60); GFR (African American) 89 ML/MIN (>60)
== END ==
PROVIDERS: Visit Provider Nurse Practitioner
DX: M72.2 Plantar fascial fibromatosis (principal)
CPT/HCPCS: 36415; 82565; 84520

== ENCOUNTER → 2020-11-07 12:30 | Outpatient (CLI) | payer MEDICAID, SELFPAY ==
--- NOTE | 2020-11-07 12:30 | MR_ITS ---
PROCEDURE: MR FOOT LT WO/W CON CLINICAL INDICATION: evaluate for plantar fascia tear Plantar pain. Pt is immobile and if she walks too much, it flairs up. 17ml prohance given. COMPARISON: MR LEAJW/OLT MRI-LOW EXT ANY JOINT W/O-LT from 03/17/2016 CR XR ANKLE WT BEARING RT MIN 3V from 06/13/2019 CR XR FOOT WT BEARING LT 3V from 10/22/2020 TECHNIQUE: Routine multiplanar multi echo sequences are performed without gadolinium enhancement. FINDINGS: Bones: Unremarkable Ligaments: Unremarkable Tendons: Unremarkable Joints: Small amount fluid is present along the posterior talocalcaneal region and at the talonavicular area as well as the 1st through 5th metatarsophalangeal junction. Artifact obscures adequate evaluation of the plantar fascia on the sagittal T2 weighted images. Plantar fascia has an unremarkable appearance on the T1 weighted images. No evidence of fascial tear. No obvious edema around the plantar fascia. IMPRESSION: 1. No evidence of plantar fascial tear. 2. Small joint effusions at the metatarsophalangeal junction suggesting synovitis. Small amount of fluid posterior to the talus suggesting bursitis. Dictated by: Juan Rosenberg MD 11/10/2020 13:33 Juan Rosenberg MD in [place] 11/10/2020 13:33
== END ==
PROVIDERS: PCP Physician Assistant; Visit Provider Podiatrist
DX: M72.2 Plantar fascial fibromatosis (principal); M79.672 Pain in left foot
CPT/HCPCS: 73720; A9576

== ENCOUNTER → 2020-12-23 13:58 | Outpatient (CLI) | payer MEDICAID, SELFPAY ==
[2020-12-23 14:15] LABS: Alanine Aminotransferase 22 U/L (12-78); Albumin Level 3.6 g/dl (3.5-5.0); Albumin/Globulin Ratio 1.6 (1.1-1.8); Alkaline Phosphatase 75 U/L (38-126); Anion Gap 6.3 mEq/L (5-15); Aspartate Amino Transferase 22 U/L (14-36); Bilirubin,Total 0.6 mg/dl (0.2-1.3); Blood Urea Nitrogen 20 mg/dl (7-17); Calcium 8.8 mg/dl (8.4-10.2); Carbon Dioxide 31 mmol/L (22.0-30.0); Chloride 106 mmol/L (98-107); Chol/HDL Ratio 2.7 (1-3.5); Cholesterol 135 mg/dl (140-200); Estimated Glomerular Filt Rate 64 ml/min (>60); GFR (African American) 77 ML/MIN (>60); Globulin 2.3 g/dL (1.3-3.2); Glucose 94 mg/dl (74-100); HDL Cholesterol 50 mg/dl (40-60); Potassium 4.3 mmoL/L (3.5-5.1); Sodium 139 mmol/L (136-145); Total Protein,Serum 5.9 g/dl (6.3-8.2); Triglycerides 95 mg/dl (30-150); VLDL Cholesterol 19 mg/dL (0-40)
[2020-12-23 14:26] LABS: Direct LDL Cholesterol 62.97 mg/dL (100-129)
[2020-12-23 14:27] LABS: Basophils % 0.3 % (0.1-2.0); Eosinophils # 0.2 K/mm3 (0.0-0.4); Eosinophils % 2.5 % (0.1-12.0); Lymphocytes # 1.2 K/mm3 (0.7-4.5); Lymphocytes % 17.6 % (10-50); Mean Corpuscular HGB Conc 32.4 g/dL (31.8-35.4); Mean Corpuscular Hemoglobin 29.7 pg (27.0-31.2); Mean Corpuscular Volume 91.7 fl (81-99); Mean Platelet Volume 8.8 fl (7.4-10.4); Monocytes # 0.4 K/mm3 (0.1-1.0); Monocytes % 6.3 % (1.7-9.3); Neutrophils # 5.1 K/mm3 (1.8-7.8); Neutrophils % 73.3 % (37.0-80.0); Platelet Count 194 K/mm3 (142-424); Red Blood Count 4.37 M/mm3 (4.20-5.40); Red Cell Distribution Width 13.3 % (11.5-17.5)
[2020-12-23 14:32] LABS: T4 (Thyroxine) 8.9 ug/dl (5.53-11.0)
[2020-12-23 14:46] LABS: Thyroid Stimulating Hormone 1.07 uIU/mL (0.465-4.68)
[2020-12-23 14:50] LABS: Hemoglobin A1C 5.2 % (4.0-6.0)
== END ==
PROVIDERS: Visit Provider Physician Assistant
DX: E11.9 Type 2 diabetes mellitus without complications (principal); I10 Essential (primary) hypertension; E55.9 Vitamin D deficiency, unspecified; E66.9 Obesity, unspecified
CPT/HCPCS: 80053; 80061; 82306; 83036; 84436; 84443; 85025

== ENCOUNTER → 2020-12-26 15:52 | Outpatient (CLI) | payer MEDICAID, SELFPAY ==
--- NOTE | 2020-12-26 15:52 | MM_ITS ---
PROCEDURE INFORMATION: Exam: MG Screening 3D Mammography Exam date and time: 12/26/2020 3:52 PM Age: 60 years old Clinical indication: Encounter for screening mammogram for malignant neoplasm of breast TECHNIQUE: Imaging protocol: Screening tomosynthesis and 2D mammography including computer-aided detection (CAD) when performed. COMPARISON: 1. MG SCBI MM Dig screening mamm BI w/CAD 11/24/2018 10:31 AM 2. MG SCBI MM Dig screening mamm BI w/CAD 10/29/2017 9:47 AM FINDINGS: MAMMOGRAPHY: Breast composition: The breast tissue is composed of scattered areas of fibroglandular density. Mass: None. Architectural distortion: None. Calcifications: No suspicious calcifications. Asymmetric density: None. Skin thickening: None. Axillary adenopathy: None. IMPRESSION: No mammographic evidence of malignancy. Annual screening is recommended unless otherwise clinically indicated. ASSESSMENT: BI-RADS Category 1: Negative
== END ==
PROVIDERS: PCP Physician Assistant; Visit Provider Physician Assistant
DX: Z12.31 Encounter for screening mammogram for malignant neoplasm of breast (principal)
CPT/HCPCS: 77063; 77067

== ENCOUNTER 2020-12-31 11:00 | Outpatient (RCR) | payer MEDICAID, SELFPAY ==
--- NOTE | 2020-11-19 13:46 | HMH.PTOPEV ---
PT Outpatient Evaluation Rehab PT Outpatient Evaluation Start: 11/19/20 13:36 Freq: Status: Active Protocol: Document 11/19/20 13:36 MARCY (Rec: 11/19/20 13:46 MARCY [id number]) Electronically Signed By Bernardo Ly, PT 11/19/20 13:36 Outpatient Therapy Subjective History Subjective History Pt reports h/o chronic L foot/ heel pain with exacerbation over the last ~30 days. Pt reports severe L foot mid arch area pain, with tightness in 'heel cord that pulls up into the back of my leg'. Pt reports swelling and pain into heel, and achilles area, as well as toe 'cramping'. Pt reports local injection in heel on 11/18/20 has improved s /s. Chief Complaint Pain,Spasms,Stiff,Swelling Symptom Type Ache,Sharp,Dull Symptoms Relieved By Rest/Positioning Symptoms Aggravated By Standing,Walking Prior Functional Limitations Housework,Standing,Walking Current Functional Limitations Housework,Standing,Walking Symptom Description Constant but Variable Level of pain today (0-10) 6 Pain scale - at its best (0-10) 5 Pain scale - at its worst (0-10) 10 Ankle/Foot Eval Gait Observation General Gait Pattern Observation Antalgic Gait Palpation Tenderness left Ankle/Foot Palpation Findings Tenderness Ankle/Foot Palpation Overall Comment plantar fascia 3/4 ROM Ankle/Foot Dorsiflexion w/Knee Extended 0-10 Active Range Motion (degrees) Ankle/Foot Plantar Flexion Active Range 0-50 of Motion (degrees) Ankle/Foot Eversion Active Range of 0-10 Motion (degrees) Ankle/Foot Inversion Active Range of 0-25 Motion (degrees) Ankle/Foot ROM Limitations Pain MMT Ankle Dorsiflexion Strength Grade 5 Normal Ankle Plantarflexion Strength Grade 4 Good Foot Eversion Strength Grade 4 Good Foot Inversion Strength Grade 4 Good Outpatient Therapy Assessment Impairments Problems/Impairmments Palpation Tenderness,Impaired Range of Motion,Impaired Strength,Impaired Gait Pattern ,Impaired Walking,Impaired Standing,Impaired Household Care,Subjective C/O Pain, Impaired Self Care/Self Management Prognosis Rehab Potential Good Clinical Impression Consistent with Diagnosis Yes Short Term Goals Num
--- NOTE | 2020-12-17 11:03 | HMH.RHREAS ---
Rehab Reassessment Rehab OP Re-assessment Start: 12/17/20 10:46 Freq: Status: Active Protocol: Document 12/17/20 10:58 MARCY (Rec: 12/17/20 11:03 MARCY [id number]) Electronically Signed By Bernardo Ly, PT 12/17/20 10:58 Rehab Re-assessment Subjective Subjective PT REPORTS 0-4/10 L FOOT/HEEL PAIN ON VAS, AND FEELS 'A LOT BETTER' SINCE I EVAL Objective Objective Notes AROM: L ANKLE DF 0-10, PF 0-55 , INV 0-30, EVR 0-15 MMT: L ANKLE DF 5/5, PF 4-4+/5 , INV 4/5, EVR 4/5 TTP: L PLANTAR FASICA 1-2/4 Assessment Progress Assessment Progressing as Expected Assessment Notes PT W/IMPROVED ROM, STRENGTH, AND TTP Patient goals met STG'S 02/06 LTG'S 09/10 Goals Not Met STG'S 08/09, LTG'S 02/07 Plan Plan PT TO CONT. W/SKILLED P.T. TO MAKE FURTHER IMPROVEMENTS IN L ANKLE/FOOT AROM, STRENGTH, AND TTP TO ALLOW FOR OPTIMAL FUNCTION Frequency of Therapy 2-3X/WK Duration of therapy 4-6WKS Time and Billing Re-Eval Time 15 Re-Eval Billing Units 1 PHYSICIAN CERTIFICATION: I certify the specified therapy services for Gardenia Morales are required, authorized, and reviewed every 30 days.
== END 2020-12-31 11:05 | disposition home or self-care (01) ==
LOC: PT 11:00
PROVIDERS: PCP Physician Assistant; Visit Provider Nurse Practitioner
DX: M72.2 Plantar fascial fibromatosis (principal); M79.672 Pain in left foot
CPT/HCPCS: 97014; 97033; 97035; 97110; 97140; 97163; 97164; 97760; G0283

== ENCOUNTER → 2021-03-11 15:17 | Outpatient (CLI) | payer MEDICAID, SELFPAY ==
--- NOTE | 2021-03-11 15:17 | CT_ITS ---
PROCEDURE: CT LUNG SCREENING CLINICAL INDICATION: lung cancer screening Thirty pack year smoking history COMPARISON: CT LUNGSCREEN CT lung screening from 01/16/2019 MG MM DIG SCREENING MAMM BI W/CAD from 12/26/2020 TECHNIQUE: The exam was performed on a GE Light Speed [address] scanner using 2.90 mGy CTDI. A low dose helical CT CHEST was performed on a multi-detector scanner. All CT scans at the facility use one or more dose reduction, viz: automated exposure control, ma/kV adjustment per patient size (including targeted exams where dose is matched to indication, i.e. head), or iterative reconstruction technique. The LDCT was performed in a facility that meets the criteria for the screening program. Data regarding this exam was submitted to ACR which is an approved registry. The order for this exam indicates that it came as a result of a lung cancer screening counseling shard decision-making visit that included all the elements required of such a visit including smoking cessation. The radiologist interpreting this exam meets the [facility] criteria for the LDCT lung cancer screening program. The exam is reported using the Lung-RADS classification scale and reported to the ACR registry. NOTE: This study was performed for the specific purposes of lung cancer screening and is not an alternative to diagnostic chest CT. RADIATION DOSE: CTDI vol(CT dose Index-volume) = 2.90mG DLP (Dose Length Product) = 87.77 mGcm FINDINGS: Scarring in the lung bases. No suspicious pulmonary nodules. Old granulomatous disease. OTHER FINDINGS: No other pertinent findings evident. IMPRESSION: Lung-RADS Category 1 Negative Follow-up: Continue annual screening with LDCT in 12 months Dictated by: Juan Rosenberg MD 03/17/2021 06:43 Juan Rosenberg MD in [place] 03/17/2021 06:43
== END ==
PROVIDERS: PCP Physician Assistant; Visit Provider Internal Medicine Pulmonary Disease
DX: Z87.891 Personal history of nicotine dependence (principal); Z12.2 Encounter for screening for malignant neoplasm of respiratory organs
CPT/HCPCS: 71271

== ENCOUNTER → 2021-06-10 18:21 | Outpatient (CLI) | payer MEDICAID, SELFPAY ==
[2021-06-10 19:16] LABS: Basophils % 0.6 % (0.1-2.0); Eosinophils # 0.1 K/mm3 (0.0-0.4); Eosinophils % 1.3 % (0.1-12.0); Hematocrit 47.9 % (37.0-47.0); Lymphocytes # 1.4 K/mm3 (0.7-4.5); Lymphocytes % 23.3 % (10-50); Mean Corpuscular HGB Conc 31.3 g/dL (31.8-35.4); Mean Corpuscular Hemoglobin 30.4 pg (27.0-31.2); Mean Corpuscular Volume 96.8 fl (81-99); Mean Platelet Volume 9.4 fl (7.4-10.4); Monocytes # 0.4 K/mm3 (0.1-1.0); Monocytes % 7.2 % (1.7-9.3); Neutrophils # 3.9 K/mm3 (1.8-7.8); Neutrophils % 67.5 % (37.0-80.0); Platelet Count 266 K/mm3 (142-424); Red Blood Count 4.94 M/mm3 (4.20-5.40); Red Cell Distribution Width 13.5 % (11.5-17.5); White Blood Count 5.8 K/mm3 (4.8-10.8)
[2021-06-10 21:00] LABS: Alanine Aminotransferase 29 U/L (12-78); Albumin/Globulin Ratio 1.5 (1.1-1.8); Alkaline Phosphatase 92 U/L (38-126); Anion Gap 13.3 mEq/L (5-15); Aspartate Amino Transferase 27 U/L (14-36); Bilirubin,Total 0.5 mg/dl (0.2-1.3); Blood Urea Nitrogen 18 mg/dl (7-17); Calcium 9.5 mg/dl (8.4-10.2); Carbon Dioxide 28 mmol/L (22.0-30.0); Chloride 103 mmol/L (98-107); Estimated Glomerular Filt Rate 73 ml/min (>60); GFR (African American) 89 ML/MIN (>60); Globulin 2.7 g/dL (1.3-3.2); Glucose 71 mg/dl (74-100); Potassium 4.3 mmoL/L (3.5-5.1); Sodium 140 mmol/L (136-145); Total Protein,Serum 6.7 g/dl (6.3-8.2)
== END ==
PROVIDERS: Visit Provider Physician Assistant
DX: Z01.818 Encounter for other preprocedural examination (principal)
CPT/HCPCS: 80053; 85025

== ENCOUNTER 2021-06-19 09:21 | Emergency (ER) | payer MEDICAID, SELFPAY ==
[2021-06-19 09:30] VITALS: BP 134/82; PULSE 80; RESP 16; TEMP 36.6; O2SAT 93; BMI 35.9
--- NOTE | 2021-06-19 09:31 | HMH.EDGENADL ---
ED Disposition Clinical Impression: Right hand pain, Skin abnormality Disposition: Home, Self-Care Condition on Discharge: Good Additional Instructions: You have been evaluated for pain and swelling to the dorsum of the right hand. This is likely due to IV access. Please wrap your hand and elevate it when you are at home resting. Skin discoloration is a stain, likely from your clothing. Follow-up with your pain specialist in your primary care doctor. Return to the emergency department for any new or worsening symptoms or other concerns Referrals: Bhumika White PA [Primary Care Provider] - Time of Disposition: 09:39 - Critical Care Critical Care Time: No Attestation: On , the high probability of a clinically significant, sudden or life threatening deterioration of the following system(s) required my full and direct attention, intervention and personal management. The time I documented below is in addition to time spent performing reported procedures but includes the following listed in this critical care notation. Medical Decision Making - Medical Records Medical records reviewed: Yes: I reviewed the patient's medical records. - Roland Inquiry Pt receiving controlled substance: No Medical Decision Narrative: In summary this is a 60-year-old female with recent spinal stimulator procedure presenting to the emergency department with bluish discoloration of her hands, pain to the dorsum of the right hand. She is clinically stable on arrival. Vital signs within normal limits. The discoloration is quite atypical. It is dark blue of the palms and dorsal aspect. Discoloration involves the nails. Alcohol prep was able to easily remove the bluish stain. On further questioning, she was wearing a new dark blue nightgown last night. Believe that the pain in the dorsum of her hand is due to IV access, cannot exclude an extravasation event. I significantly doubt DVT of the right upper extremity, given that IV was in the hand. Patient counseled on compression and elevation. Commended she follow-up with her pain specialist in [place]. Given return precautions. Stable for discharge. General Adult HPI - General Stated complaint: back stent 1116, right hand to elbow swelling Time Seen by Provider: 06/19/21 09:31 Mode of Arrival: Ambulatory Source of Information: Patient Limitations: No Limitations - History of Present Illness HPI narrative: 60-year-old female presenting to the emergency department with pain and discoloration of her hands. When she woke up this morning she noticed that the palms of her hand were both bluish in color. Bluish discoloration on the backs of the hands as well. Her right hand seemed more swollen than the left. Swelling extended to her wrist. Tenderness palpation on the dorsal aspect of the hand. She had a spinal stimulator placed on 06/17/2021 at the [facility]. She had IV in the dorsum of the right hand. She says that it required multiple IV attempts. She is unsure if there was an extravasation event. No IVs or other catheters in the upper arm. No history of DVT or PE. She does not think the discoloration is stain from clothing, sheet, towels. back pain is improving. no numbness or weakness in her arms or legs. No fevers, chills, nausea, vomiting. - Related Data Home Medications Medication Instructions Recorded Confirmed gabapentin 300 mg capsule 300 mg PO QID cap 11/20/19 06/10/21 methocarbamol 750 mg tablet 750 mg PO BID tab 11/20/19 06/10/21 blood sugar diagnostic See Rx Instructions .ROUTE 08/22/20 06/10/21 .MEDSUPPLY #10 each urea 40 % topical cream g TOPICAL 10/14/20 06/10/21 ascorbic acid (vitamin C) 500 mg 500 mg PO BID cap 12/23/20 06/10/21 capsule glucosamine sulfate 2KCl 1,000 mg 1,000 mg PO BID 12/23/20 06/10/21 tablet diazepam 5 mg tablet 5 mg PO PRN tab 02/19/21 06/10/21 Previous Rx's Medication Instructions Recorded lanc
[2021-06-19 10:16] VITALS: BP 134/82; PULSE 80; RESP 16; TEMP 36.6; O2SAT 93
--- NOTE | 2021-06-19 10:34 | PC.NURSE ---
pt is awaiting ride home
== END 2021-06-19 11:05 | disposition home or self-care (01) ==
LOC: ER 09:43
PROVIDERS: Emergency Provider Emergency Medicine; PCP Physician Assistant
DX: L98.9 Disorder of the skin and subcutaneous tissue, unspecified (principal); M79.641 Pain in right hand; E11.9 Type 2 diabetes mellitus without complications; J44.9 Chronic obstructive pulmonary disease, unspecified; K21.9 Gastro-esophageal reflux disease without esophagitis; E78.5 Hyperlipidemia, unspecified; I10 Essential (primary) hypertension; Z87.891 Personal history of nicotine dependence; Z88.0 Allergy status to penicillin; Z88.1 Allergy status to other antibiotic agents; Z88.8 Allergy status to other drugs, medicaments and biological substances
CPT/HCPCS: 99281

== ENCOUNTER → 2021-07-02 12:01 | Outpatient (CLI) | payer MEDICAID, SELFPAY ==
--- NOTE | 2021-07-02 12:02 | CA_ITS ---
APPROVED REPORT Right Upper Extremity Venous Study for DVT. Spout Positioner: Nancy Haque RCS, RVS Indications Upper Extremity Pain: Right Right hand pain s/p 2weeks IV vascular injury with extravasation Vein Imaging IJV (R): Normal phasic flow is seen. Normal flow, augmentation and compression is seen. No evidence of Deep Vein Thrombosis. No abnormalities are demonstrated. SCV (R): Normal phasic flow is seen. Normal flow, augmentation and compression is seen. No evidence of Deep Vein Thrombosis. No abnormalities are demonstrated. Axillary (R): Normal phasic flow is seen. Normal flow, augmentation and compression is seen. No evidence of Deep Vein Thrombosis. No abnormalities are demonstrated. Brachial (R): Normal phasic flow is seen. Normal flow, augmentation and compression is seen. No evidence of Deep Vein Thrombosis. No abnormalities are demonstrated. Basilic (R): Normal phasic flow is seen. Normal flow, augmentation and compression is seen. No evidence of Deep Vein Thrombosis. No abnormalities are demonstrated. Cephalic (R): Normal phasic flow is seen. Normal flow, augmentation and compression is seen. No evidence of Deep Vein Thrombosis. No abnormalities are demonstrated. Radial (R): Normal phasic flow is seen. Normal flow, augmentation and compression is seen. No evidence of Deep Vein Thrombosis. No abnormalities are demonstrated. Ulnar (R): Normal phasic flow is seen. Normal flow, augmentation and compression is seen. No evidence of Deep Vein Thrombosis. No abnormalities are demonstrated. Findings Imaging reveals a widely patent Right Internal Jugular Vein, Deep Venous System and Superficial Venous System. Negative for DVT. Conclusion Imaging reveals a widely patent Right Internal Jugular Vein, Deep Venous System and Superficial Venous System. Negative for DVT. Electronically signed by : Juan Rosenberg MD 07/02/2021 17:50:51
== END ==
PROVIDERS: PCP Physician Assistant; Visit Provider Physician Assistant
DX: M79.601 Pain in right arm (principal); M79.89 Other specified soft tissue disorders
CPT/HCPCS: 93971

== ENCOUNTER → 2021-09-10 10:03 | Outpatient (CLI) | payer MEDICAID, SELFPAY ==
--- NOTE | 2021-09-10 10:06 | XR_ITS ---
FINAL REPORT CLINICAL HISTORY: right knee pain FINDINGS: RIGHT KNEE Four views demonstrate no acute fracture or dislocation. There is mild medial compartment degenerative change. No joint effusion is identified. No soft tissue abnormality is seen. IMPRESSION: Mild degenerative change. Reviewed, Interpreted and Dictated by Chace Camacho III, MD Transcribed by Kira Oh Authenticated by Chace Camacho III, MD on 09/10/2021 11:02:18 AM [facility]
== END ==
PROVIDERS: PCP Physician Assistant; Visit Provider Physician Assistant
DX: M25.561 Pain in right knee (principal)
CPT/HCPCS: 73564

== ENCOUNTER 2021-09-26 15:02 | Outpatient (RCR) | payer MEDICAID, SELFPAY | END 2021-09-26 16:00 | disposition home or self-care (01) | LOC: PT 15:02 | PROVIDERS: Visit Provider Orthopaedic Surgery | DX: M25.561 Pain in right knee (principal) | CPT/HCPCS: 97760 ==

== ENCOUNTER → 2021-10-14 09:12 | Outpatient (CLI) | payer MEDICAID, SELFPAY ==
--- NOTE | 2021-10-14 | CA_ITS ---
APPROVED REPORT EXAM: Comprehensive 2D, Doppler, and color-flow Echocardiogram Escalator Attendant: Giana Oglesby RVT Ht: 5 ft 3 in Wt: 184lbs BSA: 1.87 BP: 111/69 mmHg Indications: SOA,EX SMOKER,DM,HTN,HLD 2D Dimensions LVOT 2.02 cm (M/F) 1.5-2.5 LA Volume 28.20 mL LA Volume Index 15.16 mL/m2 (M/F) 16-34 M-Mode Dimensions RVDd 3.70 cm (0.9-2.6) LA Diam 3.34 cm (1.9-4.0) LVDd 4.55 cm (3.5-5.7) Ao Diam 3.32 cm (2.0-3.7) LVDs 3.27 cm (3.5-5.7) IVSd 1.36 cm (0.6-1.1) PWd 0.98 cm (0.6-1.1) EF (Teich) 54.50% FS 28.10% EDV (Teich) 94.90 mL ESV (Teich) 43.20 mL LV Diastology E Decel Time 190.00 (160-240 msec) E/A Ratio 1.2 MED E' 6.80 (< 7 cm/sec) E'/MED E' Ratio 11.24 (>14) LAT E' 8.20 (<10 cm/sec) E/LAT E' Ratio 9.32 (>14) Mitral Valve MV E Max Jay Jay. 76.00 (40-130 cm/s) MV A Velocity 65.00 (40-130 cm/s) E/A Ratio 1.18 MV Decel. Time 190.00 (160-240 ms) MV PHT 56.00 ms Pulmonary Valve PV Peak Velocity 72.00 (50-150 cm/s) Left Ventricle Left atrium is mildly enlarged, left ventricle is normal size, mild concentric left ventricular hypertrophy, visually estimated ejection fraction 55% with no regional wall motion abnormality, diastolic parameters are inconclusive. Right Ventricle Right atrium and right ventricle mildly enlarged with normal contractility. Aortic Valve Aortic valve is minimally thickened and fibrosed, there is no aortic stenosis or aortic insufficiency. Mitral Valve Mitral valve grossly normal, there is trace mitral regurgitation Tricuspid Valve Tricuspid valve is grossly normal, there is trace tricuspid regurgitation, tricuspid regurgitation jet velocity is inadequate for calculation of the right ventricular systolic pressure. Pulmonic Valve Pulmonic valve is poorly visualized. Great Vessels Aortic root is normal size. Inferior vena cava is poorly visualized. Pericardium No significant pericardial effusion noted. Conclusion 1. Mild biatrial normal, normal left ventricular size, mild concentric left ventricular hypertrophy, estimated ejection fraction 55% with no regional wall motion abnormality, diastolic parameters are inconclusive. 2. Mildly enlarged right ventricle with normal contractility. 3. Trace mitral and tricuspid regurgitation. 4. No significant pericardial effusion. 5. Inferior vena cava is poorly visualized. Electronically signed by : Jarrett Gibbons MD 10/14/2021 19:27:33
== END ==
PROVIDERS: PCP Physician Assistant; Visit Provider Nurse Practitioner Family
DX: R06.09 Other forms of dyspnea (principal)
CPT/HCPCS: 93306

== ENCOUNTER → 2021-10-17 09:25 | Outpatient (CLI) | payer MEDICAID, SELFPAY ==
--- NOTE | 2021-10-17 09:38 | FL_ITS ---
FINAL REPORT CLINICAL HISTORY: consptipation, N/V, h/o bowel surg in 2003 2.15 fluoro time FINDINGS: UPPER GI WITH SBFT UPPER GI EXAM HISTORY: Abdominal pain, nausea. PROCEDURE: The patient ingested barium. Effervescent crystals were also administered. Spot and overhead films were obtained. FINDINGS: The esophagus is normal. There is no hiatal hernia. There is moderate gastroesophageal reflux. Peristalsis is normal. The rugal fold pattern of the stomach is normal. The duodenal bulb is normal. 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 FLUOROSCOPY TIME: 2 minutes 45 seconds IMPRESSION: 1. Esophageal reflux. 2. Duodenal diverticulum. 3. Otherwise, unremarkable upper GI. SBFT: The electrical solderer film is normal. There is no evidence of obstruction. The mucosal fold pattern is normal. The terminal ilium is normal. IMPRESSION: Normal SBFT. Reviewed, Interpreted and Dictated by Chace Camacho III, MD Transcribed by SHANNAN Marie Authenticated by Chace Camacho III, MD on 10/17/2021 11:31:11 AM [facility]
== END ==
PROVIDERS: PCP Physician Assistant; Visit Provider Colon & Rectal Surgery
DX: R13.10 Dysphagia, unspecified (principal); J38.7 Other diseases of larynx; Z68.35 Body mass index [BMI] 35.0-35.9, adult
CPT/HCPCS: 74246; 74248

== ENCOUNTER 2021-12-16 08:00 | Outpatient (RCR) | payer MEDICAID, SELFPAY | END 2021-12-16 08:05 | disposition home or self-care (01) | LOC: PT 08:00 | PROVIDERS: PCP Physician Assistant; Visit Provider Psychiatry & Neurology Neurology | DX: M54.2 Cervicalgia (principal); M62.838 Other muscle spasm | CPT/HCPCS: 97010; 97014; 97035; 97110; 97140; 97163; G0283 ==

== ENCOUNTER 2022-01-29 10:00 | Outpatient (RCR) | payer MEDICAID, SELFPAY | END 2022-01-29 10:05 | disposition home or self-care (01) | LOC: PT 10:00 | PROVIDERS: PCP Physician Assistant; Visit Provider Student in an Organized Health Care Education/Training Program | DX: S06.5X0D Traumatic subdural hemorrhage without loss of consciousness, subsequent encounter (principal); T07.XXXA Unspecified multiple injuries, initial encounter | CPT/HCPCS: 97110; 97112; 97163 ==

== ENCOUNTER → 2022-03-23 15:14 | Outpatient (CLI) | payer MEDICAID, SELFPAY ==
--- NOTE | 2022-03-23 15:14 | CT_ITS ---
FINAL REPORT CLINICAL HISTORY: . former smoker, low dose lung screening. COMPARISON: March 11, 2021 FINDINGS: Low-Dose Chest CT Axial images were obtained from the lung apex to the mid abdomen by computed tomography. Low-dose protocol was utilized. CTDI vol (mGy): 2.90 DLP (mGy-cm): 96.38 There is no axillary adenopathy. There is no hilar or mediastinal adenopathy. The heart is proper size. There is no pericardial or pleural effusion. Limited images of the upper abdomen demonstrate fatty infiltration of the liver and postoperative changes from cholecystectomy. Lung window images demonstrate no suspicious infiltrate or nodule. There is scarring in the lung bases. IMPRESSION: Lung RADS category 1. Recommend 12 month follow-up low-dose chest CT. Reviewed, Interpreted and Dictated by Andi Parikh MD Transcribed by Airam Brandon Authenticated and [facility]
== END ==
PROVIDERS: PCP Physician Assistant; Visit Provider Internal Medicine Pulmonary Disease
DX: Z87.891 Personal history of nicotine dependence (principal); Z12.2 Encounter for screening for malignant neoplasm of respiratory organs
CPT/HCPCS: 71271

== ENCOUNTER 2022-03-24 10:00 | Outpatient (RCR) | payer MEDICAID, SELFPAY | END 2022-03-24 10:05 | disposition home or self-care (01) | LOC: OT 10:00 | PROVIDERS: PCP Physician Assistant; Visit Provider Neuromusculoskeletal Medicine, Sports Medicine | DX: S06.5X0D Traumatic subdural hemorrhage without loss of consciousness, subsequent encounter (principal); T07.XXXA Unspecified multiple injuries, initial encounter | CPT/HCPCS: 97010; 97014; 97035; 97110; 97140; 97164; 97166; G0283 ==

== ENCOUNTER → 2022-04-08 09:08 | Outpatient (CLI) | payer MEDICAID, SELFPAY ==
[2022-04-08 10:20] LABS: Alanine Aminotransferase 23 U/L (12-78); Albumin Level 3.6 g/dl (3.5-5.0); Alkaline Phosphatase 99 U/L (38-126); Aspartate Amino Transferase 22 U/L (14-36); Bilirubin,Unconjugated 0.1 mg/dL (0.0-1.1); Chol/HDL Ratio 3.3 (1-3.5); Cholesterol 126 mg/dl (140-200); HDL Cholesterol 38 mg/dl (40-60); Triglycerides 138 mg/dl (30-150); VLDL Cholesterol 28 mg/dL (0-40)
[2022-04-08 10:24] LABS: Bilirubin,Total < 0.1 mg/dl (0.2-1.3)
[2022-04-09 08:27] LABS: Direct LDL Cholesterol 65 mg/dL (100-129)
[2022-04-09 09:19] LABS: Bilirubin,Indirect 0.1 mg/dL (0.0-0.9)
== END ==
PROVIDERS: PCP Physician Assistant; Visit Provider Nurse Practitioner Family
DX: R00.2 Palpitations (principal); E78.2 Mixed hyperlipidemia; I10 Essential (primary) hypertension
CPT/HCPCS: 36415; 80061; 80076

== ENCOUNTER → 2022-06-04 01:21 | Outpatient (CLI) | payer MEDICAID, SELFPAY | LOC: LAB 06-05 06:34 → LAB.DROPOF 06-05 06:36 | PROVIDERS: PCP Physician Assistant; Visit Provider Physician Assistant | DX: N64.4 Mastodynia (principal); R39.9 Unspecified symptoms and signs involving the genitourinary system; B96.29 Other Escherichia coli [E. coli] as the cause of diseases classified elsewhere | CPT/HCPCS: 87086; 87088; 87186 ==

== ENCOUNTER 2022-06-15 10:00 | Outpatient (RCR) | payer MEDICAID, SELFPAY | END 2022-06-15 10:05 | disposition home or self-care (01) | LOC: PT 10:00 | PROVIDERS: PCP Physician Assistant; Visit Provider Psychiatry & Neurology Neurology | DX: M62.838 Other muscle spasm (principal) | CPT/HCPCS: 97010; 97014; 97110; 97112; 97140; 97163; 97164; 97530; G0283 ==

== ENCOUNTER → 2022-06-23 15:06 | Outpatient (CLI) | payer MEDICAID, SELFPAY ==
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
== END ==
PROVIDERS: PCP Physician Assistant; Visit Provider Physician Assistant
DX: N64.4 Mastodynia (principal)
CPT/HCPCS: 76641; 77062; 77066; G0279

== ENCOUNTER 2022-07-02 10:00 | Outpatient (RCR) | payer MEDICAID, SELFPAY ==
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
== END 2022-07-02 10:05 | disposition home or self-care (01) ==
LOC: ST 10:00
PROVIDERS: PCP Physician Assistant; Visit Provider Student in an Organized Health Care Education/Training Program
DX: S06.5X0D Traumatic subdural hemorrhage without loss of consciousness, subsequent encounter (principal); T07.XXXA Unspecified multiple injuries, initial encounter
CPT/HCPCS: 92507; 92523; 97129; 97130

== ENCOUNTER → 2022-10-26 10:07 | Outpatient (CLI) | payer MEDICAID, SELFPAY ==
--- NOTE | 2022-10-26 10:12 | XR_ITS ---
FINAL REPORT CLINICAL HISTORY: left foot pain FINDINGS: Weight-bearing AP, oblique and lateral views of the left foot were obtained. There is no prior exam for comparison. There is no acute fracture or dislocation. The joint spaces are preserved. Soft tissues are normal. IMPRESSION: No acute osseous abnormality of the left foot. Reviewed, Interpreted and Dictated by Amina Solis MD Transcribed by Airam Brandon Authenticated and [facility]
== END ==
PROVIDERS: PCP Physician Assistant; Visit Provider Nurse Practitioner Family
DX: M79.672 Pain in left foot (principal)
CPT/HCPCS: 73630

== ENCOUNTER → 2022-10-28 13:43 | Outpatient (CLI) | payer MEDICAID, SELFPAY ==
--- NOTE | 2022-10-28 13:43 | US_ITS ---
PROCEDURE INFORMATION: Exam: US Right Breast, Complete, Abscess Evaluation MG Right Diagnostic Breast Tomosynthesis Exam date and time: 10/28/2022 1:44 PM Age: 62 years old Clinical indication: Short-term radiographic followup; Right breast; Benign post traumatic fat necrosis TECHNIQUE: Imaging protocol: Right Ultrasound of the breast with image documentation. All quadrants and retroareolar regions evaluated. Exam focused on the search and evaluation for abscess. Exam is an emergent request and a non-BIRADS study. Right Diagnostic tomosynthesis and 2D mammography including computer-aided detection (CAD) when performed. Unilateral or bilateral exam. COMPARISON: 1. MG MM DIG MAMM BI DX W/CAD 06/23/2022 3:00 PM 2. MG MM DIG SCREENING MAMM BI W/CAD 12/26/2020 3:57 PM FINDINGS: MAMMOGRAPHY: The breast tissue is composed of scattered areas of fibroglandular density. There has been interval development of architectural distortion in the middle to posterior third of the right upper outer quadrant measuring approximately 1.9 cm in greatest dimension. No suspicious microcalcifications to suggest malignancy. No skin thickening or axillary adenopathy. ULTRASOUND: Sonographic images of the right breast demonstrates scattered cysts measuring up to 2.3 cm in the 8 o'clock axis 14 cm from the nipple where the patient reports a palpable abnormality. This correlates with mammographically visible benign fat necrosis. The architectural distortion on mammography is not seen on sonography. IMPRESSION: Benign posttraumatic fat necrosis in the right breast. Interval development of architectural distortion in the right upper outer quadrant may be further sequelae of benign posttraumatic fat necrosis. Biopsy however, under stereotactic guidance, is recommended to ensure a benign etiology. Mammographic images have been annotated ASSESSMENT: BI-RADS Category 4: Suspicious
== END ==
PROVIDERS: PCP Physician Assistant; Visit Provider Physician Assistant
DX: R92.8 Other abnormal and inconclusive findings on diagnostic imaging of breast (principal)
CPT/HCPCS: 76641; 77061; 77065; G0279

== ENCOUNTER → 2022-11-11 09:00 | Outpatient (CLI) | payer MEDICAID, SELFPAY ==
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
== END ==
PROVIDERS: PCP Physician Assistant; Visit Provider Internal Medicine Pulmonary Disease
DX: J98.6 Disorders of diaphragm (principal)
CPT/HCPCS: 76000; 94060

== ENCOUNTER → 2022-12-14 09:09 | Outpatient (CLI) | payer MEDICAID, SELFPAY ==
--- NOTE | 2022-12-14 09:13 | MM_ITS ---
FINAL REPORT CLINICAL HISTORY: post stereo, architectural distortion. Abnormal mammogram FINDINGS: STEREOTACTIC GUIDED RIGHT BREAST BIOPSY, CLIP PLACEMENT, AND POST BIOPSY MAMMOGRAM Indication: Abnormal mammogram/density/distortion Findings: The stereotactic guided breast biopsy procedure was explained in detail to the patient including potential risk and benefits. The patient voiced an understanding of the procedure, was given an opportunity to ask questions, after which informed consent was obtained. The patient was positioned upon the stereotactic unit in the supine position. The breast was prepped in the usual sterile fashion. Subcutaneous soft tissues were anesthetized with lidocaine with epinephrine. A superior to inferior approach on cc projection was utilized. Subsequently, with intermittent stereotactic guidance, the stereotactic biopsy needle was advanced into the breast in the region of the mammographic abnormality corresponding to recent diagnostic mammogram. Multiple vacuum assisted core samples were obtained. Sampling was thought to be adequate and the biopsy clip marker was deployed in the region of biopsy. Additional imaging as detailed below was performed. Post procedure routine CC and MLO view mammogram: Post biopsy changes. Biopsy marker clip noted to be in the appropriate location at approximately 12:00. Patient tolerated the procedure well. No immediate complications. Impression: 1. Technically successful stereotactic guided biopsy of right breast area of distortion 2. Biopsy marker clip deployed 3. Post biopsy mammogram obtained as above MAMMOGRAM RIGHT TECHNIQUE: Standard digital 2-D views COMPARISON: 10-28-22 DENSITY: There are scattered areas of fibroglandular density FINDINGS: Post biopsy marker clip is noted to be in satisfactory position within an asymmetric density at 12:00.. Postbiopsy changes are noted. IMPRESSION: Biopsy marker clip in good position RECOMMENDATION: Pending histopathology evaluation Authenticated and [facility]
== END ==
PROVIDERS: PCP Physician Assistant; Visit Provider Physician Assistant
DX: R92.8 Other abnormal and inconclusive findings on diagnostic imaging of breast (principal)
CPT/HCPCS: 19081; 76098; 77065

== ENCOUNTER → 2023-04-27 15:13 | Outpatient (CLI) | payer MEDICAID, SELFPAY ==
--- NOTE | 2023-04-27 15:16 | XR_ITS ---
FINAL REPORT CLINICAL HISTORY: foot pain FINDINGS: AP, oblique and lateral views of the left foot were obtained. There is no prior exam for comparison. There is no acute fracture or dislocation. The joint spaces are preserved. Soft tissues are normal. IMPRESSION: No acute osseous abnormality of the left foot. Reviewed, Interpreted and Dictated by Amina Solis MD Transcribed by Kira Oh Authenticated and [facility]
== END ==
PROVIDERS: PCP Physician Assistant; Visit Provider Podiatrist
DX: M79.672 Pain in left foot (principal)
CPT/HCPCS: 73630

== ENCOUNTER → 2023-05-21 14:30 | Outpatient (CLI) | payer MEDICAID, SELFPAY ==
--- NOTE | 2023-05-21 14:31 | CT_ITS ---
FINAL REPORT TECHNIQUE: Axial images were obtained from the lung apex to the mid abdomen by computed tomography. This study was performed with techniques to keep radiation doses as low as reasonably achievable (ALARA). Individualized dose reduction techniques using automated exposure control or adjustment of mA and/or kV according to the patient's size were employed. CLINICAL HISTORY: lung cancer screening former smoker, quit 13 years ago. smoked 1 ppx x 10 years COMPARISON: 03/23/2022 FINDINGS: CHEST CT LOW DOSE CTDI vol (mGy): 2.90 DLP (mGy-cm): 102.90 There is no axillary adenopathy. There is no hilar or mediastinal adenopathy. The heart is normal in size. There is no pericardial or pleural effusion. Lung window images demonstrate no suspicious infiltrate or nodule. There is a calcified granuloma in the left upper lobe. There is mild scarring in the lung bases. Limited images of the upper abdomen are unremarkable. IMPRESSION: Lung RADS category 1. Recommend 12 month follow-up low-dose chest CT. Reviewed, Interpreted and Dictated by Chace Camacho III, MD Transcribed by Kira Oh Authenticated and . [facility]
== END ==
PROVIDERS: PCP Physician Assistant; Visit Provider Internal Medicine Pulmonary Disease
DX: F17.210 Nicotine dependence, cigarettes, uncomplicated (principal)
CPT/HCPCS: 71271

== ENCOUNTER → 2023-06-18 10:50 | Outpatient (CLI) | payer MEDICAID, SELFPAY ==
--- NOTE | 2023-06-18 10:50 | MM_ITS ---
PROCEDURE INFORMATION: Exam: MG Bilateral Diagnostic Breast Tomosynthesis Exam date and time: 06/18/2023 10:38 AM Age: 62 years old Clinical indication: Right breast palpable lump. Right breast biopsy demonstrated benign fat necrosis without atypia. TECHNIQUE: Imaging protocol: Bilateral Diagnostic tomosynthesis and 2D mammography including computer-aided detection (CAD) when performed. Unilateral or bilateral exam. COMPARISON: 1. MG MM CLIP PLACEMENT RT 12/14/2022 10:47 AM 2. MG MM STEREOTACTIC LOC RT 12/14/2022 9:50 AM FINDINGS: MAMMOGRAPHY: The breasts are heterogeneously dense, which may obscure small masses. Architectural distortion and calcifications within it previously biopsied area of fat necrosis in the middle third of the right upper outer quadrant are noted. The calcifications however appear new compared to prior study. While these likely reflect ongoing benign fat necrosis, further evaluation with magnification views are recommended. A skin marker was placed over an area of palpable concern in the right upper outer quadrant. This appears to correspond to a 0.8 cm fat containing benign-appearing intramammary lymph node on both routine and spot compression views. No suspicous findings in the left breast.No axillary adenopathy IMPRESSION: Patient to be recalled for spot magnification views of the right breast in the CC and MLO projections for further evaluation of right breast calcifications. Patient to be recalled for right breast ultrasound for further evaluation of a palpable right breast mass. ASSESSMENT: BI-RADS Category 0: Incomplete- Need Additional Imaging Evaluation and/or Prior Mammograms for Comparison
== END ==
PROVIDERS: PCP Family Medicine; Visit Provider Physician Assistant
DX: R92.8 Other abnormal and inconclusive findings on diagnostic imaging of breast (principal)
CPT/HCPCS: 77062; 77066; G0279

== ENCOUNTER → 2023-07-12 13:48 | Outpatient (CLI) | payer MEDICAID, SELFPAY ==
--- NOTE | 2023-07-12 14:15 | MM_ITS ---
PROCEDURE INFORMATION: Exam: US Right Breast, Complete MG Right Diagnostic Breast Tomosynthesis Exam date and time: 07/12/2023 2:24 PM Age: 62 years old Clinical indication: Patient recalled on the basis of a screening mammogram for further evaluation; Right breast; calcifications. Further evaluation of palpable right breast mass TECHNIQUE: Imaging protocol: Complete ultrasound of all four quadrants of the right breast and the retroareolar regions, including ultrasound of the axilla when performed. Right Diagnostic tomosynthesis and 2D mammography including computer-aided detection (CAD) when performed. Unilateral or bilateral exam. COMPARISON: US BREAST RT COMPLETE 10/28/2022 2:44 PM FINDINGS: MAMMOGRAPHY: digital diagnostic magnification views of the right upper outer quadrant within the region of previously biopsied benign fat necrosis are innumerable variable microcalcifications. There are no lucent centered calcifications to confirm these as benign fat necrosis. The calcifications are considered radiographically indeterminate. The calcifications span approximately 6.0 cm of breast tissue. ULTRASOUND: Sonographic images of the right breast including the retroareolar region, all 4 quadrants and the axilla do not demonstrate any solid masses. Palpable abnormality in the upper inner quadrants 10 cm from the nipple corresponds to a benign 0.7 cm cyst on sonography. Additional scattered cysts are noted throughout much of the right breast including a superficial 8 o'clock axis cyst 14 cm from the nipple measuring 2.2 cm in greatest dimension. No retroareolar masses. No axillary adenopathy. IMPRESSION: 1. Indeterminate calcifications in the right upper outer quadrant. Stereotactic core biopsy is recommended for further evaluation. 2. Palpable abnormality in the right upper inner quadrant corresponds to a benign cyst. ASSESSMENT: BI-RADS Category 4: Suspicious
== END ==
PROVIDERS: PCP Family Medicine; Visit Provider Physician Assistant
DX: R92.8 Other abnormal and inconclusive findings on diagnostic imaging of breast (principal)
CPT/HCPCS: 76641; 77061; 77065; G0279

== ENCOUNTER 2024-02-09 13:01 | Emergency (ER) | payer MEDICAID, SELFPAY ==
[2024-02-09 13:02] VITALS: BP 109/73; PULSE 90; RESP 16; TEMP 36.4; O2SAT 94; BMI 35.4
[2024-02-09 14:00] VITALS: BP 107/70; PULSE 89; O2SAT 92
--- NOTE | 2024-02-09 14:04 | HMH.EDGENADL ---
Discharge Plan Disposition Patient Disposition: Home, Self-Care Condition: Good Prescriptions Prescriptions: New sulfamethoxazole-trimethoprim [Bactrim DS] 800-160 mg tablet 1 tab PO Q12H 5 Days Qty: 10 0RF No Action gabapentin 300 mg capsule 300 mg PO QID montelukast 10 mg tablet 10 mg PO DAILY 90 Days Qty: 90 1RF Trintellix 20 mg tablet 20 mg PO DAILY Qty: 90 1RF (DME) OneTouch Verio test strips Strip See Rx Instructions .ROUTE .COMPLEX Qty: 100 12RF Dose Instruction: USE TO TEST BLOOD GLUCOSE LEVEL THREE TIMES DAILY Rx Instructions: USE TO TEST BLOOD GLUCOSE LEVEL THREE TIMES DAILY (DME) lancets [OneTouch Delica Plus Lancet] 33 gauge misc See Rx Instructions .ROUTE .COMPLEX Qty: 100 11RF Dose Instruction: USE TO test blood sugar TWICE DAILY OR DIRECTED Rx Instructions: USE TO test blood sugar TWICE DAILY OR DIRECTED aspirin 81 mg tablet,delayed release (DR/EC) See Rx Instructions .ROUTE .COMPLEX Qty: 90 3RF Dose Instruction: TAKE ONE TABLET BY MOUTH EVERY DAY Rx Instructions: TAKE ONE TABLET BY MOUTH EVERY DAY atorvastatin 10 mg tablet See Rx Instructions .ROUTE .COMPLEX Qty: 90 3RF Dose Instruction: TAKE ONE TABLET BY MOUTH EVERY DAY AT BEDTIME Rx Instructions: TAKE ONE TABLET BY MOUTH EVERY DAY AT BEDTIME cholecalciferol (vitamin D3) 50 mcg (2,000 unit) capsule 50 mcg PO DAILY Qty: 90 3RF Ultra CoQ10 75 mg capsule 75 mg PO DAILY Qty: 90 3RF hydrochlorothiazide 25 mg tablet See Rx Instructions .ROUTE .COMPLEX Qty: 90 3RF Dose Instruction: TAKE ONE TABLET BY MOUTH EVERY DAY IN THE MORNING Rx Instructions: TAKE ONE TABLET BY MOUTH EVERY DAY IN THE MORNING loratadine 10 mg tablet See Rx Instructions .ROUTE .COMPLEX Qty: 90 3RF Dose Instruction: TAKE ONE TABLET BY MOUTH EVERY DAY IN THE MORNING Rx Instructions: TAKE ONE TABLET BY MOUTH EVERY DAY IN THE MORNING losartan 25 mg tablet See Rx Instructions .ROUTE .COMPLEX Qty: 90 3RF Dose Instruction: TAKE ONE TABLET BY MOUTH EVERY DAY FOR HIGH BLOOD PRESSURE Rx Instructions: TAKE ONE TABLET BY MOUTH EVERY DAY FOR HIGH BLOOD PRESSURE Myrbetriq 25 mg tablet extended release 24 hr See Rx Instructions .ROUTE .COMPLEX Qty: 90 3RF Dose Instruction: TAKE ONE TABLET BY MOUTH EVERY DAY Rx Instructions: TAKE ONE TABLET BY MOUTH EVERY DAY pantoprazole 40 mg tablet,delayed release (DR/EC) See Rx Instructions .ROUTE .COMPLEX Qty: 90 3RF Dose Instruction: TAKE ONE TABLET BY MOUTH EVERY DAY IN THE MORNING Rx Instructions: TAKE ONE TABLET BY MOUTH EVERY DAY IN THE MORNING potassium chloride 10 mEq tablet,ER particles/crystals See Rx Instructions .ROUTE .COMPLEX Qty: 180 3RF Dose Instruction: TAKE ONE TABLET BY MOUTH TWICE DAILY Rx Instructions: TAKE ONE TABLET BY MOUTH TWICE DAILY Referrals Follow up/Referrals: Bhumika White PA [Primary Care Provider] - See instructions Activity Restrictions/Add. Instructions Additional Instructions/Restrictions: Follow-up with your PCP in 1 week Clinical Impressions Clinical Impression: Bilateral leg cramps Urinary tract infectious disease Qualifiers: Urinary tract infection type: site unspecified Hematuria presence: with hematuria Qualified Code(s): N39.0 - Urinary tract infection, site not specified Instructions Patient Instructions: DI for Urinary Tract Infection (UTI), DI for Nocturnal Leg Cramps Discharge ED Provider: Enrike Velasquez General Adult HPI <SHANNAN James - Last Filed: 02/09/24 15:50> General Chief complaint: Extremity Injury, Lower Stated complaint: bilateral leg pain, no accident Time Seen by Provider: 02/09/24 14:03 Mode of Arrival: Wheelchair Source of Information: Patient Limitations: No Limitations Description of Symptoms (Recalled from ER Triage Doc. by RN): pt states she is here today for bilateral calf cramps however she states the right leg is worse, pt has been overusing them lately History of Present Illness HPI narrative: Patient presents for evaluation of bilateral leg cramps. Patient states that she began having leg cramps yesterday was worse through the night. She denies any trauma however she has been doing a lot of lifting and moving as they recently relocated to the [place]. She denies chest pain fever chills hemoptysis hematochezia melena nausea vomit diarrhea. She does take a potassium pill daily. Related Data Home Medications Medication Instructions Recorded Confirmed gabapentin 300 mg capsule 300 mg PO QID Pain 11/20/19 01/25/24 Previous Rx's Medication Instructions Recorded blood sugar diagnostic (Pano LogicTouch #100 strips 11/27/21 Verio test strips) lancets 33 gauge (OneTouch Delica ##100 03/05/22 Plus Lancet) montelukast 10 mg tablet 10 mg PO DAILY 90 days #90 tabs 05/25/23 vortioxetine 20 mg tablet 20 mg PO DAILY #90 tabs 01/18/24 (Trintellix) aspirin 81 mg tablet,delayed See Rx Instructions .Route 02/08/24 release .COMPLEX #90 tabs atorvastatin 10 mg tablet See Rx Instructions .Route 02/08/24 .COMPLEX #90 tabs cholecalciferol (vitamin D3) 50 50 mcg PO DAILY #90 caps 02/08/24 mcg (2,000 unit) capsule coenzyme Q10 75 mg capsule (Ultra 75 mg PO DAILY #90 caps 02/08/24 CoQ10) hydrochlorothiazide 25 mg tablet See Rx Instructions .Route 02/08/24 .COMPLEX #90 tabs loratadine 10 mg tablet See Rx Instructions .Route 02/08/24 .COMPLEX #90 tabs losartan 25 mg tablet See Rx Instructions .Route 02/08/24 .COMPLEX #90 tabs mirabegron 25 mg tablet,extended See Rx Instructions .Route 02/08/24 release 24 hr (Myrbetriq) .COMPLEX #90 tabs pantoprazole 40 mg tablet,delayed See Rx Instructions .Route 02/08/24 release .COMPLEX #90 tabs potassium chloride 10 mEq See Rx Instructions .Route 02/08/24 tablet,extended release(part/cryst) .COMPLEX #180 tabs sulfamethoxazole 800 1 tab PO Q12H 5 days #10 tabs 02/09/24 mg-trimethoprim 160 mg tablet (Bactrim DS) Allergies Allergy/AdvReac Type Severity Reaction Status Date / Time hydrocodone Allergy Intermediate Nausea Verified 01/25/24 10:13 SERGIO Inhibitors Allergy Unknown ANGIOEDEMA Verified 01/25/24 10:13 [SERGIO INHIBITORS] cephalexin [CEPHALEXIN] Allergy Unknown NA-NAUSEA/V Verified 01/25/24 10:13 OMITING clarithromycin [From BIAXIN] Allergy Unknown I-RASH Verified 01/25/24 10:13 codeine [CODEINE] Allergy Unknown NA-NAUSEA/V Verified 01/25/24 10:13 OMITING/ELIGIO H colesevelam [From WELCHOL] Allergy Unknown I-RASH Verified 01/25/24 10:13 doxycycline [DOXYCYCLINE] Allergy Unknown I-HIVES Verified 01/25/24 10:13 Iodinated Contrast Media Allergy Unknown S-ANAPHYLAX Verified 01/25/24 10:13 [IODINATED CONTRAST MEDIA - IS IV DYE] metoclopramide Allergy Unknown I-RASH Verified 01/25/24 10:13 [METOCLOPRAMIDE] oxycodone [From ROXICET] Allergy Unknown NA-NAUSEA Verified 01/25/24 10:13 Penicillins [PENICILLINS] Allergy Unknown I-HIVES Verified 01/25/24 10:13 pentazocine [PENTAZOCINE] Allergy Unknown NA-NAUSEA/V Verified 01/25/24 10:13 OMITING prednisone [PREDNISONE] Allergy Unknown I-HIVES/N/V Verified 01/25/24 10:13 pregabalin [PREGABALIN] Allergy Unknown I-RASH Verified 01/25/24 10:13 senna [SENNA] Allergy Unknown ITCHING Verified 01/25/24 10:13 topiramate [From TOPAMAX] Allergy Unknown CONFUSION Verified 01/25/24 10:13 tramadol [TRAMADOL] Allergy Unknown ITCHING Verified 01/25/24 10:13 zolmitriptan [From ZOMIG] Allergy Unknown I-HIVES Verified 01/25/24 10:13 rizatriptan [From Maxalt] Allergy Verified 01/25/24 10:13 Opioids - Morphine Analogues AdvReac Verified 01/25/24 10:13 penicillin Allergy Intermediate hives Uncoded 01/19/24 13:13 JOSEPH PEPPER Allergy Unknown I-RASH Uncoded 01/19/24 13:13 TAPE Allergy Unknown I-RASH Uncoded 01/19/24 13:13 PFS <SHANNAN James - Last Filed: 02/09/24 15:50> [facility] Disclaimer: The information contained in this section may have been updated after the patient was seen, as this information can be updated by other users. Medical History Foot pain, left Asthma Dyspnea on exertion Generalized anxiety disorder Allergic rhinitis Encounter for screening for malignant neoplasm of lung in current smoker with 30 pack year history or greater Smoking greater than 30 pack years Seasonal allergies Mild asthma Neuropathy of left lower extremity Chronic abdominal pain Ex-smoker Abnormal stress test Atypical angina COPD (chronic obstructive pulmonary disease) Generalized muscle ache Decreased circulation Cervical radiculopathy Dyspnea Urinary incontinence Decreased mobility Frequent falls SOB (shortness of breath) Palpitations HLD (hyperlipidemia) Migraines Urinary, incontinence, stress female Vitamin D deficiency Hypertension Surgical History History of hemorrhoidectomy History of bladder suspension procedure History of laryngoscopy History of splenectomy History of vocal cord polypectomy Family History Other No significant family history Social History Smoking Status: Never smoker alcohol intake: never substance use type: denies use current occupational status: disabled Travel in the last 8 weeks: None household members: family housing: house number of children: 2 caffeine: No <SHANNAN James - Last Filed: 02/09/24 15:50> ROS Obtained: Yes Systems reviewed as appropriate & no additional complaints except as documented Physical Exam <SHANNAN James - Last Filed: 02/09/24 15:50> General General appearance: alert and in no apparent distress Respiratory Respiratory exam: Present normal lung sounds bilaterally Cardiovascular Cardiovascular exam: Present regular rate and normal rhythm Extremities Exam Extremities exam: Present normal inspection, full ROM and tenderness (Bilateral tenderness in the distal lower extremities both anterior and posterior) Neurological Exam Neurological exam: Present alert and oriented X3 Skin Skin exam: Present warm, dry and normal color Medical Decision Making <SHANNAN James - Last Filed: 02/09/24 15:50> Medical Records Medical records reviewed: Yes I reviewed the patient's medical records. Roland Inquiry Pt receiving controlled substance: No Vital Signs: 02/09/24 13:02 02/09/24 14:00 02/09/24 14:30 Temperature 97.6 F Temperature Source Oral Pulse Rate 89 87 Pulse Rate [Right Radial] 90 Respiratory Rate 16 Blood Pressure 107/70 L 129/76 Blood Pressure [Right Arm] 109/73 L Blood Pressure Mean 83 90 Blood Pressure Mean [Right Arm] 85 02 Sat by Pulse Oximetry 94 L 92 L 93 L Oxygen Delivery Method Room Air 02/09/24 15:00 02/09/24 15:30 02/09/24 15:53 Temperature 97.6 F Temperature Source Oral Pulse Rate 87 86 85 Pulse Rate [Right Radial] Respiratory Rate 18 Blood Pressure 114/69 121/70 121/70 Blood Pressure [Right Arm] Blood Pressure Mean 80 82 Blood Pressure Mean [Right Arm] 02 Sat by Pulse Oximetry 93 L 94 L Oxygen Delivery Method Room Air Lab Data Lab results reviewed: Yes I reviewed the patient's lab results. Lab Results 02/09/24 14:15: Urine Color Yellow, Urine Appearance Slightly cloudy, Urine pH 6.0, Ur Specific [place] 1.025, Urine Protein Negative, Urine Glucose (UA) Negative, Urine Ketones Negative, Urine Blood Negative, Urine Nitrate Negative, Urine Bilirubin Negative, Urine Urobilinogen 0.2, Ur Leukocyte Esterase 2+ A, Urine RBC Occasional, Urine WBC 10-20, Ur Squamous Epith Cells 5-10, Urine Bacteria 4+ 02/09/24 14:20: WBC 7.3, RBC 4.88, Hgb 15.4, Hct 48.0 H, MCV 98.4, MCH 31.7 H, MCHC 32.2, RDW 13.8, Plt Count 276, MPV 7.5, Neut % (Auto) 76.8, Lymph % (Auto) 15.3, [place] % (Auto) 5.3, Eos % (Auto) 1.7, Baso % (Auto) 0.8, Neut # (Auto) 5.6, Lymph # (Auto) 1.1, [place] # (Auto) 0.4, Eos # (Auto) 0.1, Baso # (Auto) 0.1, D-Dimer 0.33, Sodium 139, Potassium 3.6, Chloride 103, Carbon Dioxide 33 H, Anion Gap 6.6, BUN 20 H, Creatinine 0.90, Estimated Creat Clear 82, Estimated GFR 63, Est GFR ( Amer) 77, Glucose 103 H, Calcium 9.4, Magnesium 1.9, Total Bilirubin 0.5, AST 43 H, ALT 46, Alkaline Phosphatase 74, Total Creatine Kinase 81, Total Protein 7.3, Albumin 4.2, Globulin 3.1, Albumin/Globulin Ratio 1.4 02/09/24 14:20 02/09/24 14:20 Orders (Tests/Meds): ED MEDICATIONS Discontinued Medications Generic Name Dose Route Start Last Admin Trade Name Freq PRN Reason Stop Dose Admin Acetaminophen 1,000 mg 02/09/24 14:07 02/09/24 14:22 Acetaminophen 1,000mg/100ml Vial IV 02/09/24 14:08 1,000 mg ONCE ONE Administration Ketorolac Tromethamine 15 mg 02/09/24 14:07 02/09/24 14:23 Ketorolac 30mg/Ml Vial IV 02/09/24 14:08 15 mg ONCE ONE Administration Methocarbamol 500 mg 02/09/24 14:07 02/09/24 14:23 Methocarbamol 500mg Tablet PO 02/09/24 14:08 500 mg ONCE ONE Administration Trimethoprim/Sulfamethoxazole 1 each 02/09/24 15:49 02/09/24 16:02 Sulfa/Trimethoprim 1 Tablet PO 02/09/24 15:50 1 each ONCE ONE Administration ORDERS Category Date Time Status CBC w/Auto Diff [Complete Blood Count Auto Diff] Stat Lab 02/09/24 14:20 Completed CK [Creatine Kinase] Stat Lab 02/09/24 14:20 Completed CMP [Comprehensive Metabolic Panel] Stat Lab 02/09/24 14:20 Completed D-Dimer Stat Lab 02/09/24 14:20 Completed Magnesium Stat Lab 02/09/24 14:20 Completed UA [Urinalysis and Microscopic] Stat Lab 02/09/24 14:15 Completed Urine Culture Stat Micro 02/09/24 14:15 Received Medical Decision Narrative: In summary patient is a 63-year-old female who presents to the emergency department for evaluation of bilateral lower extremity cramps. Patient is hemodynamically stable upon arrival, afebrile. Physical exam is remarkable for tenderness to palpation of the bilateral lower extremities from the knees down but no evidence of edema erythema induration palpable cords negative Homans' sign she is neurovascular intact distally.. Differential diagnosis includes muscle cramps versus electrolyte abnormality versus DVT although less likely, etc. Initial workup will be conducted with hematologic labs urinalysis. Initial interventions include crystalloid bolus Toradol Tylenol Robaxin. Initial workup reviewed by me shows her hematologic labs are nonactionable however patient did have evidence of a urinary tract infection. Upon repeat evaluation patient reports only slight improvement in her leg cramps but her workup has revealed no serious or life-threatening problems. Given this and interactive discussion with the patient and via patient directed decision making she is elected for discharge home with continuing taking [id number] Tylenol Motrin as needed for her pain. Will give her prescription for Bactrim with first dose given here for her urinary tract infection <Enrike Velasquez MD - Last Filed: 02/09/24 16:17> Vital Signs: 02/09/24 13:02 02/09/24 14:00 02/09/24 14:30 Temperature 97.6 F Temperature Source Oral Pulse Rate 89 87 Pulse Rate [Right Radial] 90 Respiratory Rate 16 Blood Pressure 107/70 L 129/76 Blood Pressure [Right Arm] 109/73 L Blood Pressure Mean 83 90 Blood Pressure Mean [Right Arm] 85 02 Sat by Pulse Oximetry 94 L 92 L 93 L Oxygen Delivery Method Room Air 02/09/24 15:00 02/09/24 15:30 02/09/24 15:53 Temperature 97.6 F Temperature Source Oral Pulse Rate 87 86 85 Pulse Rate [Right Radial] Respiratory Rate 18 Blood Pressure 114/69 121/70 121/70 Blood Pressure [Right Arm] Blood Pressure Mean 80 82 Blood Pressure Mean [Right Arm] 02 Sat by Pulse Oximetry 93 L 94 L Oxygen Delivery Method Room Air Lab Data Lab Results 02/09/24 14:15: Urine Color Yellow, Urine Appearance Slightly cloudy, Urine pH 6.0, Ur Specific [place] 1.025, Urine Protein Negative, Urine Glucose (UA) Negative, Urine Ketones Negative, Urine Blood Negative, Urine Nitrate Negative, Urine Bilirubin Negative, Urine Urobilinogen 0.2, Ur Leukocyte Esterase 2+ A, Urine RBC Occasional, Urine WBC 10-20, Ur Squamous Epith Cells 5-10, Urine Bacteria 4+ 02/09/24 14:20: WBC 7.3, RBC 4.88, Hgb 15.4, Hct 48.0 H, MCV 98.4, MCH 31.7 H, MCHC 32.2, RDW 13.8, Plt Count 276, MPV 7.5, Neut % (Auto) 76.8, Lymph % (Auto) 15.3, [place] % (Auto) 5.3, Eos % (Auto) 1.7, Baso % (Auto) 0.8, Neut # (Auto) 5.6, Lymph # (Auto) 1.1, [place] # (Auto) 0.4, Eos # (Auto) 0.1, Baso # (Auto) 0.1, D-Dimer 0.33, Sodium 139, Potassium 3.6, Chloride 103, Carbon Dioxide 33 H, Anion Gap 6.6, BUN 20 H, Creatinine 0.90, Estimated Creat Clear 82, Estimated GFR 63, Est GFR ( Amer) 77, Glucose 103 H, Calcium 9.4, Magnesium 1.9, Total Bilirubin 0.5, AST 43 H, ALT 46, Alkaline Phosphatase 74, Total Creatine Kinase 81, Total Protein 7.3, Albumin 4.2, Globulin 3.1, Albumin/Globulin Ratio 1.4 Orders (Tests/Meds): ED MEDICATIONS Discontinued Medications Generic Name Dose Route Start Last Admin Trade Name Freq PRN Reason Stop Dose Admin Acetaminophen 1,000 mg 02/09/24 14:07 02/09/24 14:22 Acetaminophen 1,000mg/100ml Vial IV 02/09/24 14:08 1,000 mg ONCE ONE Administration Ketorolac Tromethamine 15 mg 02/09/24 14:07 02/09/24 14:23 Ketorolac 30mg/Ml Vial IV 02/09/24 14:08 15 mg ONCE ONE Administration Methocarbamol 500 mg 02/09/24 14:07 02/09/24 14:23 Methocarbamol 500mg Tablet PO 02/09/24 14:08 500 mg ONCE ONE Administration Trimethoprim/Sulfamethoxazole 1 each 02/09/24 15:49 02/09/24 16:02 Sulfa/Trimethoprim 1 Tablet PO 02/09/24 15:50 1 each ONCE ONE Administration ORDERS Category Date Time Status CBC w/Auto Diff [Complete Blood Count Auto Diff] Stat Lab 02/09/24 14:20 Completed CK [Creatine Kinase] Stat Lab 02/09/24 14:20 Completed CMP [Comprehensive Metabolic Panel] Stat Lab 02/09/24 14:20 Completed D-Dimer Stat Lab 02/09/24 14:20 Completed Magnesium Stat Lab 02/09/24 14:20 Completed UA [Urinalysis and Microscopic] Stat Lab 02/09/24 14:15 Completed Urine Culture Stat Micro 02/09/24 14:15 Received Medical Decision Narrative: In summary patient is a 63-year-old female who presents to the emergency department for evaluation of bilateral lower extremity cramps. Patient is hemodynamically stable upon arrival, afebrile. Physical exam is remarkable for tenderness to palpation of the bilateral lower extremities from the knees down but no evidence of edema erythema induration palpable cords negative Homans' sign she is neurovascular intact distally.. Differential diagnosis includes muscle cramps versus electrolyte abnormality versus DVT although less likely, etc. Initial workup will be conducted with hematologic labs urinalysis. Initial interventions include crystalloid bolus Toradol Tylenol Robaxin. Initial workup reviewed by me shows her hematologic labs are nonactionable however patient did have evidence of a urinary tract infection. Upon repeat evaluation patient reports only slight improvement in her leg cramps but her workup has revealed no serious or life-threatening problems. Given this and interactive discussion with the patient and via patient directed decision making she is elected for discharge home with continuing taking [id number] Tylenol Motrin as needed for her pain. Will give her prescription for Bactrim with first dose given here for her urinary tract infection I was consulted by the [facility], and we discussed the complexity of the problems being addressed. I approved the treatment and management plan for this patient?s care in the Emergency Department, thus performing a substantive portion of the medical decision making. Enrike Velasquez MD Critical Care <SHANNAN James - Last Filed: 02/09/24 15:50> Critical Care Time Critical Care Time: No
[2024-02-09 14:16] LABS: Microscopic, Urine URINE MICROSCOPIC (MICROSCOPIC)
[2024-02-09] MEDS: ACETAMINOPHEN 1,000MG/100ML VIAL 1000 MG IV (14:22)
[2024-02-09] MEDS: METHOCARBAMOL 500MG TABLET 500 MG PO (14:23)
[2024-02-09] MEDS: KETOROLAC 30MG/ML VIAL 15 MG IV (14:23)
[2024-02-09 14:24] LABS: Bilirubin,Urine Negative (Negative); Blood, Urine Negative (Negative); Color,Urine YELLOW (Yellow); Glucose,Urine (UA) Negative (Negative); Ketones,Urine Negative (Negative); Leukocyte Esterase,Urine 2+ (Negative); Nitrate,Urine Negative (Negative); Protein,Urine Negative (Negative); Specific Gravity, Urine 1.025 (1.005-1.030); Urobilinogen,Urine 0.2 EU/dl (0.2)
[2024-02-09 14:30] VITALS: BP 129/76; PULSE 87; O2SAT 93
[2024-02-09 14:37] LABS: Appearance,Urine Slightly Cloudy (Clear)
[2024-02-09 14:42] LABS: Basophils # 0.1 K/mm3 (0-0.2); Basophils % 0.8 % (0.1-2.0); Eosinophils # 0.1 K/mm3 (0.0-0.4); Eosinophils % 1.7 % (0.1-12.0); Hemoglobin 15.4 g/dL (12.2-16.2); Lymphocytes # 1.1 K/mm3 (0.7-4.5); Lymphocytes % 15.3 % (10-50); Mean Corpuscular HGB Conc 32.2 g/dL (31.8-35.4); Mean Corpuscular Hemoglobin 31.7 pg (27.0-31.2); Mean Corpuscular Volume 98.4 fl (81-99); Mean Platelet Volume 7.5 fl (7.4-10.4); Monocytes # 0.4 K/mm3 (0.1-1.0); Monocytes % 5.3 % (1.7-9.3); Neutrophils # 5.6 K/mm3 (1.8-7.8); Neutrophils % 76.8 % (37.0-80.0); Platelet Count 276 K/mm3 (142-424); Red Blood Count 4.88 M/mm3 (4.20-5.40); Red Cell Distribution Width 13.8 % (11.5-17.5); White Blood Count 7.3 K/mm3 (4.8-10.8)
[2024-02-09 14:54] LABS: Bacteria,Urine 4+ /lpf; RBC,Urine Occasional #/hpf (0-3)
[2024-02-09 14:55] LABS: Alanine Aminotransferase 46 U/L (12-78); Albumin Level 4.2 g/dl (3.5-5.0); Albumin/Globulin Ratio 1.4 (1.1-1.8); Alkaline Phosphatase 74 U/L (38-126); Anion Gap 6.6 mEq/L (5-15); Aspartate Amino Transferase 43 U/L (14-36); Bilirubin,Total 0.5 mg/dl (0.2-1.3); Blood Urea Nitrogen 20 mg/dl (7-17); Calcium 9.4 mg/dl (8.4-10.2); Carbon Dioxide 33 mmol/L (22.0-30.0); Chloride 103 mmol/L (98-107); Creatine Kinase 81 U/L (30-135); Creatinine Clearance Estimated 82 mL/min (50-200); Estimated Glomerular Filt Rate 63 ml/min (>60); GFR (African American) 77 ML/MIN (>60); Globulin 3.1 g/dL (1.3-3.2); Glucose 103 mg/dl (74-100); Magnesium 1.9 mg/dl (1.6-2.3); Potassium 3.6 mmoL/L (3.5-5.1); Sodium 139 mmol/L (136-145); Total Protein,Serum 7.3 g/dl (6.3-8.2)
[2024-02-09 14:59] LABS: D-Dimer 0.33 ug/mL (0.0-0.5)
[2024-02-09 15:00] VITALS: BP 114/69; PULSE 87; O2SAT 93
[2024-02-09 15:30] VITALS: BP 121/70; PULSE 86; O2SAT 94
[2024-02-09 15:53] VITALS: BP 121/70; PULSE 85; RESP 18; TEMP 36.4; O2SAT 93
[2024-02-09] MEDS: SULFA/TRIMETHOPRIM 1 TABLET 1 EACH PO (16:02)
--- NOTE | 2024-02-10 09:41 | PC.NURSE ---
Discussed with urine culture, pt dc with bactrim, NTD
== END 2024-02-09 16:06 | disposition home or self-care (01) ==
PROVIDERS: Physician Assistant; Emergency Provider Emergency Medicine; PCP Physician Assistant
DX: N39.0 Urinary tract infection, site not specified (principal); B96.1 Klebsiella pneumoniae [K. pneumoniae] as the cause of diseases classified elsewhere; M62.831 Muscle spasm of calf; M79.604 Pain in right leg; M79.605 Pain in left leg; Z87.891 Personal history of nicotine dependence; J44.9 Chronic obstructive pulmonary disease, unspecified; I10 Essential (primary) hypertension; E78.5 Hyperlipidemia, unspecified
CPT/HCPCS: 80053; 81001; 82550; 83735; 85025; 85378; 87086; 87088; 87186; 96374; 96375; 99284; J0131; J1885

== ENCOUNTER 2024-03-28 14:55 | Outpatient (CLI) | payer MEDICAID, SELFPAY ==
[2024-03-28 15:15] LABS: Basophils # 0.1 K/mm3 (0-0.2); Basophils % 1.1 % (0.1-2.0); Eosinophils # 0.1 K/mm3 (0.0-0.4); Eosinophils % 2.1 % (0.1-12.0); Hematocrit 44.3 % (37.0-47.0); Hemoglobin 13.8 g/dL (12.2-16.2); Lymphocytes # 1.6 K/mm3 (0.7-4.5); Lymphocytes % 25.2 % (10-50); Mean Corpuscular HGB Conc 31.2 g/dL (31.8-35.4); Mean Corpuscular Hemoglobin 31.3 pg (27.0-31.2); Mean Corpuscular Volume 100.2 fl (81-99); Mean Platelet Volume 7.7 fl (7.4-10.4); Monocytes # 0.4 K/mm3 (0.1-1.0); Monocytes % 6.2 % (1.7-9.3); Neutrophils # 4.2 K/mm3 (1.8-7.8); Neutrophils % 65.3 % (37.0-80.0); Platelet Count 282 K/mm3 (142-424); Red Blood Count 4.43 M/mm3 (4.20-5.40); Red Cell Distribution Width 13.4 % (11.5-17.5); White Blood Count 6.4 K/mm3 (4.8-10.8)
[2024-03-28 15:47] LABS: Alanine Aminotransferase 40 U/L (12-78); Albumin Level 3.5 g/dl (3.5-5.0); Alkaline Phosphatase 67 U/L (38-126); Anion Gap 5.1 mEq/L (5-15); Aspartate Amino Transferase 33 U/L (14-36); Bilirubin,Indirect 0.6 mg/dL (0.0-0.9); Bilirubin,Total 0.6 mg/dl (0.2-1.3); Bilirubin,Unconjugated 0.5 mg/dL (0.0-1.1); Blood Urea Nitrogen 19 mg/dl (7-17); Carbon Dioxide 33 mmol/L (22.0-30.0); Chloride 106 mmol/L (98-107); Chol/HDL Ratio 3.1 (1-3.5); Cholesterol 146 mg/dl (140-200); Estimated Glomerular Filt Rate 63 ml/min (>60); GFR (African American) 77 ML/MIN (>60); Glucose 88 mg/dl (74-100); HDL Cholesterol 47 mg/dl (40-60); Magnesium 1.9 mg/dl (1.6-2.3); Potassium 4.1 mmoL/L (3.5-5.1); Sodium 140 mmol/L (136-145); Total Protein,Serum 6.2 g/dl (6.3-8.2); Triglycerides 209 mg/dl (30-150); VLDL Cholesterol 42 mg/dL (0-40)
[2024-03-28 15:58] LABS: Direct LDL Cholesterol 71.75 mg/dL (100-129)
[2024-03-28 16:06] LABS: Free T4 (Free Thyroxine) 1.05 ng/dl (0.78-2.19)
[2024-03-28 16:19] LABS: Thyroid Stimulating Hormone 1.22 uIU/mL (0.465-4.68)
== END 2024-03-28 23:59 | disposition home or self-care (01) ==
LOC: LAB 15:28
PROVIDERS: PCP Physician Assistant; Visit Provider Physician Assistant
DX: I10 Essential (primary) hypertension (principal); E78.2 Mixed hyperlipidemia; R06.02 Shortness of breath; R06.00 Dyspnea, unspecified; R94.31 Abnormal electrocardiogram [ECG] [EKG]; R60.0 Localized edema
CPT/HCPCS: 36415; 80048; 80061; 80076; 83735; 84439; 84443; 85025

== ENCOUNTER 2024-04-11 13:04 | Outpatient (CLI) | payer MEDICAID, SELFPAY ==
--- NOTE | 2024-04-11 14:08 | CA_ITS ---
APPROVED REPORT EXAM: Comprehensive 2D, Doppler, and color-flow Echocardiogram Controller [place]: Veronica Rebollar CRT Ht: 5 ft 2 in Wt: 190lbs BSA: 1.87 BP: 108/61 mmHg Indications: Shortness of Breath Abnormal ECG, Peripheral Edema, Hyperlipidemia 2D Dimensions LA Volume 35.20 mL LA Volume Index 18.30 mL/m2 (M/F) 16-34 M-Mode Dimensions RVDd 2.93 cm (0.9-2.6) LA Diam 3.21 cm (1.9-4.0) LVDd 4.91 cm (3.5-5.7) LVDs 3.42 cm (3.5-5.7) IVSd 1.26 cm (0.6-1.1) PWd 0.91 cm (0.6-1.1) EF (Teich) 57.60% FS 30.30% EDV (Teich) 113.40 mL TAPSE 2.13 (<1.7) ESV (Teich) 48.10 mL LV Diastology E Decel Time 200 (160-240 msec) E/A Ratio 0.95 MED A' 6.70 cm/s LAT A' 8.80 cm/s Aortic Valve AO Peak GR. 5.50 mmHg Mitral Valve MV A Velocity 66.0 (40-130 cm/s) E/A Ratio 0.95 Pulmonary Valve PV Peak Velocity 93.0 (50-150 cm/s) Tricuspid Valve TR P. Velocity 190.00 cm/s RAP Estimate 10.00 mmHg RVSP 24.40 mmHg Left Ventricle The left ventricle is normal size. The left ventricular systolic function is normal. The left ventricular ejection fraction is within the normal range. There is increased LV wall thickness. There is normal LV segmental wall motion. Transmitral Doppler flow pattern suggests impaired LV relaxation. LVEF is 55%. Right Ventricle Right ventricle is mildly dilated. The right ventricular systolic function is normal. Atria The left atrium is mildly dilated. The right atrium is mildly dilated. The interatrial septum is not well-visualized. Aortic Valve Aortic valve is mildly thickened. Trace aortic regurgitation. There is no aortic valvular stenosis. Mitral Valve The mitral valve leaflets are mildly thickened. No evidence of mitral valve stenosis. Trace mitral regurgitation. Tricuspid Valve The tricuspid valve leaflets are thin and pliable. Mild tricuspid regurgitation. RVSP is normal. Pulmonic Valve The pulmonary valve is not well-visualized. Great Vessels The aortic root is normal in size. The ascending aorta is not well-visualized. IVC is normal in size and collapses >50% with inspiration. Pericardium There is no pericardial effusion. Other Information Study Quality: Technically Difficult Conclusion Technically difficult study due to poor acoustic windows. Normal biventricular systolic function. Mild RV dilation. Mild biatrial dilation. Mild TR. Electronically signed by : Allison Castrejon MD 04/17/2024 20:20:50
== END 2024-04-11 23:59 | disposition home or self-care (01) ==
LOC: RT 13:05
PROVIDERS: PCP Nurse Practitioner Family; Visit Provider Physician Assistant
DX: I10 Essential (primary) hypertension (principal); R06.02 Shortness of breath; R94.31 Abnormal electrocardiogram [ECG] [EKG]; R60.0 Localized edema
CPT/HCPCS: 93306

== ENCOUNTER 2024-05-10 11:19 | Outpatient (CLI) | payer MEDICAID, SELFPAY ==
--- NOTE | 2024-05-10 11:27 | XR_ITS ---
FINAL REPORT TECHNIQUE: 3 views CLINICAL HISTORY: PAIN IN THORACIC SPINE COMPARISON: None FINDINGS: THORACIC SPINE: AP, lateral, and swimmer's views of the thoracic spine were obtained. There is no prior exam for comparison. There is no acute fracture or malalignment. Moderate degenerative changes are present with multilevel osteophytes. Moderate thoracic kyphosis is present, along with mild right curvature. Spinal stimulators are present in the mid thoracic and cervical spine regions. Vertebral body height is preserved. Paraspinal soft tissues are within normal limits. IMPRESSION: Moderate degenerative changes with multilevel osteophytes, and moderate thoracic kyphosis. No acute bony abnormality identified. Reviewed, Interpreted and Dictated by Chace Camacho III, MD Transcribed by Judie David Authenticated and . [facility]
== END 2024-05-10 23:59 | disposition home or self-care (01) ==
LOC: RAD 11:22
PROVIDERS: PCP Internal Medicine; Visit Provider Physical Medicine & Rehabilitation
DX: M54.6 Pain in thoracic spine (principal)
CPT/HCPCS: 72072

== ENCOUNTER 2024-05-30 15:49 | Outpatient (CLI) | payer MEDICAID, SELFPAY ==
[2024-05-30 16:28] LABS: Basophils # 0.1 K/mm3 (0-0.2); Basophils % 0.9 % (0.1-2.0); Eosinophils # 0.1 K/mm3 (0.0-0.4); Eosinophils % 2.1 % (0.1-12.0); Hematocrit 46.7 % (37.0-47.0); Hemoglobin 15.5 g/dL (12.2-16.2); Lymphocytes # 1.4 K/mm3 (0.7-4.5); Lymphocytes % 20.1 % (10-50); Mean Corpuscular HGB Conc 33.2 g/dL (31.8-35.4); Mean Corpuscular Hemoglobin 31.5 pg (27.0-31.2); Mean Corpuscular Volume 94.7 fl (81-99); Monocytes # 0.4 K/mm3 (0.1-1.0); Monocytes % 5.1 % (1.7-9.3); Neutrophils # 4.8 K/mm3 (1.8-7.8); Neutrophils % 71.8 % (37.0-80.0); Platelet Count 229 K/mm3 (142-424); Red Blood Count 4.93 M/mm3 (4.20-5.40); White Blood Count 6.7 K/mm3 (4.8-10.8)
[2024-05-30 17:00] LABS: Alanine Aminotransferase 46 U/L (12-78); Albumin/Globulin Ratio 1.6 (1.1-1.8); Alkaline Phosphatase 77 U/L (38-126); Amylase 53 U/L (30-110); Anion Gap 13.1 mEq/L (5-15); Aspartate Amino Transferase 37 U/L (14-36); Bilirubin,Total 0.8 mg/dl (0.2-1.3); Blood Urea Nitrogen 16 mg/dl (7-17); Calcium 9.1 mg/dl (8.4-10.2); Carbon Dioxide 33 mmol/L (22.0-30.0); Chloride 98 mmol/L (98-107); Estimated Glomerular Filt Rate 72 ml/min (>60); GFR (African American) 88 ML/MIN (>60); Globulin 2.5 g/dL (1.3-3.2); Glucose 78 mg/dl (74-100); Lipase 98 U/L (23-300); Potassium 4.1 mmoL/L (3.5-5.1); Sodium 140 mmol/L (136-145); Total Protein,Serum 6.5 g/dl (6.3-8.2)
[2024-05-30 17:15] LABS: 25-OH Vitamin D, Total 46.3 ng/mL (30-100)
[2024-05-30 17:48] LABS: Vitamin B12 436 pg/mL (239-931)
[2024-05-30 17:57] LABS: Hemoglobin A1C 5.4 % (4.0-6.0)
[2024-06-09 02:12] LABS: Vitamin C 1.4 mg/dL (0.4-2.0)
== END 2024-05-30 23:59 | disposition home or self-care (01) ==
LOC: LAB 15:50
PROVIDERS: PCP Nurse Practitioner Family; Visit Provider Nurse Practitioner Family
DX: R11.0 Nausea (principal); R14.0 Abdominal distension (gaseous); E16.2 Hypoglycemia, unspecified; E54 Ascorbic acid deficiency; E55.9 Vitamin D deficiency, unspecified; E53.8 Deficiency of other specified B group vitamins
CPT/HCPCS: 36415; 80053; 82150; 82180; 82306; 82607; 83036; 83690; 85025

== ENCOUNTER 2024-06-06 08:05 | Outpatient (CLI) | payer MEDICAID, SELFPAY ==
--- NOTE | 2024-06-06 08:05 | US_ITS ---
FINAL REPORT CLINICAL HISTORY: ABD BLOATING AN ABD PAIN COMPARISON: None FINDINGS: Sonographic images of the right upper quadrant were obtained. The pancreas is partially obscured. There is fatty infiltration of the liver. The gallbladder wall measuring 4 mm in thickness. There is no evidence of biliary ductal dilatation.The common duct measures 3 mm. Limited images of the right kidney are unremarkable. IMPRESSION: Gallbladder wall thickening without gallstones visualized. No biliary ductal dilatation is visualized. Fatty infiltration of the liver. Authenticated and ERN
== END 2024-06-06 23:59 | disposition home or self-care (01) ==
LOC: RAD 08:05
PROVIDERS: PCP Nurse Practitioner Family; Visit Provider Nurse Practitioner Family
DX: R14.0 Abdominal distension (gaseous) (principal); R11.0 Nausea
CPT/HCPCS: 76705

== ENCOUNTER 2024-06-14 16:00 | Outpatient (CLI) | payer MEDICAID, SELFPAY ==
[2024-06-14 16:47] LABS: Microscopic, Urine URINE MICROSCOPIC (MICROSCOPIC)
[2024-06-14 17:26] LABS: Creatinine,Urine Random 113 mg/dL (Not Estab.)
[2024-06-14 17:27] LABS: Appearance,Urine CLEAR (Clear); Bilirubin,Urine Negative (Negative); Blood, Urine Negative (Negative); Color,Urine YELLOW (Yellow); Glucose,Urine (UA) Negative (Negative); Ketones,Urine Negative (Negative); Leukocyte Esterase,Urine Negative (Negative); Nitrate,Urine Negative (Negative); Protein,Urine Negative (Negative); Specific Gravity, Urine 1.025 (1.005-1.030); Urobilinogen,Urine 0.2 EU/dl (0.2)
[2024-06-14 17:30] LABS: Microalbumin < 6.000 mg/L (0-16.7)
[2024-06-14 20:35] LABS: Bacteria,Urine 4+ /lpf; Mucus,Urine 1+ /lpf; WBC,Urine 20-50 #/hpf (0-3)
== END 2024-06-14 23:59 | disposition home or self-care (01) ==
LOC: LAB.DROPOF 06-15 11:47
PROVIDERS: PCP Nurse Practitioner Family; Visit Provider Nurse Practitioner Family
DX: E11.69 Type 2 diabetes mellitus with other specified complication (principal)
CPT/HCPCS: 81001; 82043; 82570; 87086; 87088; 87186

== ENCOUNTER 2024-07-04 16:26 | Outpatient (CLI) | payer MEDICAID, SELFPAY ==
[2024-07-04 13:21] LABS: Microscopic, Urine URINE MICROSCOPIC (MICROSCOPIC)
[2024-07-04 13:36] LABS: Appearance,Urine CLEAR (Clear); Bilirubin,Urine Negative (Negative); Blood, Urine Negative (Negative); Color,Urine YELLOW (Yellow); Glucose,Urine (UA) Negative (Negative); Ketones,Urine Negative (Negative); Leukocyte Esterase,Urine Negative (Negative); Nitrate,Urine Negative (Negative); Protein,Urine Negative (Negative); Specific Gravity, Urine 1.025 (1.005-1.030); Urobilinogen,Urine 0.2 EU/dl (0.2)
== END 2024-07-04 23:59 | disposition home or self-care (01) ==
LOC: LAB.DROPOF 16:26
PROVIDERS: PCP Nurse Practitioner Family; Visit Provider Nurse Practitioner Family
DX: N39.0 Urinary tract infection, site not specified (principal); R31.9 Hematuria, unspecified
CPT/HCPCS: 81001; 87086

== ENCOUNTER 2024-07-11 13:47 | Outpatient (CLI) | payer MEDICAID, SELFPAY ==
[2024-07-11 14:12] LABS: Alanine Aminotransferase 36 U/L (12-78); Albumin Level 3.8 g/dl (3.5-5.0); Albumin/Globulin Ratio 1.7 (1.1-1.8); Alkaline Phosphatase 73 U/L (38-126); Anion Gap 10.1 mEq/L (5-15); Aspartate Amino Transferase 34 U/L (14-36); Bilirubin,Total 0.6 mg/dl (0.2-1.3); Blood Urea Nitrogen 22 mg/dl (7-17); Calcium 9.2 mg/dl (8.4-10.2); Carbon Dioxide 30 mmol/L (22.0-30.0); Chloride 104 mmol/L (98-107); Estimated Glomerular Filt Rate 56 ml/min (>60); GFR (African American) 68 ML/MIN (>60); Globulin 2.2 g/dL (1.3-3.2); Glucose 96 mg/dl (74-100); Potassium 4.1 mmoL/L (3.5-5.1); Sodium 140 mmol/L (136-145)
== END 2024-07-11 23:59 | disposition home or self-care (01) ==
LOC: LAB.DROPOF 13:47
PROVIDERS: PCP Nurse Practitioner Family; Visit Provider Nurse Practitioner Family
DX: E87.6 Hypokalemia (principal); E11.69 Type 2 diabetes mellitus with other specified complication
CPT/HCPCS: 80053

== ENCOUNTER 2024-07-30 13:31 | Emergency (ER) | payer MEDICAID, SELFPAY ==
[2024-07-30 13:31] VITALS: BP 129/76; BP 140/82; PULSE 81; PULSE 89; RESP 18; TEMP 36.8; O2SAT 96; O2SAT 98; BMI 35.9
--- NOTE | 2024-07-30 13:35 | XR_ITS ---
PROCEDURE INFORMATION: Exam: XR Right Knee Exam date and time: 07/30/2024 1:32 PM Age: 64 years old Clinical indication: Injury or trauma; Fall; Blunt trauma; Knee; Right; Additional info: Fall, injury TECHNIQUE: Imaging protocol: Radiologic exam of the right knee. Views: 3 views. COMPARISON: CR XR KNEE RT 4V 09/10/2021 10:08 AM FINDINGS: Bones/joints: There are mild degenerative changes involving the medial knee compartment with mild joint space narrowing and subchondral sclerosis. There is a degenerative spur arising the superior pole of the patella. Remaining joint surfaces are preserved. There is no fracture or malalignment. Soft tissues: Normal. There is no joint effusion. IMPRESSION: Mild degenerative changes medial knee compartment. No acute bony abnormalities.
--- NOTE | 2024-07-30 13:36 | PC.NURSE ---
Dr. Sotomayor at bedside
--- NOTE | 2024-07-30 13:40 | PC.NURSE ---
XR AT BEDSIDE
[2024-07-30] MEDS: ACETAMINOPHEN 500MG TAB 1000 MG PO (13:56)
--- NOTE | 2024-07-30 14:22 | HMH.EDGENADL ---
Discharge Plan Disposition Patient Disposition: Home, Self-Care Prescriptions Prescriptions: No Action atorvastatin 10 mg tablet 10 mg PO HS neomycin-polymyxin B-dexameth 3.5mg/mL-10,000 unit/mL-0.1 % drops,suspension 1 drp Eye-Left QID Patient Comments: INSTILL ONE DROP IN THE LEFT EYE FOUR TIMES DAILY FOR FOUR DAYS fluticasone propionate 50 mcg/actuation spray,suspension 1 spray intranasal DAILY Rx Instructions: administer into each nostril polyethylene glycol 3350 [Miralax] 17 gram/dose powder 17 g PO DAILY Qty: 510 11RF Rx Instructions: Mix in 8 ounces of fluid before administration. Metamucil 3.4 gram/5.4 gram powder 1 tbsp PO DAILY Qty: 660 11RF Rx Instructions: mix into at least 8 oz of water or juice before administering ciprofloxacin HCl [Cipro] 500 mg tablet 500 mg PO BID 7 Days Qty: 14 0RF furosemide 20 mg tablet 20 mg PO BID PRN (Reason: edema) Qty: 90 1RF montelukast 10 mg tablet 10 mg PO DAILY 90 Days Qty: 90 1RF Trintellix 20 mg tablet 20 mg PO DAILY Qty: 90 1RF aspirin 81 mg tablet,delayed release (DR/EC) 81 mg PO DAILY hydrochlorothiazide 25 mg tablet 25 mg PO .COMPLEX Rx Instructions: 25 mg orally daily in the morning; loratadine 10 mg tablet 10 mg PO DAILY losartan 25 mg tablet 25 mg PO DAILY meloxicam 7.5 mg tablet 7.5 mg PO .COMPLEX Rx Instructions: 7.5 mg orally for pain; take with food; Myrbetriq 25 mg tablet extended release 24 hr 25 mg PO DAILY pantoprazole 40 mg tablet,delayed release (DR/EC) 40 mg PO DAILY pyridostigmine bromide 60 mg tablet 60 mg PO BID ascorbic acid (vitamin C) 1,000 mg capsule 1 g PO BID 90 Days Qty: 180 3RF simethicone [Gas Relief (simethicone)] 125 mg capsule 125 mg PO BID PRN (Reason: abdominal distention) Qty: 180 1RF diphenhydramine HCl [Benadryl Allergy] 25 mg tablet 25 mg PO BID PRN (Reason: allergic reaction) 90 Days Qty: 180 1RF potassium chloride 10 mEq tablet,ER particles/crystals 30 meq PO DAILY Qty: 90 2RF (DME) OneTouch Verio test strips Strip See Rx Instructions .ROUTE .COMPLEX Qty: 100 12RF Dose Instruction: USE TO TEST BLOOD GLUCOSE LEVEL THREE TIMES DAILY Rx Instructions: USE TO TEST BLOOD GLUCOSE LEVEL THREE TIMES DAILY (DME) lancets [OneTouch Delica Plus Lancet] 33 gauge misc See Rx Instructions .ROUTE .COMPLEX Qty: 100 11RF Dose Instruction: USE TO test blood sugar TWICE DAILY OR DIRECTED Rx Instructions: USE TO test blood sugar TWICE DAILY OR DIRECTED cholecalciferol (vitamin D3) 50 mcg (2,000 unit) capsule 50 mcg PO DAILY Qty: 90 3RF Ultra CoQ10 75 mg capsule 75 mg PO DAILY Qty: 90 3RF gabapentin 300 mg capsule See Rx Instructions .ROUTE .COMPLEX Qty: 120 1RF Dose Instruction: TAKE ONE CAPSULE BY MOUTH FOUR TIMES DAILY NEEDED MAY CAUSE DROWSINESS Rx Instructions: TAKE ONE CAPSULE BY MOUTH FOUR TIMES DAILY NEEDED MAY CAUSE DROWSINESS Referrals Follow up/Referrals: Damir León DO [Staff Physician] - See instructions Activity Restrictions/Add. Instructions Additional Instructions/Restrictions: No evidence of fracture or dislocation on your x-ray today. Please follow-up with our orthopedic surgeon Dr. León if you continue to have symptoms beyond 1 to 2 weeks for evaluation of ligamental injury. Clinical Impressions Clinical Impression: Abrasion, right knee, initial encounter, Fall Print Language Print Language: Kosovan Discharge ED Provider: Chanda Sotomayor General Adult HPI General Chief complaint: Fall Stated complaint: fall, neck pain &knee pain, no loc Time Seen by Provider: 07/30/24 13:32 Mode of Arrival: EMS Source of Information: Patient, EMS and Medical Record Limitations: No Limitations Description of Symptoms (Recalled from ER Triage Doc. by RN): Pt brought by EMS with concerns of pain after falling on a flat metal grate from standing. Denies any LOC. Pt c/o pain to R knee and R elbow. States she doesn't think she hitting her head, but once in the ambulance truck began to c/o pain to back of head and neck. EMS placed her in a c-collar. She is not on blood thinners. History of Present Illness HPI narrative: Patient is a 64-year-old who presents today after falling mechanically and landing directly onto her right knee and elbow. Initially had some right elbow pain but denies any elbow pain at this point. Denies any head or neck pain but was placed in a c-collar. Not on any anticoagulants or antiplatelets only complains of right knee pain and abrasion at this point Related Data Home Medications ?Medication ?Instructions ?Recorded ?Confirmed atorvastatin 10 mg tablet 10 mg PO HS 03/28/24 07/18/24 fluticasone propionate 50 1 spray intranasal DAILY 05/30/24 07/18/24 mcg/actuation nasal spray,suspension [id number] 3.5 1 drp Eye-Left QID 05/30/24 07/18/24 mg/mL-10,000 unit/mL-0.1% eye drops aspirin 81 mg tablet,delayed 81 mg PO DAILY 06/14/24 07/18/24 release hydrochlorothiazide 25 mg tablet 25 mg PO .COMPLEX 06/14/24 07/18/24 loratadine 10 mg tablet 10 mg PO DAILY 06/14/24 07/18/24 losartan 25 mg tablet 25 mg PO DAILY 06/14/24 07/18/24 meloxicam 7.5 mg tablet 7.5 mg PO .COMPLEX 06/14/24 07/18/24 mirabegron 25 mg tablet,extended 25 mg PO DAILY 06/14/24 07/18/24 release 24 hr (Myrbetriq) pantoprazole 40 mg tablet,delayed 40 mg PO DAILY 06/14/24 07/18/24 release pyridostigmine bromide 60 mg tablet 60 mg PO BID 06/14/24 07/18/24 Previous Rx's ?Medication ?Instructions ?Recorded blood sugar diagnostic ([employer] #100 strips 11/27/21 Verio test strips) lancets 33 gauge (OneTouch Delica ##100 03/05/22 Plus Lancet) montelukast 10 mg tablet 10 mg PO DAILY 90 days #90 tabs 05/25/23 vortioxetine 20 mg tablet 20 mg PO DAILY #90 tabs 01/18/24 (Trintellix) cholecalciferol (vitamin D3) 50 50 mcg PO DAILY #90 caps 02/08/24 mcg (2,000 unit) capsule coenzyme Q10 75 mg capsule (Ultra 75 mg PO DAILY #90 caps 02/08/24 CoQ10) ascorbic acid (vitamin C) 1,000 mg 1 g PO BID 90 days #180 caps 06/14/24 capsule diphenhydramine HCl 25 mg tablet 25 mg PO BID PRN allergic reaction 06/14/24 (Benadryl Allergy) 90 days #180 tabs polyethylene glycol 3350 17 17 g PO DAILY #510 grams 06/14/24 gram/dose oral powder (Miralax) potassium chloride 10 mEq 30 meq (3 x 10 mEq) PO DAILY #90 06/14/24 tablet,extended release(part/cryst) tabs psyllium husk 3.4 gram/5.4 gram 1 tbsp PO DAILY #660 grams 06/14/24 oral powder (Metamucil) simethicone 125 mg capsule (Gas 125 mg PO BID PRN abdominal 06/14/24 Relief (simethicone)) distention #180 caps gabapentin 300 mg capsule See Rx Instructions .Route 07/05/24 .COMPLEX #120 caps ciprofloxacin HCl 500 mg tablet 500 mg PO BID 7 days #14 tabs 07/11/24 (Cipro) furosemide 20 mg tablet 20 mg PO BID PRN edema #90 tabs 07/11/24 Allergies Allergy/AdvReac Type Severity Reaction Status Date / Time hydrocodone Allergy Intermediate Nausea Verified 07/18/24 14:39 SERGIO Inhibitors (SERGIO Allergy Unknown ANGIOEDEMA Verified 07/18/24 14:39 INHIBITORS) cephalexin (CEPHALEXIN) Allergy Unknown NA-NAUSEA/V Verified 07/18/24 14:39 OMITING clarithromycin (From BIAXIN) Allergy Unknown I-RASH Verified 07/18/24 14:39 codeine (CODEINE) Allergy Unknown NA-NAUSEA/V Verified 07/18/24 14:39 OMITING/ELIGIO H colesevelam (From WELCHOL) Allergy Unknown I-RASH Verified 07/18/24 14:39 doxycycline (DOXYCYCLINE) Allergy Unknown I-HIVES Verified 07/18/24 14:39 Iodinated Contrast Media Allergy Unknown S-ANAPHYLAX Verified 07/18/24 14:39 (IODINATED CONTRAST MEDIA - IS IV DYE) metoclopramide Allergy Unknown I-RASH Verified 07/18/24 14:39 (METOCLOPRAMIDE) oxycodone (From ROXICET) Allergy Unknown NA-NAUSEA Verified 07/18/24 14:39 Penicillins (PENICILLINS) Allergy Unknown I-HIVES Verified 07/18/24 14:39 pentazocine (PENTAZOCINE) Allergy Unknown NA-NAUSEA/V Verified 07/18/24 14:39 OMITING prednisone (PREDNISONE) Allergy Unknown I-HIVES/N/V Verified 07/18/24 14:39 pregabalin (PREGABALIN) Allergy Unknown I-RASH Verified 07/18/24 14:39 senna (SENNA) Allergy Unknown ITCHING Verified 07/18/24 14:39 topiramate (From TOPAMAX) Allergy Unknown CONFUSION Verified 07/18/24 14:39 tramadol (TRAMADOL) Allergy Unknown ITCHING Verified 07/18/24 14:39 zolmitriptan (From ZOMIG) Allergy Unknown I-HIVES Verified 07/18/24 14:39 rizatriptan (From Maxalt) Allergy Verified 07/18/24 14:39 Opioids - Morphine Analogues AdvReac Verified 07/18/24 14:39 penicillin Allergy Intermediate hives Uncoded 07/11/24 11:22 JOSEPH PEPPER Allergy Unknown I-RASH Uncoded 07/11/24 11:22 TAPE Allergy Unknown I-RASH Uncoded 07/11/24 11:22 PFSH PFS Disclaimer: The information contained in this section may have been updated after the patient was seen, as this information can be updated by other users. Medical History Edema of both lower extremities Foot pain, left Asthma Dyspnea on exertion Generalized anxiety disorder Allergic rhinitis Encounter for screening for malignant neoplasm of lung in current smoker with 30 pack year history or greater Smoking greater than 30 pack years Seasonal allergies Mild asthma Neuropathy of left lower extremity Chronic abdominal pain Ex-smoker Abnormal stress test Atypical angina COPD (chronic obstructive pulmonary disease) Generalized muscle ache Decreased circulation Cervical radiculopathy Dyspnea Urinary incontinence Decreased mobility Frequent falls SOB (shortness of breath) Palpitations HLD (hyperlipidemia) Migraines Urinary, incontinence, stress female Vitamin D deficiency Hypertension Surgical History History of hemorrhoidectomy History of bladder suspension procedure History of laryngoscopy History of splenectomy History of vocal cord polypectomy Family History Other No significant family history Social History Smoking Status: Former smoker tobacco type: cigarettes alcohol intake: never substance use type: denies use current occupational status: disabled Travel in the last 8 weeks: None household members: family housing: house number of children: 2 caffeine: No Have you lived/traveled outside [place] in past 30 days?: No Contact w/someone who lives/traveled outside US past 30 days?: No Exposure to someone with infectious disease in past 14 days?: No Do you have a fever (greater than 100.4 F or 38 C)?: No Have you tested positive for COVID-19: No Exposed to someone with COVID-19 in past 14 days?: No Do you have a sore throat?: No Do you have a cough?: No Do you have any weakness?: No Do you have any diarrhea?: No Are you experiencing any unusual bleeding?: No Do you have any muscle aches/pain?: No Do you have any abdominal pain?: No Are you experiencing loss of taste or smell?: No Other Medical History Have you received the Flu Vaccine for this season: Yes Have you received the Pneumonia Vaccine: No ROS Obtained: Yes All systems reviewed & no additional complaints except as documented Physical Exam General General appearance: alert and in no apparent distress Head Head exam: atraumatic and normocephalic Respiratory Respiratory exam: Present normal lung sounds bilaterally; Absent respiratory distress Cardiovascular Cardiovascular exam: Present regular rate; Absent normal rhythm Abdominal Exam Abdominal exam: Present soft; Absent distention or tenderness Extremities Exam Extremities exam: Present other (Right elbow full range of motion no evidence of external trauma or soft tissue abnormalities there is some abrasions over the right anterior patellar region but normal range of motion no significant effusion clinically neurovascular intact) Neurological Exam Neurological exam: Present alert and oriented X3 Medical Decision Making Medical Records Screening: Per USPSTF and CDC recommendations, given the prevalence of disease in our region, it is our hospital?s policy to screen for HIV and viral Hepatitis for all patients aged 18 and over and those with ongoing risk factors. Roland Inquiry Pt receiving controlled substance: No Vital Signs: 07/30/24 13:31 07/30/24 13:31 Temperature 98.2 F Temperature Source Oral Pulse Rate 81 Pulse Rate [Right] 89 Respiratory Rate 18 Blood Pressure 129/76 Blood Pressure [Right Arm] 140/82 Blood Pressure Mean [Right Arm] 101 Blood Pressure Source [Right Arm] Automatic Cuff 02 Sat by Pulse Oximetry 98 96 Oxygen Delivery Method Room Air Orders (Tests/Meds): ED MEDICATIONS Discontinued Medications Generic Name Dose Route Start Last Admin Trade Name Jacob PRN Reason Stop Dose Admin Acetaminophen 1,000 mg 07/30/24 13:35 07/30/24 13:56 Acetaminophen 500mg Tab PO 07/30/24 13:36 1,000 mg ONCE ONE Administration ORDERS Category Date Time Status Knee XR right 3 views [XR knee RT 3V] Stat Exams 07/30/24 13:35 Taken Medical Decision Narrative: 64-year-old with above history and physical she is Guyanese CT head negative and Nexus negative C collar was cleared. No indication for CT imaging of her head or cervical spine. She has a normal exam on her right elbow. Right knee there is some abrasions and tenderness and x-ray was performed to rule out fracture dislocation which I personally interpreted I do not see any fractures or dislocations she was able to ambulate without difficulty she will follow-up with Dr. León if she continues to have symptoms to rule out ligamental injury. Supportive care discussed return precautions emphasized she was discharged in stable condition Critical Care Critical Care Time Critical Care Time: No
[2024-07-30 14:46] VITALS: BP 129/76; PULSE 80; RESP 20; TEMP 36.8; O2SAT 93
== END 2024-07-30 14:47 | disposition home or self-care (01) ==
PROVIDERS: Emergency Provider Student in an Organized Health Care Education/Training Program; PCP Internal Medicine
DX: S80.211A Abrasion, right knee, initial encounter (principal); M25.561 Pain in right knee; M25.521 Pain in right elbow; W18.30XA Fall on same level, unspecified, initial encounter; Y93.89 Activity, other specified; Y92.9 Unspecified place or not applicable
CPT/HCPCS: 73562; 99283

== ENCOUNTER 2024-08-23 15:31 | Outpatient (CLI) | payer MEDICAID, SELFPAY ==
[2024-08-23 16:31] LABS: Basophils % 0.3 % (0.1-2.0); Eosinophils # 0.1 K/mm3 (0.0-0.4); Eosinophils % 1.9 % (0.1-12.0); Hematocrit 45.3 % (37.0-47.0); Hemoglobin 14.7 g/dL (12.2-16.2); Lymphocytes # 1.5 K/mm3 (0.7-4.5); Lymphocytes % 22.9 % (10-50); Mean Corpuscular HGB Conc 32.5 g/dL (31.8-35.4); Mean Corpuscular Hemoglobin 30.6 pg (27.0-31.2); Mean Corpuscular Volume 94.4 fl (81-99); Monocytes # 0.6 K/mm3 (0.1-1.0); Monocytes % 9.7 % (1.7-9.3); Neutrophils # 4.2 K/mm3 (1.8-7.8); Platelet Count 242 K/mm3 (142-424); Red Cell Distribution Width 12.5 % (11.5-17.5); White Blood Count 6.4 K/mm3 (4.8-10.8)
[2024-08-23 17:12] LABS: Albumin Level 3.9 g/dl (3.5-5.0); Chloride 97 mmol/L (98-107); Potassium 3.2 mmoL/L (3.5-5.1); Sodium 140 mmol/L (136-145)
[2024-08-23 17:14] LABS: Bilirubin,Unconjugated 0.4 mg/dL (0.0-1.1); Blood Urea Nitrogen 17 mg/dl (7-17); Estimated Glomerular Filt Rate 56 ml/min (>60); GFR (African American) 68 ML/MIN (>60)
[2024-08-23 17:15] LABS: Alanine Aminotransferase 46 U/L (12-78); Alkaline Phosphatase 88 U/L (38-126); Anion Gap 10.2 mEq/L (5-15); Aspartate Amino Transferase 36 U/L (14-36); Bilirubin,Direct 0.2 mg/dl (0.0-0.4); Bilirubin,Indirect 0.4 mg/dL (0.0-0.9); Bilirubin,Total 0.6 mg/dl (0.2-1.3); Calcium 9.1 mg/dl (8.4-10.2); Carbon Dioxide 36 mmol/L (22.0-30.0); Cholesterol 163 mg/dl (140-200); Glucose 79 mg/dl (74-100); Total Protein,Serum 6.4 g/dl (6.3-8.2); Triglycerides 231 mg/dl (30-150); VLDL Cholesterol 46 mg/dL (0-40)
[2024-08-23 17:16] LABS: Chol/HDL Ratio 3.6 (1-3.5); HDL Cholesterol 45 mg/dl (40-60)
[2024-08-23 17:26] LABS: Direct LDL Cholesterol 83.63 mg/dL (100-129)
[2024-08-23 17:30] LABS: Free T4 (Free Thyroxine) 1.18 ng/dl (0.78-2.19)
[2024-08-23 17:46] LABS: Thyroid Stimulating Hormone 2.14 uIU/mL (0.465-4.68)
== END 2024-08-23 23:59 | disposition home or self-care (01) ==
LOC: LAB 15:34
PROVIDERS: Visit Provider Nurse Practitioner Family
DX: E87.6 Hypokalemia (principal); E53.8 Deficiency of other specified B group vitamins; E54 Ascorbic acid deficiency; E16.2 Hypoglycemia, unspecified; R53.83 Other fatigue; E66.9 Obesity, unspecified; E78.2 Mixed hyperlipidemia; I10 Essential (primary) hypertension; Z68.30 Body mass index [BMI] 30.0-30.9, adult
CPT/HCPCS: 36415; 80048; 80061; 80076; 84439; 84443; 85025

== ENCOUNTER 2024-09-01 15:26 | Outpatient (CLI) | payer MEDICAID, SELFPAY ==
--- NOTE | 2024-09-01 15:30 | XR_ITS ---
FINAL REPORT CLINICAL HISTORY: Right hip pain post fall on 07/30/24 COMPARISON: None FINDINGS: RIGHT HIP Two views of the right hip with an AP view of the pelvis demonstrate no acute fracture or dislocation. The joint spaces are preserved. The femoral heads have normal smooth contours. The visualized bony structures are well aligned. There is a stimulator device in the superior left gluteal region. IMPRESSION: No acute bony abnormality. Reviewed, Interpreted and Dictated by Andi Parikh MD Transcribed by Farrah Salinas Authenticated and [facility]
== END 2024-09-01 23:59 | disposition home or self-care (01) ==
LOC: RAD 15:28
PROVIDERS: PCP Nurse Practitioner Family; Visit Provider Nurse Practitioner Family
DX: M25.551 Pain in right hip (principal)
CPT/HCPCS: 73502

== ENCOUNTER 2025-01-15 10:34 | Outpatient (RCR) | payer MEDICAID, SELFPAY ==
--- NOTE | 2025-01-15 14:40 | HMH.PTOPEV ---
PT Outpatient Evaluation Rehab PT Outpatient Evaluation Start: 01/15/25 10:46 Freq: Status: Active Protocol: Document 01/15/25 10:47 RICARDO (Rec: 01/15/25 14:39 RICARDO [id number]) E-signed By Dayron Guzmán, PT Outpatient Therapy Subjective History Subjective History Pt presents for wheelchair evaluation. Pt has had a power wheelchair for at least 5 years. Reports that she is able to walk very short distances in the house but is unable to walk at all outside of the home. Reports a recent fall on her R knee approximately 6 months ago. Pt reports that she uses a cane or a walker when she is walking in the home. Pt reports that she lives with her . She reports she can only stand for ~ 10 minutes at at time. New diagnosis of No cancer in past 12 months? Miscellaneous Dx PT Eval Objective Objective 5xSTS: 18s Min-Mod A for all transfers. Automatic Cigar Wrapper Tender Strength: R 24 kg, L 21 kg Outpatient Therapy Assessment Impairments Problems/ Impaired Strength,Impaired Walking,Impaired Standing, Impairmments Impaired Household Care Prognosis Rehab Potential Innapropriate for Skilled Therapy Comment Pt would benefit from the use of a power wheel chair. Clinical Impression Consistent with Yes Diagnosis Consistent with Impaired Mobility Outpatient Therapy Plan of Care Treatment Plan May Include ADL/Self Care Yes Education Frequency Times per week 1 Duration Number of Weeks 1 Addendums This patient is a No candidate for social or vocational rehab ? Patient/Guardian Yes verbally acknowledges understanding of treatment program and consents to further treatment? Patient/Guardian Yes verbally acknowledges understanding of diagnosis, prognosis and goals for treatment? Eval Complexity PT Charges 67872 - High Complexity Shoulder/Elbow Eval Shoulder Objective Measurements Elbow Objective Measurements PHYSICIAN CERTIFICATION: I certify the specified therapy services for Gardenia Morales are required, authorized, and reviewed every 30 days.
== END 2025-01-15 23:59 | disposition home or self-care (01) ==
LOC: PT 10:34
PROVIDERS: PCP Nurse Practitioner Family; Visit Provider Nurse Practitioner Family
DX: R26.89 Other abnormalities of gait and mobility (principal); G62.9 Polyneuropathy, unspecified; M54.50 Low back pain, unspecified
CPT/HCPCS: 97163

== ENCOUNTER 2025-03-09 10:22 | Outpatient (CLI) | payer MEDICAID, SELFPAY ==
--- OUTSIDE RECORDS SUMMARY | 2025-03-09 10:28 | XMS_ITS | Clinical Summary ---
Author Organization [employer] [facility] are Address [address] [place] [id number] Phone Care Team Providers Care Railroad Detective Name Role Phone Unavailable Unavailable Conditions or Problems No information available. Medications No information available. Medications Administered No information available. Allergies, Adverse Reactions, Alerts No information available. Results No information available. Plan of Care No information available. Procedures No information available. Vital Signs No information available. Immunizations No information available. Advance Directives No information available.
--- NOTE | 2025-03-09 10:30 | XR_ITS ---
FINAL REPORT CLINICAL HISTORY: SPINAL STENOSIS COMPARISON: Thoracic spine x-ray dated 05/10/2024 FINDINGS: CERVICAL SPINE 4 views of the cervical spine were obtained. There is no acute fracture. There is no malalignment. The vertebrae are normal in height. The disc spaces are preserved. There is mild anterior osteophyte at the C6-7 level. Spinal stimulator leads are noted within the cervical spinal canal. IMPRESSION: Degenerative changes without acute process. THORACIC SPINE 3 views of the thoracic spine were obtained. There is no acute fracture. There is no malalignment. The vertebrae are normal in height. The disc spaces are preserved. There is mild anterior osteophyte formation in the mid and lower thoracic spine vertebrae. Spinal stimulator leads are noted in the lower thoracic spinal canal. IMPRESSION: Degenerative changes without acute process. LUMBAR SPINE 3 views of the lumbar spine were obtained. There is no acute fracture. There is no malalignment. The vertebrae are normal in height. The disc spaces are preserved. Mild anterior osteophyte formation is noted at T11-12 and T12-L1. There is moderate facet sclerosis of the lower lumbar spine. IMPRESSION: Degenerative changes without acute process. Reviewed, Interpreted and Dictated by Andi Parikh MD Transcribed by Hanh Song Authenticated and [facility]
== END 2025-03-09 23:59 | disposition home or self-care (01) ==
LOC: RAD 10:24
PROVIDERS: PCP Nurse Practitioner Family; Visit Provider Physical Medicine & Rehabilitation
DX: M47.814 Spondylosis without myelopathy or radiculopathy, thoracic region (principal); M47.816 Spondylosis without myelopathy or radiculopathy, lumbar region; M99.53 Intervertebral disc stenosis of neural canal of lumbar region; M48.061 Spinal stenosis, lumbar region without neurogenic claudication
CPT/HCPCS: 72084

== ENCOUNTER 2025-04-12 10:18 | Emergency (ER) | payer MEDICAID, SELFPAY ==
[2025-04-12] VITALS (7 sets, daily range): BP systolic 88–139; BP diastolic 50–87; PULSE 80–98; RESP 18–20; TEMP 36.6–36.7; O2SAT 93–99; BMI 29.0
--- OUTSIDE RECORDS SUMMARY | 2025-04-12 10:54 | XMS_ITS | Clinical Summary ---
Author Organization [employer] [facility] are Address [address] [place] [id number] Phone Care Team Providers Care Talent Acquisition Assistant Name Role Phone Unavailable Unavailable Conditions or Problems No information available. Medications No information available. Medications Administered No information available. Allergies, Adverse Reactions, Alerts No information available. Results No information available. Plan of Care No information available. Procedures No information available. Vital Signs No information available. Immunizations No information available. Advance Directives No information available.
--- NOTE | 2025-04-12 12:52 | CT_ITS ---
FINAL REPORT TECHNIQUE: Thin section axial images were obtained from skull base to vertex without contrast. Coronal reconstruction images were obtained from the axial data. Exam was performed using dose reduction techniques such as automated exposure control, adjustment of the mA and kV according to patient size, and use of iterative reconstruction technique. CLINICAL HISTORY: Headache COMPARISON: 11/14/2019 FINDINGS: There is no mass effect or midline shift. There is no hydrocephalus. There is no intracranial hemorrhage. The posterior fossa is without acute abnormality. The basilar cisterns are preserved. The soft tissues are without acute abnormality. No acute osseous abnormality is identified. IMPRESSION: No acute intracranial abnormality. Reviewed, Interpreted and Dictated by Amina Solis MD Transcribed by Hanh Song Authenticated and [facility]
--- NOTE | 2025-04-12 12:57 | [facility].EDGENADL ---
Discharge Plan Disposition Chief Complaint: Headache Prescriptions Prescriptions: No Action neomycin-polymyxin B-dexameth 3.5mg/mL-10,000 unit/mL-0.1 % drops,suspension 1 drp Eye-Left QID Patient Comments: INSTILL ONE DROP IN THE LEFT EYE FOUR TIMES DAILY FOR FOUR DAYS fluticasone propionate 50 mcg/actuation spray,suspension 1 spray intranasal DAILY Rx Instructions: administer into each nostril polyethylene glycol 3350 [Miralax] 17 gram/dose powder 17 g PO DAILY Qty: 510 11RF Rx Instructions: Mix in 8 ounces of fluid before administration. Metamucil 3.4 gram/5.4 gram powder 1 tbsp PO DAILY Qty: 660 11RF Rx Instructions: mix into at least 8 oz of water or juice before administering duloxetine 30 mg capsule,delayed release(DR/EC) 30 mg PO DAILY 30 Days Qty: 30 2RF Rx Instructions: take at bedtime duloxetine 60 mg capsule,delayed release(DR/EC) 60 mg PO DAILY 30 Days Qty: 30 1RF pyridostigmine bromide 60 mg tablet 60 mg PO BID diphenhydramine HCl [Benadryl Allergy] 25 mg tablet 25 mg PO BID PRN (Reason: allergic reaction) 90 Days Qty: 180 1RF ascorbic acid (vitamin C) 1,000 mg tablet 1,000 mg PO DAILY Patient Comments: TAKE ONE TABLET BY MOUTH TWICE DAILY (DME) OneTouch Verio test strips Strip See Rx Instructions .ROUTE .COMPLEX Qty: 100 12RF Dose Instruction: USE TO TEST BLOOD GLUCOSE LEVEL THREE TIMES DAILY Rx Instructions: USE TO TEST BLOOD GLUCOSE LEVEL THREE TIMES DAILY (DME) lancets [OneTouch Delica Plus Lancet] 33 gauge misc See Rx Instructions .ROUTE .COMPLEX Qty: 100 11RF Dose Instruction: USE TO test blood sugar TWICE DAILY OR DIRECTED Rx Instructions: USE TO test blood sugar TWICE DAILY OR DIRECTED cholecalciferol (vitamin D3) 50 mcg (2,000 unit) capsule 50 mcg PO DAILY Qty: 90 3RF Ultra CoQ10 75 mg capsule 75 mg PO DAILY Qty: 90 3RF simethicone 125 mg tablet,chewable See Rx Instructions .ROUTE .COMPLEX Qty: 180 1RF Dose Instruction: CHEW ONE TABLET BY MOUTH TWICE DAILY NEEDED FOR ABDOMINAL DISTENTION Rx Instructions: CHEW ONE TABLET BY MOUTH TWICE DAILY NEEDED FOR ABDOMINAL DISTENTION urea 40 % cream See Rx Instructions .ROUTE .COMPLEX Qty: 28.35 3RF Dose Instruction: APPLY TOPICALLY TO THE AFFECTED AREA(S) TWICE DAILY Rx Instructions: APPLY TOPICALLY TO THE AFFECTED AREA(S) TWICE DAILY furosemide 20 mg tablet 20 mg PO BID PRN (Reason: edema) Qty: 90 1RF meloxicam 7.5 mg tablet See Rx Instructions .ROUTE .COMPLEX Qty: 30 0RF Dose Instruction: TAKE ONE TABLET BY MOUTH EVERY DAY FOR PAIN --TAKE WITH FOOD-- Rx Instructions: TAKE ONE TABLET BY MOUTH EVERY DAY FOR PAIN --TAKE WITH FOOD-- pantoprazole 40 mg tablet,delayed release (DR/EC) See Rx Instructions .ROUTE .COMPLEX Qty: 30 0RF Dose Instruction: TAKE ONE TABLET BY MOUTH EVERY MORNING Rx Instructions: TAKE ONE TABLET BY MOUTH EVERY MORNING losartan 25 mg tablet See Rx Instructions .ROUTE .COMPLEX Qty: 30 0RF Dose Instruction: TAKE ONE TABLET BY MOUTH EVERY DAY FOR BLOOD PRESSURE Rx Instructions: TAKE ONE TABLET BY MOUTH EVERY DAY FOR BLOOD PRESSURE loratadine 10 mg tablet See Rx Instructions .ROUTE .COMPLEX Qty: 30 0RF Dose Instruction: TAKE ONE TABLET BY MOUTH EVERY DAY IN THE MORNING Rx Instructions: TAKE ONE TABLET BY MOUTH EVERY DAY IN THE MORNING aspirin 81 mg tablet,delayed release (DR/EC) See Rx Instructions .ROUTE .COMPLEX Qty: 30 0RF Dose Instruction: TAKE ONE TABLET BY MOUTH EVERY DAY Rx Instructions: TAKE ONE TABLET BY MOUTH EVERY DAY Myrbetriq 25 mg tablet extended release 24 hr See Rx Instructions .ROUTE .COMPLEX Qty: 30 0RF Dose Instruction: TAKE ONE TABLET BY MOUTH EVERY DAY Rx Instructions: TAKE ONE TABLET BY MOUTH EVERY DAY potassium chloride 10 mEq tablet extended release See Rx Instructions .ROUTE .COMPLEX Qty: 180 0RF Dose Instruction: TAKE THREE TABLETS BY MOUTH EVERY DAY Rx Instructions: TAKE THREE TABLETS BY MOUTH EVERY DAY montelukast 10 mg tablet See Rx Instructions .ROUTE .COMPLEX Qty: 60 0RF Dose Instruction: TAKE ONE TABLET BY MOUTH EVERY DAY Rx Instructions: TAKE ONE TABLET BY MOUTH EVERY DAY atorvastatin 10 mg tablet See Rx Instructions .ROUTE .COMPLEX Qty: 90 0RF Dose Instruction: TAKE ONE TABLET BY MOUTH EVERY DAY AT BEDTIME Rx Instructions: TAKE ONE TABLET BY MOUTH EVERY DAY AT BEDTIME gabapentin 300 mg capsule See Rx Instructions .ROUTE .COMPLEX Qty: 120 0RF Dose Instruction: TAKE ONE CAPSULE BY MOUTH FOUR TIMES DAILY NEEDED MAY CAUSE DROWSINESS Rx Instructions: TAKE ONE CAPSULE BY MOUTH FOUR TIMES DAILY NEEDED MAY CAUSE DROWSINESS Referrals Follow up/Referrals: Provider,Referral, [Primary Care Provider, Medical] - See instructions Print Language Print Language: Thai Discharge ED Provider: Dory Saenz General Adult HPI General Chief complaint: Headache Stated complaint: headache, passed out Time Seen by Provider: 04/12/25 12:22 Mode of Arrival: Wheelchair Source of Information: Patient Description of Symptoms (Recalled from ER Triage Doc. by RN): Patient states she has had a headache since 1700 yesterday afternoon. Patient states she has a history of migraines and takes medication for them but that this feels different than her regular headaches. States that the last time she felt like this she passed out while she was driving States that this happened over a month ago. History of Present Illness HPI narrative: Patient is a 64-year-old a past medical history significant for migraines, hypertension, diabetes, neuropathy, presents to the emergency department with headache. Patient has headaches frequently and receives Botox and follows with neurology for symptoms. Patient last had Botox 1 week ago. Patient said that yesterday evening she developed a headache 7 out of 10 frontal in nature feeling like a stabbing pressure different from her prior migraines. Patient had an episode a year ago with a similar type of headache and she passed out while driving so wanted to come in to get checked out. After patient went to bed last night she had improvement of her headache. Has not taken any medications for symptoms at this time. Has chronic numbness and tingling in her bilateral upper and lower extremities consistent with neuropathy but no new sensory changes or weakness. No visual changes. No fever or chills. Related Data Home Medications ?Medication ?Instructions ?Recorded ?Confirmed fluticasone propionate 50 1 spray intranasal DAILY 05/30/24 04/12/25 mcg/actuation nasal spray,suspension [id number] 3.5 1 drp Eye-Left QID 05/30/24 04/12/25 mg/mL-10,000 unit/mL-0.1% eye drops pyridostigmine bromide 60 mg tablet 60 mg PO BID 06/14/24 04/12/25 ascorbic acid (vitamin C) 1,000 mg 1,000 mg PO DAILY 02/15/25 04/12/25 tablet Previous Rx's ?Medication ?Instructions ?Recorded blood sugar diagnostic (ApplaudTouch #100 strips 11/27/21 Verio test strips) lancets 33 gauge (OneTouch Delica ##100 03/05/22 Plus Lancet) cholecalciferol (vitamin D3) 50 50 mcg PO DAILY #90 caps 02/08/24 mcg (2,000 unit) capsule coenzyme Q10 75 mg capsule (Ultra 75 mg PO DAILY #90 caps 02/08/24 CoQ10) diphenhydramine HCl 25 mg tablet 25 mg PO BID PRN allergic reaction 06/14/24 (Benadryl Allergy) 90 days #180 tabs polyethylene glycol 3350 17 17 g PO DAILY #510 grams 06/14/24 gram/dose oral powder (Miralax) psyllium husk 3.4 gram/5.4 gram 1 tbsp PO DAILY #660 grams 06/14/24 oral powder (Metamucil) simethicone 125 mg chewable tablet See Rx Instructions .Route 12/11/24 .COMPLEX #180 ea urea 40 % topical cream See Rx Instructions .Route 12/12/24 .COMPLEX #28.35 grams furosemide 20 mg tablet 20 mg PO BID PRN edema #90 tabs 01/04/25 aspirin 81 mg tablet,delayed See Rx Instructions .Route 02/05/25 release .COMPLEX #30 tabs loratadine 10 mg tablet See Rx Instructions .Route 02/05/25 .COMPLEX #30 tabs losartan 25 mg tablet See Rx Instructions .Route 02/05/25 .COMPLEX #30 tabs meloxicam 7.5 mg tablet See Rx Instructions .Route 02/05/25 .COMPLEX #30 tabs mirabegron 25 mg tablet,extended See Rx Instructions .Route 02/05/25 release 24 hr (Myrbetriq) .COMPLEX #30 tabs pantoprazole 40 mg tablet,delayed See Rx Instructions .Route 02/05/25 release .COMPLEX #30 tabs atorvastatin 10 mg tablet See Rx Instructions .Route 03/02/25 .COMPLEX #90 tabs montelukast 10 mg tablet See Rx Instructions .Route 03/02/25 .COMPLEX #60 tabs potassium chloride 10 mEq See Rx Instructions .Route 03/02/25 tablet,extended release .COMPLEX #180 tabs duloxetine 30 mg capsule,delayed 30 mg PO DAILY 30 days #30 caps 03/28/25 release duloxetine 60 mg capsule,delayed 60 mg PO DAILY 30 days #30 caps 03/28/25 release gabapentin 300 mg capsule See Rx Instructions .Route 03/30/25 .COMPLEX #120 caps Allergies Allergy/AdvReac Type Severity Reaction Status Date / Time hydrocodone Allergy Intermediate Nausea Verified 03/28/25 13:12 SERGIO Inhibitors (SERGIO Allergy Unknown ANGIOEDEMA Verified 03/28/25 13:12 INHIBITORS) cephalexin (CEPHALEXIN) Allergy Unknown NA-NAUSEA/V Verified 03/28/25 13:12 OMITING clarithromycin (From BIAXIN) Allergy Unknown I-RASH Verified 03/28/25 13:12 codeine (CODEINE) Allergy Unknown NA-NAUSEA/V Verified 03/28/25 13:12 OMITING/ELIGIO H colesevelam (From WELCHOL) Allergy Unknown I-RASH Verified 03/28/25 13:12 doxycycline (DOXYCYCLINE) Allergy Unknown I-HIVES Verified 03/28/25 13:12 Iodinated Contrast Media Allergy Unknown S-ANAPHYLAX Verified 03/28/25 13:12 (IODINATED CONTRAST MEDIA - IS IV DYE) metoclopramide Allergy Unknown I-RASH Verified 03/28/25 13:12 (METOCLOPRAMIDE) oxycodone (From ROXICET) Allergy Unknown NA-NAUSEA Verified 03/28/25 13:12 Penicillins (PENICILLINS) Allergy Unknown I-HIVES Verified 03/28/25 13:12 pentazocine (PENTAZOCINE) Allergy Unknown NA-NAUSEA/V Verified 03/28/25 13:12 OMITING prednisone (PREDNISONE) Allergy Unknown I-HIVES/N/V Verified 03/28/25 13:12 pregabalin (PREGABALIN) Allergy Unknown I-RASH Verified 03/28/25 13:12 senna (SENNA) Allergy Unknown ITCHING Verified 03/28/25 13:12 topiramate (From TOPAMAX) Allergy Unknown CONFUSION Verified 03/28/25 13:12 tramadol (TRAMADOL) Allergy Unknown ITCHING Verified 03/28/25 13:12 zolmitriptan (From ZOMIG) Allergy Unknown I-HIVES Verified 03/28/25 13:12 rizatriptan (From Maxalt) Allergy Verified 03/28/25 13:12 Opioids - Morphine Analogues AdvReac Verified 03/28/25 13:12 penicillin Allergy Intermediate hives Uncoded 03/28/25 13:12 JOSEPH PEPPER Allergy Unknown I-RASH Uncoded 03/28/25 13:12 TAPE Allergy Unknown I-RASH Uncoded 03/28/25 13:12 PFSH [facility] Disclaimer: The information contained in this section may have been updated after the patient was seen, as this information can be updated by other users. Medical History Hypotension Fatigue Edema of both lower extremities Foot pain, left Asthma Dyspnea on exertion Generalized anxiety disorder Allergic rhinitis Encounter for screening for malignant neoplasm of lung in current smoker with 30 pack year history or greater Smoking greater than 30 pack years Seasonal allergies Mild asthma Neuropathy of left lower extremity Chronic abdominal pain Ex-smoker Abnormal stress test Atypical angina COPD (chronic obstructive pulmonary disease) Generalized muscle ache Decreased circulation Cervical radiculopathy Dyspnea Urinary incontinence Decreased mobility Frequent falls SOB (shortness of breath) Palpitations HLD (hyperlipidemia) Migraines Urinary, incontinence, stress female Vitamin D deficiency Hypertension Surgical History History of hemorrhoidectomy History of bladder suspension procedure History of laryngoscopy History of splenectomy History of vocal cord polypectomy Family History Other No significant family history Social History Smoking Status: Former smoker tobacco type: cigarettes alcohol intake: never substance use type: denies use current occupational status: disabled Travel in the last 8 weeks?: None household members: family housing: house number of children: 2 caffeine: No Have you lived/traveled outside [place] in past 30 days?: No Contact w/someone who lives/traveled outside [place] past 30 days?: No Exposure to someone with infectious disease in past 14 days?: No Do you have a fever (greater than 100.4 F or 38 C)?: No Have you tested positive for COVID-19?: No Exposed to someone with COVID-19 in past 14 days?: No Do you have a sore throat?: No Do you have a cough?: No Do you have any weakness?: No Do you have any diarrhea?: No Are you experiencing any unusual bleeding?: No Do you have any muscle aches/pain?: No Do you have any abdominal pain?: No Are you experiencing loss of taste or smell?: No Other Medical History Have you received the Flu Vaccine for this season: Yes Have you received the Pneumonia Vaccine: Yes ROS Obtained: Yes All systems reviewed & no additional complaints except as documented Physical Exam General General appearance: alert and in no apparent distress Head Head exam: atraumatic Eye Eye exam: Present PERRL and EOMI ENT ENT exam: Present normal exam and normal oropharynx Neck Neck exam: Absent tenderness or meningismus Respiratory Respiratory exam: Present normal lung sounds bilaterally; Absent respiratory distress Cardiovascular Cardiovascular exam: Present regular rate and normal rhythm Abdominal Exam Abdominal exam: Present soft; Absent distention or tenderness Neurological Exam Neurological exam: Present alert, oriented X3 and motor sensory deficit (Decree sensation in stocking glove distribution bilateral upper and lower extremities no weakness, ); Absent CN II-XII intact Medical Decision Making Medical Records Screening: Per USPSTF and CDC recommendations, given the prevalence of disease in our region, it is our hospital?s policy to screen for HIV and viral Hepatitis for all patients aged 18 and over and those with ongoing risk factors. Roland Inquiry Pt receiving controlled substance: No Vital Signs: 04/12/25 10:43 04/12/25 13:00 04/12/25 13:30 Temperature 97.8 F Temperature Source Oral Pulse Rate 86 85 Pulse Rate [Left Brachial] 98 H Respiratory Rate 18 Blood Pressure 139/87 115/73 Blood Pressure [Left Arm] 125/83 Blood Pressure Mean [Left Arm] 97 Blood Pressure Source [Left Arm] Automatic Cuff Blood Pressure Position [Left Arm] Sitting 02 Sat by Pulse Oximetry 99 94 L 94 L Oxygen Delivery Method Room Air Lab Data Lab Results 04/12/25 13:36: Sodium 140, Potassium 4.0, Chloride 104, Carbon Dioxide 31 H, BUN 17, Creatinine 1.00, Estimated Creat Clear 73, Estimated GFR 56 L, Est GFR ( Amer) 68, Glucose 99, Calcium 9.5, Magnesium 1.9, Total Bilirubin 0.8, AST 37 H, ALT 49, Alkaline Phosphatase 84, Total Protein 7.5, Albumin 4.5 04/12/25 13:36 Orders (Tests/Meds): ED MEDICATIONS Discontinued Medications Generic Name Dose Route Start Last Admin Trade Name Freq PRN Reason Stop Dose Admin Acetaminophen 1,000 mg 04/12/25 12:57 04/12/25 12:59 Acetaminophen 500mg Tab PO 04/12/25 12:58 1,000 mg ONCE ONE Administration Droperidol 2.5 mg 04/12/25 13:04 04/12/25 13:41 Droperidol 5mg/2ml Vial IV 04/12/25 13:05 2.5 mg ONCE ONE Administration Magnesium Sulfate 2 gm in 50 mls @ 50 mls/hr 04/12/25 13:04 04/12/25 13:41 Magnesium Sulfate 2gm/50ml Premix IV 04/12/25 14:03 50 mls/hr ONCE ONE Administration ORDERS Category Date Time Status CT head/brain wo con Stat Cat Scan 04/12/25 12:52 Taken Complete Blood Count Auto Diff Stat Lab 04/12/25 13:36 Received Comprehensive Metabolic Panel Stat Lab 04/12/25 13:36 Results Magnesium Stat Lab 04/12/25 13:36 Results ECG Request Stat Y 04/12/25 13:06 Ordered Medical Decision Narrative: In summary, this 64-year-old female presents to the emergency department today with headache. On initial evaluation patient is hypertensive normal heart rate saturating appropriately on room air afebrile in no acute distress.. Differential diagnosis includes but is not limited to migraine, intracranial hemorrhage, IIH, intracranial mass, status migrainosus. Based on these concerns, I ordered CBC CMP magnesium EKG, CT head. ECG personally interpreted demonstrates normal sinus rhythm, T wave inversion in V1 and V2. Patient received droperidol, magnesium for treatment. Labs personally reviewed demonstrate elevated bicarb CT imaging personally interpreted demonstrate no intracranial hemorrhage, no intracranial mass On reassessment patient has improvement of symptoms and agreeable to discharge with outpatient follow-up with neurology. Critical Care Critical Care Time Critical Care Time: No
[2025-04-12] MEDS: ACETAMINOPHEN 500MG TAB 1000 MG PO (12:59)
[2025-04-12 13:39] LABS: Hematocrit 48.9 % (37.0-47.0); Hemoglobin 15.5 g/dL (12.2-16.2); Immature Granulocytes % 0.4 %; Mean Corpuscular HGB Conc 31.7 g/dL (31.8-35.4); Mean Corpuscular Hemoglobin 30.5 pg (27.0-31.2); Mean Corpuscular Volume 96.3 fl (81-99); Nucleated Red Blood Cells % 0 %; Platelet Count 213 K/mm3 (142-424); Red Blood Count 5.08 M/mm3 (4.20-5.40); Red Cell Distribution Width-SD 47.0 fL; White Blood Count 5.6 K/mm3 (4.8-10.8)
[2025-04-12] MEDS: MAGNESIUM SULFATE IN WATER 2 GM/50 ML PIGGYBACK IV (13:41)
[2025-04-12] MEDS: droPERidol 5MG/2ML VIAL 2.5 MG IV (13:41)
[2025-04-12 13:48] LABS: Chloride 104 mmol/L (98-107); Potassium 4.0 mmoL/L (3.5-5.1); Sodium 140 mmol/L (136-145)
[2025-04-12 13:51] LABS: Alanine Aminotransferase 49 U/L (12-78); Alkaline Phosphatase 84 U/L (38-126); Aspartate Amino Transferase 37 U/L (14-36); Bilirubin,Total 0.8 mg/dl (0.2-1.3); Blood Urea Nitrogen 17 mg/dl (7-17); Calcium 9.5 mg/dl (8.4-10.2); Creatinine Clearance Estimated 73 mL/min (50-200); Creatinine,Serum 1.00 mg/dl (0.52-1.04); Estimated Glomerular Filt Rate 56 ml/min (>60); GFR (African American) 68 ML/MIN (>60); Glucose 99 mg/dl (74-100); Total Protein,Serum 7.5 g/dl (6.3-8.2)
[2025-04-12 13:52] LABS: Magnesium 1.9 mg/dl (1.6-2.3)
[2025-04-12 15:54] LABS: Anion Gap 9.0 mEq/L (5-15); Carbon Dioxide 31 mmol/L (22.0-30.0)
[2025-04-12 15:55] LABS: Albumin Level 4.5 g/dl (3.5-5.0); Albumin/Globulin Ratio 1.5 (1.1-1.8); Globulin 3.0 g/dL (1.3-3.2)
== END 2025-04-12 16:09 | disposition home or self-care (01) ==
PROVIDERS: Student in an Organized Health Care Education/Training Program; Emergency Provider Student in an Organized Health Care Education/Training Program
DX: R51.9 Headache, unspecified (principal); I10 Essential (primary) hypertension; E11.9 Type 2 diabetes mellitus without complications; E78.5 Hyperlipidemia, unspecified
CPT/HCPCS: 70450; 80053; 83735; 85025; 93005; 96365; 99285; J1790; J3475

== ENCOUNTER 2025-05-29 14:16 | Outpatient (CLI) | payer MEDICAID, SELFPAY ==
--- OUTSIDE RECORDS SUMMARY | 2025-05-25 18:07 | XMS_ITS | Continuity of Care Document ---
Author Organization [facility] Phone Care Team Providers Care Litigation Attorney Associate Name Role Phone MERA MUIR Primary Attending MERA MUIR Unavailable TANK WILLIAMSON Primary Care MERA MUIR Admitting ALLERGIES AND ADVERSE REACTIONS ALLERGIES AND ADVERSE REACTIONS Code System Allergy Substance Adverse Reaction Date Reaction (Severity) Comment Status Reported By Updated By [id number] RXNorm LYRICA Rash active Patient [id number] on August 29, 2020 12:29:39 PM UTC 66562 RXNorm CLARITHROMYCIN Rash active Patient E [id number] on August 29, 2020 12:29:39 PM UTC 2238 RXNorm CEPHALEXIN Drug-induce d nausea and vomiting active Patient [id number] on August 29, 2020 12:29:40 PM UTC CODIENE (Free Text Allergy) Rash active Patient [id number] on August 29, 2020 12:29:40 PM UTC 3640 RXNorm DOXYCYCLINE Rash active Patient [id number] 586 on August 29, 2020 12:29:40 PM UTC METOCLOPRAMIDE Rash active Patient E [id number] on August 29, 2020 12:29:40 PM UTC 12343 RXNorm TOPIRAMATE Adverse reaction to substance CONFUSION active Patient [id number] on August 29, 2020 12:29:40 PM UTC 7804 RXNorm OXYCODONE Rash active Patient [id number] 6 on August 29, 2020 12:29:40 PM UTC 7910 RXNorm PENICILLIN Rash active Patient [id number] 86 on August 29, 2020 12:29:40 PM UTC PENTAZOCINE Drug-induce d nausea and vomiting active Patient [id number] on August 29, 2020 12:29:40 PM [place] 8640 RXNorm PREDNISONE Rash active Patient [id number] 86 on August 29, 2020 12:29:40 PM [place] ROXICET (Free Text Allergy) Rash active Patient [id number] on August 29, 2020 12:29:40 PM [place] 534635 RXNorm ZOLMITRIPTAN Rash active Patient 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 9586 on August 29, 2020 12:29:40 PM UT WELCHOL Adverse reaction to substance UNK active Patient [id number] on August 29, 2020 12:29:[place] [address] RXNorm MAXALT Rash active Patient [id number] on August 29, 2020 12:29:40 PM UT [id number] RXNorm SENNA Drug-induce d nausea and vomiting active Patient [id number] on August 29, 2020 12:29:40 PM [place] IODIDES Adverse reaction to substance active [id number] on June 17, 2021 12:22:04 PM [facility] FAMILY HISTORY RELATION: Father Status: LIVING SNOMED-CT Diagnosis Age At Onset [id number] Mental disorder [id number] Cerebrovascular accident [id number] Seizure [id number] Hypertensive disorder RELATION: Mother Status: LIVING SNOMED-CT Diagnosis Age At Onset [id number] Kidney disease MEDICATIONS HOME MEDICATIONS Status RXNORM NDC Medication Dose Route Frequency Dates Comments Reported By Updated By Drug Treatment Unknown DISCHARGE MEDICATIONS Status RXNORM NDC Medication Dose Route Frequency Dates Dis pense Data Comments Physician Updated By No Discharge Medication Info rmation Available INPATIENT MEDICATIONS Status RXNORM NDC Medication Dose Route Frequency Rat e Quantity Dates Indication Dispense Data Comments Physician Updated By No Inpatient Medication Info rmation Available SOCIAL HISTORY SOCIAL HISTORY - Smoking Status SNOMED-CT Social History Element Description Effective Dates Offered Cessation Comment Updated By [id number] Historical Tobacco smoking status Former Smoker Quit in 2009 [id number] on August 12, 2022 8:39:00 PM [facility] [id number] Historical Tobacco smoking status Never Smoked [id number] on June 16, 2021 8:47:20 PM [facility] SOCIAL HISTORY - Gender Sex: Female SOCIAL HISTORY - Status : status i nformation is not available Intention in Next Year: intention information is not available SOCIAL HISTORY - Assessments Code System Description Status Date Value of Assessment Updated By Comment Assessment Information is no t available SOCIAL HISTORY - [place] Affiliation [place] information is not av ailable SOCIAL HISTORY - Legal Sex Legal Sex information is not available SOCIAL HISTORY - Sexual Behavior Sexual Orientation Gender Identity SNOMED-CT Description SNO MED -CT Description Activity Level No of Partners Partner Type UpdatedBy Information is not available SOCIAL HISTORY - Occupation Occupation information is no t available HEALTH CONCERNS Problems Concern Status Health Concern problem infor mation not available. Smoking Status Status Years Used Consumed packs p er day Health Concern smoking histo ry information not available. Family History Concern Status Health Concern family histor y information not available. MEDICAL EQUIPMENT MEDICAL EQUIPMENT Device Status Quantity Dates Procedure Comments Updated By Implantable analgesic spinal cord electrical stimulation system pulse generator TRU: ()[id number] Assigning Authority: [facility] Device Identifier:[id number] Serial Number:[id number] Expiration Date:2023-04-15 ACTIVE 1 Implanted: June 17, 2021 Implantation of neurostimulator electrode onto spinal nerve root [id number] on June 17, 2021 6:12:24 PM [facility] Implantable analgesic spinal cord electrical stimulation system pulse generator TRU: )[id number] Assigning Authority: [facility] Device Identifier:[id number] Serial Number:[id number] Expiration Date:2023-04-01 ACTIVE 1 Implanted: June 17, 2021 Implantation of neurostimulator electrode onto spinal nerve root [id number] on June 17, 2021 6:12:55 PM UTC Catheter/tube jalloh TRU: ()[id number]) [id number] Assigning Authority: FDA Device Identifier:[id number] Lot or Batch Number:[id number] Expiration Date:2022-07-03 ACTIVE 1 Implanted: June 17, 2021 Implantation of neurostimulator electrode onto spinal nerve root [id number] on June 17, 2021 6:13:30 PM UTC Catheter/tube jalloh TRU: ()[id number]) [id number] Assigning Authority: FDA Device Identifier:[id number] Lot or Batch Number:[id number] Expiration Date:2022-11-12 ACTIVE 1 Implanted: June 17, 2021 Implantation of neurostimulator electrode onto spinal nerve root [id number] on June 17, 2021 6:13:59 PM [place] Implantable analgesic spinal cord electrical stimulation system pulse generator TRU: ()[id number] Assigning Authority: [facility] Device Identifier:[id number] Serial Number:[id number] Expiration Date:2023-04-10 ACTIVE 1 Implanted: June 17, 2021 Implantation of neurostimulator electrode onto spinal nerve root [id number] on June 17, 2021 6:14:31 PM [place] Analgesic peripheral electrical nerve stimulator system TRU: ()[id number] Assigning Authority: [facility] Device Identifier:[id number] Serial Number:[id number] Expiration Date:2024-05-22 ACTIVE 1 Implanted: August 18, 2022 Revision of implant [id number] on August 18, 2022 6:01:57 PM [facility] ENCOUNTERS ENCOUNTER INFORMATION Reason for Visit OV Admission May 17, 2025 3:03:[address] [address] Discharge May 17, 2025 3:03:00 PM [facility] DISCHARGED TO HOME OR SELF CARE ENCOUNTER DIAGNOSES Notes information is not darinel ilable. Code System Diagnosis Onset Date Diagnosis information is not available. 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 [id number] on May 25, 2025 10:06:54 PM [facility] M47.816 ICD10 SPONDYLOSIS WITH OUT MYELOPATHY OR RADICULOPATHY, LUMBAR REGION [id number] on May 25, 2025 10:06:54 PM [place] M53.3 ICD10 SACROCOCCYGEAL D ISORDERS, NOT ELSEWHERE CLASSIFIED [id number] on May 25, 2025 10:06:54 PM [place] G43.709 ICD10 CHRONIC MIGRAINE WITHOUT AURA, NOT INTRACTABLE, WITHOUT STATUS MIGRAINOSUS [id number] on May 25, 2025 10:06:54 PM [place] M79.18 ICD10 MYALGIA, OTHER SITE [id number] on May 25, 2025 10:06:55 PM [place] CARE TEAM Care Litigation Attorney Associate Role MERA MUIR Primary Attending MERA MUIR Referring TANK WILLIAMSON Primary Care MERA MUIR Admitting CARE TEAM CARE shop repairer Role on Team Location Telecom Status Start Date End Marty e Updated By [facility]00 [facility] May 17, 2025 3:03:00 PM [facility] [id number] on May 17, 2025 3:03:38 PM [facility] ISADORA FERGUSON Referring normal May 17, 2025 4:00:00 AM [facility] May 17, 2025 3:03:00 PM [facility] [id number] on May 17, 2025 3:03:38 PM [facility] ISADORA FERGUSON Attending normal May 17, 2025 4:00:00 AM [facility] May 17, 2025 3:03:00 PM [facility] [id number] on May 17, 2025 3:03:38 PM [facility] ISADORA FERGUSON Admitting normal May 17, 2025 4:00:00 AM [facility] May 17, 2025 3:03:00 PM [facility] [id number] on May 17, 2025 3:03:38 PM [facility]
--- NOTE | 2025-05-29 14:21 | XR_ITS ---
FINAL REPORT CLINICAL HISTORY: SACROCOCCYGEAL DISORDER pain COMPARISON: None FINDINGS: SINGLE VIEW PELVIS: A single view of the pelvis was obtained. There is no acute fracture or dislocation. The hip joint spaces are preserved. There is a stimulator device in the superior left gluteal region. Soft tissues are unremarkable. IMPRESSION: No acute bony abnormality. Reviewed, Interpreted and Dictated by Andi Parikh MD Transcribed by Farrah Salinas Authenticated and [facility]
--- OUTSIDE RECORDS SUMMARY | 2025-05-29 14:38 | XMS_ITS | Clinical Summary ---
Author Organization [employer] [facility] are Address [address] [place] [id number] Phone Care Team Providers Care Skidder Name Role Phone Unavailable Unavailable Conditions or Problems No information available. Medications No information available. Medications Administered No information available. Allergies, Adverse Reactions, Alerts No information available. Results No information available. Plan of Care No information available. Procedures No information available. Vital Signs No information available. Immunizations No information available. Advance Directives No information available.
== END 2025-05-29 23:59 | disposition home or self-care (01) ==
LOC: RAD 14:17
PROVIDERS: PCP Nurse Practitioner Family; Visit Provider Physician Assistant
DX: M53.3 Sacrococcygeal disorders, not elsewhere classified (principal)
CPT/HCPCS: 72170